=== PATIENT | male | born 1970 | race Caucasian/White ===

== ENCOUNTER 2021-12-06 13:40 | Outpatient (REF) | payer OTHER, SELFPAY ==
[2021-12-06 14:00] LABS: MANUAL DIFF FLAG NO
[2021-12-06 14:21] LABS: Basophils Percent Auto 0.5 % (0-2); Eosinophils Absolute Auto 0.4 X10*3/uL (0.0-0.4); Eosinophils Percent Auto 4.8 % (0-4); Hematocrit 46.6 % (42.0-52.0); Hemoglobin 15.5 g/dl (14.0-18.0); Imm Gran Abs Auto 0.01 X10*3/uL (0.00-0.03); Imm Gran Pct Auto 0.1 % (0.0-0.4); Lymphocytes Absolute Auto 2.7 X10*3/uL (1.2-4.9); Lymphocytes Percent Auto 35.6 % (20-40); Mean Corpuscular HGB Conc 33.3 g/dl (31.0-36.0); Mean Corpuscular Hemoglobin 29.6 pg (27.0-33.0); Mean Corpuscular Volume 88.9 fL (80.0-98.0); Monocytes Absolute Auto 0.6 X10*3/uL (0.1-1.2); Monocytes Percent Auto 7.5 % (2-11); Neutrophils Absolute Auto 3.8 x10*3/uL (2.0-8.3); Neutrophils Percent Auto 51.5 % (45-73); Platelet Count 187 X10*3/uL (160-400); Red Blood Count 5.24 X10*6/uL (4.60-5.80); Red Cell Distribution Width 11.9 % (11.0-16.0); White Blood Count 7.5 X10*3/uL (4.8-10.8)
[2021-12-06 14:48] LABS: Alanine Aminotransferase 21 U/L (0-40); Albumin Level 4.4 g/dL (3.5-5.0); Alkaline Phosphatase 65 U/L (39-117); Anion Gap 13 (12-20); Aspartate Amino Transferase 21 U/L (5-37); Bilirubin Total 1.1 mg/dL (0.0-1.0); Blood Urea Nitrogen 10 mg/dL (9-16); Calcium 9.1 mg/dL (8.4-10.2); Carbon Dioxide 26 mmol/L (22-29); Chloride 106 mmol/L (96-108); Cholesterol 236 mg/dL; Estimated Glomerular Filt Rate > 60; Glucose Fasting 89 mg/dL (60-99); HDL Cholesterol 61 mg/dL; LDL Cholesterol Calculated 158 mg/dl; Potassium 4.1 mmol/L (3.3-5.1); Sodium 141 mmol/L (135-145); Total Protein 7.3 g/dL (6.5-8.0); Triglycerides 87 mg/dL
[2021-12-06 15:02] LABS: Free T4 (Free Thyroxine) 1.03 ng/dL (0.71-1.85); PSA,Total (Free>4and<10) 2.48 ng/mL (0.00-4.00); Thyroid Stimulating Hormone 1.28 uIU/mL (0.32-4.0); Vitamin D 25-OH Total 17.5 ng/mL (>30)
== END 2021-12-06 13:41 | disposition home or self-care (01) ==
LOC: HO.LAB 13:40
PROVIDERS: PCP Internal Medicine Medical Oncology; Visit Provider Internal Medicine Medical Oncology
DX: Z00.00 Encounter for general adult medical examination without abnormal findings (principal); Z12.5 Encounter for screening for malignant neoplasm of prostate; N40.0 Benign prostatic hyperplasia without lower urinary tract symptoms
CPT/HCPCS: 36415; 80053; 80061; 82306; 84153; 84439; 84443; 85025

== ENCOUNTER 2023-03-23 13:26 | Outpatient (AMB) | payer OTHER, SELFPAY ==
--- NOTE | 2023-03-23 13:37 | A.OFFVIS_ITS ---
Intake Vital Signs 03/23/23 13:40 Height 5 ft 7 in Weight 150 lb BMI 23.5 BP 141/74 H Blood Pressure Location Lt brachial Position Sitting Pulse 91 Intake Visit Reasons: Colonoscopy Screening Intake Note: Patient nw consult for 1st pre colonoscopy screening. Patient denies talk to me about his complain, he will talk with provider. 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 He has many questions-as to the need-for colonoscopy-he expresses anxiety over having procedure Appetite is good Normal bowel No cardiac or respiratory issues No nausea, vomiting, hematemesis, hematochezia fever or chills [facility] Social History Household Members: Family Alcohol intake: never Patient Tobacco Use Status: Former Tobacco user Tobacco use type: Cigarette Use of substances other than those prescribed or required for medical reasons: No Review of Systems Const All systems reviewed & are unremarkable except as noted in HPI and below Card Denies chest pain and Denies dyspnea Resp Denies dyspnea GI Denies abdominal pain, Denies hematochezia, Denies change in bowel habits, Denies heartburn, Denies diarrhea and Denies nausea Psych Reports anxiety Physical Exam Vital Signs: Last Vital Signs Pulse 91 03/23/23 13:40 BP 141/74 H 03/23/23 13:40 BMI result Body Mass Index 23.5 Const General: cooperative, healthy appearing, comfortable and anxious Orientation/consciousness: patient oriented x3 Limitations: no limitations Eyes Sclerae: sclerae normal Resp Effort & Inspection: normal respiratory effort and able to speak in complete sentences Auscultation: clear to auscultation bilaterally, no rales, no rhonchi and no wheezes Cardio Rate: regular rate Rhythm: regular rhythm Heart sounds: S1 normal heart sound present and S2 normal heart sound present GI Palpation (GI): Soft to palpation and nontender Auscultation: normal bowel sounds Skin General skin exam: no rashes or lesions noted Neuro General: patient oriented x3 Extrem General: Yes full ROM Psych Appearance: grossly normal and well kempt Mental Status: mental status grossly normal Speech and movement: Normal speech and movement present and Clear speech present Affect: normal affect and Anxious affect present Attitude: cooperative Thought process: Normal thought process present Thought content: Normal thought content present Assessment & Plan Assessment & Plan (1) Encounter for screening colonoscopy: Comment: Anxious, reviewed indication, anesthesia reassured Need for escorted due to anesthesia Code(s): Z12.11 - Encounter for screening for malignant neoplasm of colon Plan index screening colonoscopy MG prep Orders: Orders Colonoscopy - GI Use Only 03/23/23 Z12.11 - Encounter for screening for malignant neoplasm of colon Medications: New bisacodyl (Dulcolax (bisacodyl)) Day before procedure, prep day Take 4 tablets by mouth upon awakening followed by large glass of water 20 mg (4 x 5 mg) PO ONCE 4 tabs 0RF colonoscopy prep 1 day Z12.11 - Encounter for screening for malignant neoplasm of colon polyethylene glycol 3350 (Miralax) Take as directed by mouth the day before your procedure. 238 grams PO ONCE 238 grams 0RF laxative effect 1 day Patient Instructions: index screening colonoscopy Indications, need for escorted due to anesthesia as well as rare risks reviewed Opportunity for questions (many) answered to his satisfaction MG prep, reviewed literature given Encouraged to call questions or concerns Appreciate the opportunity assist in the care this pleasant Gent Coding Level of Care Code New Pt Level 3 (48087) Diagnoses Encounter for screening colonoscopy Z12.11 Time Spent (min) 25
[2023-03-23 13:40] VITALS: BP 141/74; PULSE 91; BMI 23.5
== END 2023-03-23 16:23 | disposition home or self-care (01) ==
PROVIDERS: PCP Internal Medicine Medical Oncology; Visit Provider Physician Assistant
DX: Z12.11 Encounter for screening for malignant neoplasm of colon (principal); Z01.818 Encounter for other preprocedural examination
CPT/HCPCS: 99203

== ENCOUNTER → 2023-03-23 13:26 | Outpatient (BNVA) | payer OTHER, SELFPAY | PROVIDERS: PCP Internal Medicine Medical Oncology; Visit Provider Physician Assistant ==

== ENCOUNTER 2024-07-05 13:26 | Outpatient (REF) | payer SELFPAY ==
--- NOTE | 2024-07-05 14:23 | MHC.AU.HA3 ---
Hearing Instrument Follow-Up- Binaural Date of Visit: 07/05/24 Follow-Up Summary: Kendell visited with a hearing test from 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 He reports he has worn them for approximately a week and finds them very impressive, but states he wants to block out all noise at times, and based on his research would like to order a pair of custom earmolds for a solid seal. 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 He states he uses the automatic program, but wants to create his own programs using the abby. Advised patient that earmolds will not create a solid seal, as he has mild hearing loss in the lows and this would be inappropriate for his hearing and the earmolds would be made with a vent. Hearing aids will not act as hearing protection/ear plugs. Advised I generally recommend earmolds due to degree of hearing loss or retention issues-- he states he would like improved retention over the medium vented domes he is currently using. States he wants titanium-- wants the best . Advised this would cost $50 extra (per Ph[employer]ak) and I do not necessarily believe this is necessary, but he feels certain he would like this material. Discussed program use, inquired further about what patient is seeking from additional programs as he agrees automatic makes excellent changes on it's own. States he would like left toggle to control volume up/down, right up to control program and right down to turn off. Advised press and hold on each device is power off. He would like a restaurant program. Recommended wearing hearing aids regularly as we wait for earmolds to come in so he can give me better idea of what sort of additional programs he would like, if he finds any are necessary at all. Holding off on programming adjustments for now as aids will need to be reprogrammed once coupled with c-shells. Quoted $340 for titanium c-shells, $50 for programming changes. Will call when c-shells arrive. Recommendations: Recommendations: Patient will be contacted when materials have arrived. Diagnosis Code(s): Primary Diagnosis: H90.3 Bilateral Sensorineural Hearing Loss Signature: Provider: Jared Mcgovern, CCC-A
== END 2024-07-05 13:27 | disposition home or self-care (01) ==
LOC: HO.HAP 13:26
PROVIDERS: Visit Provider Internal Medicine Medical Oncology
DX: Z13.89 Encounter for screening for other disorder (principal)

== ENCOUNTER 2024-07-25 07:56 | Outpatient (REF) | payer SELFPAY ==
--- OUTSIDE RECORDS SUMMARY | 2024-07-25 07:58 | XMS_ITS ---
Author Organization Dinesh Hernandez III, MD Address [address] [place] [address] [place] [address] Care Team Providers Care Motorcoach Operator Name Role Phone Dinesh Hernandez Primary Care Provider REASON FOR VISIT annual exam Social History Sex Assigned At : Social History Observation Description Sex Assigned At Male Encounters Encounter Location Date Provider Diagnosis Dinesh Hernandez III, MD [address] [place] [address] [place] [address] 2023 Dinesh Hernandez Plan Of Treatment Next Appt Details Provider Name:Dinesh Hernandez, 10/06/2024 09:30:00 AM, [address] [place] [address] [place], [address], Provider Name:Dinesh Hernandez, 03/28/2025 09:30:00 AM, [address] [place] [address] [place], [address], Progress Notes * JAVIER ASHLEY LDOB: [birth year] (53 yo M)Acc No.[id number]:2023 Progress Notes Patient:?ASHLEY HERRERA Provider:?Dinesh Hernandez MD :1970???Age:52 Y???Sex:Male Massimo e:2023 Address:[address] [place] [address] [place], [id number] Subjective: * Chief Complaints: * ???1. Annual exam. * Medical History:? Objective: * Vitals:? Assessment: Plan: * Treatment: * Images: * The named appointment provid er may or may not be the originator of this progress note, and it is not deemed complete until electronically signed by the appointment provider. Sign off status: Pending * Provider:?Dinesh Hernandez MD Date:?10/13 Generated for Magnolia meyers/Mendy/Mitesh on:?07/25/2024 07:58 AM EDT
--- OUTSIDE RECORDS SUMMARY | 2024-07-25 07:58 | XMS_ITS | Patient Health Record ---
Author Organization Dinesh Hernandez III, MD Address [address] [place] [address] [place] [address] Care Team Providers Care Technical Editor Name Role Phone Dinesh Hernandez Primary Care Provider Allergies Allergen (clinical drug [...] 0.2 - 1.3 BLD 50 Negative - Reason For Referral Reason Evaluate and Treat Diagnosis 1 Hearing loss (H91.90 ) Referral Organization Dinesh Hernandez III, MD Referring Provider First Name Dinesh Referring Provider Last Name Mary Referring Provider Speciality Internal M edicine Referred Provider [facility] [place] Referred Provider Specialty Audiologists General Notes D, Elizabeth 03/15/2024 04:22:58 PM > Referral faxed and patient scheduled appointment with office directly Referral Priority Routine Referral Appointment Date 05/16/2024 Medications Medication SIG (Take, Route, Frequency, Duration) Notes Start Date End Date Status Albuterol Sulfate HFA 108 (90 Base) MCG/ACT 1 puff as needed Inhalation every 4 hrs Active Immunizations Vaccine Route Administration Date Status Comme nts Tdap Unknown 12/19/2021 Administered COVID- 19 Vaccine Unknown 09/07/2020 Administered Social History Tobacco Use: Social History Observation [...] ast year? No Points 0 Interpretation Negative Problems Problem Type SNOMED Code ICD Code Onset Dates Problem Status W/U Status Risk Notes Problem 3935634 Former smoker (Z87.891) Active confirmed He is strongly motivated not to smoke. He has a plan to prevent relapse in times of stress. Problem 787854910 Asthma (J45.909) Active confirmed He has had no wheezing since his last visit. He denies any recent allergies. Problem Benign prostatic hyperplasia (833095205) BPH (benign prostatic hyperplasia) (N40.0) Active confirmed He rises from sleep at most once a night to urinate. We have discussed lifestyle modifications he can make to reduce nocturia. He denies dysuria or hematuria. Problem 32279411 Allergic rhinitis (J30.9) Active confirmed He had only a few sniffles during pollen season this spring. He usually experiences rhinitis, more in the fall and we discussed various therapies. He could pursue. Problem 95288519 Hearing loss (H91.90) Active confirmed He has made an appointment to go to an decorator consultant to get hearing aids. Examination of his ears today was unremarkable Problem 031875394 Multiple environmental allergies (Z91.09) Active confirmed He will use antihistamines as needed as well as fluticasone. He will call me if he needs prescription medication. Vital Signs Heart Rate 84 /min 03/24/2024 Temperature 98.1 degrees Fahrenheit 03/24/2024 Blood pressure diastolic 80, 138 mm Hg 03/24/2024 Height 68 in 03/24/2024 Blood pressure systolic 135 mm Hg 03/24/2024 Weight 152 lbs 03/24/2024 BMI 23.11 kg/m2 03/24/2024 Encounters Encounter Location Date Provider Diagnosis Dinesh Hernandez III, MD [address] [place] [address] [place] [address] 03/24/2024 Dinesh Hernandez BPH (benign prostati c hyperplasia) N40.0 ; Hearing loss H91.90 ; Asthma J45.909 ; Former smoker Z87.891 ; Multiple environmental allergies Z91.09 ; Allergic rhinitis J30.9 and Colonoscopy refused Z53.20 Dinesh Hernandez III, MD [address] [place] [address] [place] [address] 11/10/2023 Dinesh Hernandez Annual physical exam Z00.00 Dinesh Hernandez III, MD [address] [place] [address] [place] [address] 03/15/2024 Dinesh Hernandez III, MD [address] [place] [address] [place] [address] 11/09/2023 Dinesh Hernandez III, MD [address] [place] [address] [place] [address] 11/09/2023 Dinesh Hernandez III, MD [address] [place] [address] [place] [address] 11/10/2023 Dinesh Hernandez Assessments Encounter Date Diagnosis (ICD Code) Assessment [...] made an appointment to go to an decorator consultant to get hearing aids. Examination of his ears today was unremarkable 11/10/2023 Annual physical exam (ICD-10 - Z00.00) He is healthy and well, and had a normal weight. His blood pressure was slightly high. He rises from sleep several times at night. We have addressed these issues. 03/24/2024 Asthma (ICD-10 - J45.909) He has [...] was referred to gastroenterology. Plan Of Treatment Pending Test Test Name Order Date PROFILE, FASTING (COMPREHENSIVE METABOLI C) 11/07/2022 PROFILE, FASTING (COMPREHENSIVE METABOLI C) 07/24/2016 PROFILE, FASTING (COMPREHENSIVE METABOLI C) 08/29/2021 PROFILE, FASTING (COMPREHENSIVE METABOLI C) 03/24/2024 PROFILE, FASTING (COMPREHENSIVE METABOLI C) 09/25/2016 LIPID PANEL 09/25/2016 LIPID PANEL 07/24/2016 FREE T4 (FT4) 08/29/2021 TSH (THYROID STIMULATING HORMONE) 2021 PSA, TOTAL 11/07/2022 PSA, TOTAL 08/29/2021 PSA, TOTAL 09/25/2016 PSA, TOTAL 07/24/2016 PSA, TOTAL 03/24/2024 CBC w DIFF 03/24/2024 CBC w DIFF 11/07/2022 CBC w DIFF 08/29/2021 CBC w DIFF 09/25/2016 CBC w DIFF 07/24/2016 VITAMIN D 25-OH TOTAL 08/29/2021 Lipid Panel 03/24/2024 Lipid Panel 11/07/2022 Lipid Panel 08/29/2021 Next Appt Details Provider Name:Dinesh Hernandez, 10/06/2024 09:30:00 AM, [address] [place] [address] [address], [place], [address], Provider Name:Dinesh Hernandez, 03/28/2025 09:30:00 AM, [address] [place] [address] [address], [place], [address], Insurance Providers Payer Name Payer Address Payer Phone Subscriber Number Group Number Insured Name Patient Relationship to Insured Coverage Start Date Coverage End Date [employer] [facility] [address] [facility] [place] [phone] [id number] ASHLEY CONTRERAS Self - patient is the insured Medical (General) History Medical History History ICD Code Allergic rhinitis J30.9 Asthma J45.909 Multiple environmental allergies Z91.09 hearing loss injury to tip of right fourth finger wit h skin graft age 9 former smoker Surgical History Surgery Date(Month/Year) laceration tip right fourth finger requi ring skin graft 1980 age 9 left breast skin donor scar No history Hospitalization History Reason Date(Month/Year) No history
--- OUTSIDE RECORDS SUMMARY | 2024-07-25 07:59 | XMS_ITS ---
Author Organization Dinesh Hernandez III, MD Address [address] [place] [address] Care Team Providers Care Content Strategist Name Role Phone Dinesh Hernandez Primary Care Provider [phone] Reason For Referral Reason Evaluate and Treat Diagnosis 1 Hearing loss (H91.90 ) Referral Organization Dinesh Hernandez III, MD Referring Provider First Name Dinesh Referring Provider Last Name Mary Referring Provider Speciality Internal M edicine Referred Provider [facility] Referred Provider Specialty Audiologists General Notes D, Elizabeth 03/15/2024 04:22:58 PM > Referral faxed and patient scheduled appointment with office directly Referral Priority Routine Referral Appointment Date 05/16/2024 REASON FOR VISIT Referral Social History Sex Assigned At : Social History Observation Description Sex Assigned At Male Encounters Encounter Location Date Provider Diagnosis Dinesh Hernandez III, MD [address] [place] [address] [place] [address] 03/15/2024 Dinesh Hernandez Plan Of Treatment Referrals Referral Date Details 03/15/2024 03/15/2024, Evaluate and Treat, and [facility] Next Appt Details Provider Name:Dinesh Hernandez, 10/06/2024 09:30:00 AM, [address] [place] [address] [place], [address], Provider Name:Dinesh Hernandez, 03/28/2025 09:30:00 AM, [address] [place] [address] [place], [address], Progress Notes * ASHLEY HERRERA LDOB: [birth year] (53 yo M)Acc No.[id number]:03/15/2024 Patient:?ASHLEY HERRERA :1970???Age:53 Y???Sex:Male Address:[address] [place] [address], [address] Subjective: * Chief Complaints: * ???Referral * Medical History:? * Surgical History:? * Hospitalization/Major Diagno stic Procedure:? * Medications:? Objective: * Vitals:? * Physical Examination:? Assessment: Plan: * Treatment: * Procedure Codes:? * true * Date:? Generated for Magnolia meyers/Mendy/eTkaylynsmitting on:?07/25/2024 07:59 AM EDT Consultation Request Notes Referral Date Referring Provider Referred Provider Not hazel 03/15/2024 Dinesh Hernandez and Spee h Evaluate and Treat
--- OUTSIDE RECORDS SUMMARY | 2024-07-25 07:59 | XMS_ITS ---
Author Organization Dinesh Hernandez III, MD Address [address] [place] [address] Care Team Providers Care Rehanger Name Role Phone Dinesh Hernandez Primary Care [...] Date Provider Diagnosis Dinesh Hernandez III, MD [address] [place] [address] [place] [address] 03/24/2024 Dinesh Hernandez BPH (benign prostati c [...] made an appointment to go to an plastics fitter to get hearing aids. Examination of his [...] ov no tests, Regular Checkup Provider Name:Dinesh Hernandez, 10/06/2024 09:30:00 AM, [address] [place] [address] [address], [place], [address], Provider Name:Dinesh Hernandez, 03/28/2025 09:30:00 AM, [address] [place] [address] [address], [place], [address], Progress Notes * KENDELL HERRERA LDOB: [birth year] (53 yo M)Acc No.[id number]:03/24/2024 Progress Notes Patient:?KENDELL HERRERA Provider:?Dinesh Hernandez MD :1970???Age:53 Y???Sex:Male Massimo e:03/24/2024 Address:[address] [place], [place] [id number] Subjective: * Chief Complaints: * ???Annual Exam * HPI: ???Depression Screening:?PHQ-9?Little interest or pleasure in doing things?Not at all ?Feeling down, depressed, or hopeless?Not at all ?Trouble falling or staying asleep, or sleeping too much?Not at all ?Feeling tired or having little energy?Not at all ?Poor appetite or overeating?Not at all ?Feeling bad about yourself or that you are a failure, or have let yourself or your family down?Not at all ?Trouble concentrating on things, such as reading the newspaper or watching television?Not at all ?Moving or speaking so slowly that other people could have noticed; or the opposite, being so fidgety or restless that you have been moving around a lot more than usual?Not at all ?Thoughts that you would be better off or of hurting yourself in some way?Not at all ?Total Score?0 ???COVID-19 Screening:?Questions?Have you had any new onset fever, chills, cough, congestion, sore throat, shortness of breath, muscle aches??No ???SDOH Questions:?SDOH Questions?In the past year have you been worried about losing your housing??No ?In the past year have you or any family members you live with been unable to get any of the following when it was really needed? Check all that apply:?None ???:? 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 The pain is more pronounced when he gets home after work, but his knees feel okay in the morning. He also mentioned that his knees do not hurt when he is not working on weekends. 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?Sciatica?denies.?Weakness?denies.?Skin:?Itching?denies.?Rash?denies.?Skin lesion(s)?denies.?Neurologic:?Difficulty speaking?denies.?Dizziness?denies.?Headache?denies.?Low back pain?denies.?Psychiatric:?Depressed mood?denies.? * Medical History:? * Surgical History:?laceration tip right fourth finger requiring skin graft 1981age 9 left breast skin donor scar No history * Hospitalization/Major Diagno stic Procedure:?No history * Family History:?Father: dece ased 62 yrs, Cause of unknown.?Mother: 63 yrs, Cause of unknown, diagnosed with HTN.?Children: alive.?Siblings: alive.?4 brother(s) , 1 sister(s) . 1 son(s) , 1 daughter(s) - healthy. .? His sister has hypertension. His brothers have asthma and hypertension and diabetes. His 2 children are alive and healthy and well. They are Kendell and Lora. * Social History:?Tobacco Use:?Tobacco Use/Smoking?Patient is a?former smoker ?Tobacco Control (Standard)?Tobacco use:?Former smoker ?How long has it been since you last smoked??Greater than 10 years ?Additional Findings: Tobacco non-user?Ex-cigarette smoker ???Drugs/Alcohol:?Drugs?Have you used drugs other than those for medical reasons in the past 12 months??No ???Drug/Alcohol:?AUDIT-C (Standard)?Did you have a drink containing alcohol in the past year??No ?Points?0 ?Interpretation?Negative ???He was born in [place], [place]. He has been to [place] for 20 years. He has 2 healthy children. 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 * Medications:?TakingAlbuterol Sulfate HFA 108 (90 Base) MCG/ACT Aerosol Solution 1 puff as needed Inhalation every 4 hrs Medication List reviewed and reconciled with the patientTaking Albuterol Sulfate HFA 108 (90 Base) MCG/ACT Aerosol Solution 1 puff as needed Inhalation every 4 hrs Medication List reviewed and reconciled with the patient * Allergies:?No Known Drug All ergyno[Allergies Verified] Objective: * Vitals:?Ht: 68, Wt: 152, BMI :23.11, BP: 135/80,138/70, HR: 84, Temp: 98.1, Wt- k.95. * Examination: ???General Examination: ?GENERAL APPEARANCE:?pleasant, well nourished, well developed, in no acute distress, calm and relaxed, man.?HEAD:?atraumatic, normocephalic.?EYES:?eomi, perrla, anicteric, conjugate.?EARS:?Normal anatomy with significant bilateral hearing loss.?NOSE:?septum intact.?ORAL CAVITY:?normal, unremarkable.?NECK/THYROID:?no jugular venous distention, no carotid bruit, thyroid normal.?LYMPH NODES:?no enlarged lymph nodes,spleen normal.?SKIN:?no suspicious lesions, anicteric.?HEART:?no clicks, gallops, murmurs, or rubs, regular rhythm, S1, S2 normal, no s3, or vascular bruits.?LUNGS:?clear to auscultation .?BREASTS:??no masses palpable bilaterally.?ABDOMEN:?bowel sounds normal, no ascites, no organomegaly, no mass.?RECTAL EXAM:?He was referred for a colonoscopy.?MUSCULOSKELETAL:?extremities unremarkable, no clubbing, cyanosis or edema.?PERIPHERAL PULSES:?normal.?NEUROLOGIC:?alert and oriented, cranial nerves 2-12 grossly intact, deep tendon reflexes 2+ symmetrical, motor strength normal upper and lower extremities, sensory exam intact.?PSYCH:?alert, oriented, thought process logical, goal directed, speech clear, mood/affect full range, judgement and insight good, good eye contact, cooperative with exam, cognitive function intact.? : ???{'Eardrum':'Normal', 'Lungs': 'Fine', 'Heart': 'Regular rhythm, no leaking valves', 'Abdomen': 'No pain', 'Knees': 'No swelling or grinding'}. ??? Assessment: * Assessment: 1.?Hearing loss - H91.90 (Pr shaji)???Notes :He has made an appointment to go to an plastics fitter to get hearing aids.? Examination of his ears today was unremarkable???2.?BPH (benign prostatic hyperplasia) - N40.0???Notes :He rises from sleep at most once a night to urinate.? We have discussed lifestyle modifications he can make to reduce nocturia.? He denies dysuria or hematuria.???3.?Asthma - J45.909???Notes :He has had no wheezing since his last visit.? He denies any recent allergies.???4.?Former smoker - Z87.891???Notes :He is strongly motivated not to smoke. He has a plan to prevent relapse in times of stress.???5.?Multiple environmental allergies - Z91.09???Notes :He will use antihistamines as needed as well as fluticasone. He will call me if he needs prescription medication.???6.?Allergic rhinitis - J30.9???Notes :He had only a few sniffles during pollen season this spring. He usually experiences rhinitis, more in the fall and we discussed various therapies. He could pursue.???7.?Colonoscopy refused - Z53.20???Notes :In the past he did not want to have a colonoscopy.? After we discussed it again today he did agree to the procedure and he was referred to gastroenterology.??? Plan: * Treatment: 2.?Asthma?LAB: PROFILE, FASTING (COMPREHENSIVE METABOLIC) ?LAB: PSA, TOTAL ?LAB: CBC w DIFF ?LAB: Lipid Panel 3.?Others? Continue Albuterol Sulfate HFA Aerosol Solution, 108 (90 Base) MCG/ACT, 1 puff as needed, Inhalation, every 4 hrs.?? * Labs:? * ?Lab: URINE DIP STICK (C ollection Date & Time - 03/24/2024) ? Value Reference Range ?SG 1.020 1.005 - 1.025 * ?pH 5.0 5.0 - 9.0 * ?ALINE Negative Negative - * ?NIT Negative Negative - * ?PRO 30 Negative - Trac e * ?GLU Negative Negative - * ?KET 5 Negative - * ?UBG 0.2 0.1 - 1.8 * ?CHAO 1 0.2 - 1.3 * ?BLD 50 Negative - * Procedure Codes:?66953 URINE -NO MICRO * Preventive Medicine:? ??Counseling:?Smoking/Tobacco Use?Patient counseled on the dangers of tobacco use and urged to quit.?03/24/2024 * Follow Up:?6 Months, In six months (Reason: ov no tests, Regular Checkup) * Images: * Sign off status: Completed true * Provider:?Dinesh Hernandez MD Date:?03/13 Generated for Magnolia meyers/Mendy/eTransmitting on:?07/25/2024 07:58 AM EDT History and Physical Notes * HPI (History [...]
--- NOTE | 2024-07-25 10:33 | MHC.AU.HA3 ---
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 Warranty: 07/20/27 Diesel Engine Mechanic Loss and Damage Warranty: 07/20/27 [facility] Service Plan: n/a Battery Size: Rechargeable Ground Operations Superintendent/Slim Tube: 2 M Earmold/Dome/CShell/SlimTip:Phonak C-Shell Titanium Lynch S#[id number] Warranty 11/11/2024 Type of Wax Guard: cerustop Dispensed By: online purchase Left Ear: Cristino, Model, Color, Serial Number: Justin Lizarragao [id number], graphite, [id number] 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 Fit appears excellent. Pt wishes to have Real Ear measurements taken, due to equipment malfunction he can return once device is up and running for REM at no extra charge. Had several requests for programming changes. Added silent program to mimic one he created in his abby which has NR maxed out and mics fully directional. Wanted left device button to do VC, right to do program/mute, not possible in [employer] so button is now quick press VC up/down, long press program change up/mute down, press and hold power on/off. Requested names in phone for the low-energy left/right device listings to be changed, not possible. Decreased overall gain 3 dB for patient comfort. Noted dramatically different sound quality with c-shells but will return if further adjustments are needed. Recommendations: Recommendations: Hearing instrument follow-up or maintenance as needed. Diagnosis Code(s): Primary Diagnosis: H90.3 Bilateral Sensorineural Hearing Loss Signature: Provider: Jared Mcgovern, CCC-A
== END 2024-07-25 07:57 | disposition home or self-care (01) ==
LOC: HO.HAP 07:56
PROVIDERS: Visit Provider Internal Medicine Medical Oncology
DX: Z46.1 Encounter for fitting and adjustment of hearing aid (principal); H90.3 Sensorineural hearing loss, bilateral
CPT/HCPCS: 92593; 92700; V5264

== ENCOUNTER 2024-07-25 09:15 | Outpatient (REF) | payer OTHER, SELFPAY ==
[2024-07-25 09:25] LABS: MANUAL DIFF FLAG NO
[2024-07-25 09:53] LABS: Basophils Absolute Auto 0.1 X10*3/uL (0.0-0.2); Eosinophils Absolute Auto 0.5 X10*3/uL (0.0-0.4); Eosinophils Percent Auto 7.8 % (0-4); Hematocrit 46.8 % (42.0-52.0); Imm Gran Abs Auto 0.02 X10*3/uL (0.00-0.03); Imm Gran Pct Auto 0.3 % (0.0-0.4); Lymphocytes Absolute Auto 1.9 X10*3/uL (1.2-4.9); Lymphocytes Percent Auto 30.1 % (20-40); Mean Corpuscular HGB Conc 34.2 g/dl (31.0-36.0); Mean Corpuscular Hemoglobin 30.8 pg (27.0-33.0); Mean Corpuscular Volume 90.2 fL (80.0-98.0); Mean Platelet Volume 10.8 fL (9.4-12.4); Monocytes Absolute Auto 0.5 X10*3/uL (0.1-1.2); Monocytes Percent Auto 7.4 % (2-11); Neutrophils Absolute Auto 3.3 x10*3/uL (2.0-8.3); Neutrophils Percent Auto 53.4 % (45-73); Platelet Count 191 X10*3/uL (160-400); Red Blood Count 5.19 X10*6/uL (4.60-5.80); White Blood Count 6.3 X10*3/uL (4.8-10.8)
--- OUTSIDE RECORDS SUMMARY | 2024-07-25 10:14 | XMS_ITS | Continuity of Care Document ---
Author Organization [facility] Address [address] [place] [address] Phone Care Team Providers Care Traveling Accountant Name Role Phone Enabling, Services Unavailable Unavailable Allergies, Adverse Reactions, Alerts Substance Reaction Status Criticality No Known Allergies Active No Inform ation Medications Medication Instructions Dosage Effective Dates (start - stop) Status Comments Novolog FlexPen U-100 Insulin aspart 100 unit/mL (3 mL) subcutaneous inject 15 by Subcutaneous route 3 times every day 15 - Active okay to switch with covered alternatives: Admelog, Humalog, Apidra Semglee (insulin glargine-yfgn) Pen 100 unit/mL (3 mL) subcutaneous inject 62 unit by subcutaneous route every bedtime as per insulin protocol 62 unit - Active metformin ER 500 mg tablet,extended release 24 hr TAKE 2 TABLET BY ORAL ROUTE 2 TIMES EVERY DAY WITH MEALS FOR DM - Active rosuvastatin 10 mg tablet take 1 tablet by oral route every day for hyperlipidemia 10 MG - Active pen needle, diabetic 32 gauge x 3/16 use insulin daily for DM type 2 e11.65 - Active Ozempic 2 mg/dose (8 mg/3 mL) subcutaneous pen injector inject (2MG) by subcutaneous route every week on the same day of each week for DM type 2 e11.65 - Active FreeStyle Magdi 2 Sensor kit Check 3-5 times daily for DM type 2 e11.65 - Active FreeStyle Magdi 2 [place] check 3-5 times daily for DM type 2 e11.65 - Active Procedures Procedure Date Eye Exam With Photos Ind Cushion Maker 30 Min Ind Nutrition Est- 30 Min ( V V ) Ind Cushion Maker 30 Min MTM By Pharm, Est,15 Min DIAST BP < 80 MM HG SYST BP LT 130 MM HG VENIPUNCTURE [place] [id number] Panel (Q) [id number] (Q) MTM Bv Pharm Est 15 Min ( V V ) MTM Bv Pharm Est 15 Min ( V V ) Ind Nutrition Est- 30 Min ( V V ) Office Visit (Phone) RVW MEDS BY RX/DR IN [facility] AMNT PAIN NOTED; NONE PRSNT MED LIST DOCD IN [facility] MTM Bv Pharm Est 15 Min ( V V ) MTM Bv Pharm Est 15 Min ( V V ) MTM Bv Pharm Est 15 Min ( V V ) Ind Nutrition Est - 30 Min MTM Bv Pharm Est 15 Min ( V V ) 024 MTM Bv Pharm Est 15 Min ( V V ) Ind Cushion Maker 45 Min Colon Rectal Cancer Screening Office Visit, Est RVW MEDS BY RX/DR IN [facility] AMNT PAIN NOTED; NONE PRSNT MED LIST DOCD IN [facility] VENIPUNCTURE [place] [id number] (Q) [id number] Panel (Q) [id number]- TSH T4 (Q) MTM By Pharm MASTIC SPRAYER 15min ( V V ) MTM By Pharm Addl 15Min (V V ) Medical Nutrition Ind 1Hour ( V V ) Ind Cushion Maker 15 Min Office Visit, Est RVW MEDS BY RX/DR IN [facility] MED LIST DOCD IN [facility] DIAST BP < 80 MM HG SYST BP LT 130 MM HG Eye Exam With Photos Ind Cushion Maker 45 Min Hearing Test Vision Screening F.I.T Kit Given Estab Pt 40-64 Yrs RVW MEDS BY RX/DR IN [facility] MED LIST DOCD IN [facility] AMNT PAIN NOTED; PAIN PRSNT DIAST BP < 80 MM HG SYST BP LT 130 MM HG VENIPUNCTURE [place] [id number] (Q) [id number] Panel (Q) [id number]- TSH T4 (Q) [id number] Total (Q) VENIPUNCTURE [place] [id number] (Q) [id number] (Q) [id number]- LFT (Q) [id number]- Lipid Panel W/Reflex (Q) [id number]-Kzkbmiflc Trachorr (Q) 024 [id number] (Q) [id number] (Q) [id number] W/Reflux Culture (Q) 2023 [id number]-Ybryyuq D (Q) [id number] (Q) Office Visit, New AMNT PAIN NOTED; NONE PRSNT Call Center Triage Nurse Advance Directives Directive Yes / No Effective Date File Name No Information Encounters Encounter Description Practice Location Reason(s) For Visit Diagnoses Date Provider Providers Copied on Encounter Ind Cushion Maker 30 Min [facility] n, [address], [place], [address], tel:[phone] [place] Adult Retinal Screen Results (chief complaint)D M FOOT Screen (chief complaint)B lood Glucose Readings F/U (chief complaint) Type 2 diabetes mellitus without complications 5 Enabling Services. [address] [place] [address], [address], [place]. tel:[phone] [facility] n, [address] [place], [address], tel:[phone] [place] Adult T2DM (chief complaint) Exercise counselingDietar y counseling and surveillance 5 Enabling Services. [facility] [place], [address], [place]. tel:[phone] Ind Cushion Maker 30 Min [facility] n, [address] [place] [address], [address], [place] tel:[phone] [place] Adult Blood Glucose Readings F/U (chief complaint) Counseling, unspecified 5 Enabling Services. [address] [place] [address], [address], [place]. tel:[phone] MTM By Pharm, Est,15 Min [facility], [address] [place] [address], [address], [place] tel:[phone] [facility] Medicine DM type 2 (chief complaint) Type 2 diabetes mellitus without complications 5 Tossoun Jaylan. [address] [place], [place], [id number], [place]. tel:[phone] [facility] n, [address] [place], [address], tel:[phone] [place] Adult DM type 2 (chief complaint) Type 2 diabetes mellitus without complications 0- 4 Tossoun Jaylan. [address] [place], [place], [id number], [place]. tel:[phone] [facility] n, [address] [place], [address], tel:[phone] [place] Adult DM type 2 (chief complaint) Type 2 diabetes mellitus without complications 6 4 Tossoun Jaylan. [address] [place], [place], [address] [place] [address], [place]. tel:[phone] [facility] n, [address], [place], [facility], tel:[phone] [place] Adult T2DM (chief complaint) Exercise counselingDietar y counseling and surveillance 4 4 [facility] Services. [address] [place] [address], [facility], . tel:[phone] [facility] n, [address], [place], [facility], tel:[phone] [place] Adult Episodic (chief complaint)d iabetes (chief complaint) Type 2 diabetes mellitus without complications 2 3 4 [facility]. [address] [place], [address], [place]. tel:[phone] [facility] n, [address] [place], [address], tel:[phone] [place] Adult DM type 2 (chief complaint) Type 2 diabetes mellitus without complications 0 4 Tossoun Jaylan. [address] [place], [place], [id number], [place]. tel:[phone] [facility] n, [address], [place], [address], [place] tel:[phone] [facility] No Information 4 Nursing Visit. [address] [place], [place], [id number], [place]. tel:[phone] [facility] n, [address], [place], [address], [place] tel:[phone] [place] Adult DM type 2 (chief complaint) Type 2 diabetes mellitus without complications Dec-2 4 Tossoun Jaylan. [address] [place], [place], [id number], [place]. tel:[phone] [facility] n, [address] [place], [address], tel:[phone] [place] Adult DM type 2 (chief complaint) Type 2 diabetes mellitus without complications Dec-0 4 Tossoun Jaylan. [address] [place], [id number], [place]. tel:[phone] [facility] n, [address] [place], [address], [place] tel:[phone] [place] Adult t2dm (chief complaint) Exercise counselingDietar y counseling and surveillanceBody mass index (BMI) 36.0-36.9, adult Nov-2 4 Enabling Services. [address] [place], [address], [place]. tel:[phone] [facility] n, [address] [place], [address], [place] tel:[phone] [place] Adult DM type 2 (chief complaint) Type 2 diabetes mellitus without complications Nov-0 4 Tossoun Jaylan. [address] [place], [id number], [place]. tel:[phone] [facility] n, [address], [place], [address], [place] tel:[phone] [place] Adult DM type 2 (chief complaint) Type 2 diabetes mellitus without complications 4 Tossoun Jaylan. [address] [place], [place], [id number], [place]. tel:[phone] Ind Cushion Maker 45 Min [facility] n, [address], [place], [address], [place] tel:[phone] [place] Adult FreeStyle Magdi 2 Sensor Teaching (chief complaint)I nsulin Teaching (chief complaint) Counseling, unspecifiedEncou nter for screening for malignant neoplasm of colon 4 Enabling Services. [address] [place] [address], [address], [place]. tel:[phone] Office Visit, Est [facility] n, [address], [place], [address], [place] tel:[phone] [place] Adult Episodic (chief complaint)d iabetes (chief complaint) Type 2 diabetes mellitus without complication, without long-term current use of insulinMixed hyperlipidemiaTe ar of medial meniscus of left knee, current, unspecified tear type, initial encounter 4 Gabby Khan. [address] [place], [place], [id number], [place]. tel:[phone] [facility] n, [address], [place], [address], [place] tel:[phone] [place] Adult DM type 2 (chief complaint) Type 2 diabetes mellitus without complications 4 Tossoun Jaylan. [address], [place], [id number], [place]. tel:[phone] [facility] n, [address] [place], [address], tel:[phone] [place] Adult DM mgmt (chief complaint) Exercise counselingDietar y counseling and surveillance 4 Enabling Services. [address] [place] [address], [facility], . tel:[phone] Ind Cushion Maker 15 Min [facility] n, [address] [place], [address], tel:[phone] [place] Adult Trulicity Teaching (chief complaint) Counseling, unspecified 4 Enabling Services. [address] [place] [address], [facility], . tel:[phone] Office Visit, Est [facility] n, [address] [place], [address], tel:[phone] [place] Adult Episodic (chief complaint)d iabetes (chief complaint) Body mass index (BMI) 36.0-36.9, adultType 2 diabetes mellitus without complication, unspecified whether retirement insulin use 4 Gabby Khan. [address] [place], [place], [id number], . tel:[phone] [facility] n, [address] [place], [address], [place] tel:[phone] [place] Adult Cataract cortical, senile, unspecified laterality 4 [facility] Services. [address] [place] [address], [address], [place]. tel:[phone] Ind Cushion Maker 45 Min [facility] n, [facility] [place], [address], [place] tel:[phone] [place] Adult Retinal (chief complaint)D M Education (chief complaint) Type 2 diabetes mellitus with hyperlipidemiaCo unseling, unspecified Jun-3 4 En[facility] Services. [address] [place], [place], [facility], . tel:[phone] Estab Pt 40-64 Yrs [facility] n, [address], [place], [facility], tel:[phone] [place] Adult preventive exam (chief complaint)d iabetes (chief complaint)k nee pain (chief complaint) Encounter for general adult medical examination without abnormal findingsBody mass index (BMI) 36.0-36.9, adultEncounter for screening for malignant neoplasm of colonType 2 diabetes mellitus with hyperlipidemiaHy perlipidemia, unspecifiedPain, joint, knee, leftElevated bilirubin 4 Cheterese Garnerit. [address] [place], [place], [id number], . tel:[phone] Office Visit, [facility] n, [address], [place], [facility], tel:[phone] [place] Adult Episodic (chief complaint) Type 2 diabetes mellitus without complication, unspecified whether retirement insulin use 4 Julieta Ley. [address] [place], [address], . tel:[phone] [facility] n, [address] [place], [address], tel:[phone] Call Center Triage No DX Code 4 Nursing Visit. [address], [place], [id number], [place]. tel:[phone] [facility] n, [address] [place], [address], tel:[phone] No Information 4 No Information Family History Family Member Type Diagnosis Age At Onset Father Problem Hypercholesterolemia Mother Problem Diabetes mellitus Father Problem Hypertension Mother Problem Hypertension Father Problem Diabetes mellitus Mother Problem Hypercholesterolemia Immunizations Vaccine Date Status Comments SARS-COV-2 (COVID-19) vaccin e, mRNA, spike protein, LNP, preservative free, 30 mcg/0.3 mL dose 12 years of age and older (Pfizer Comirnaty) administered Note: [facility] ; Source: Other Provider INFLUENZA administered Note: [facility] ; Source: Other Provider Flu quadrivalent injectable MDCK pfree administered Note: IMM Info from CAIR, Administered at Location: [id number] ; Source: Other Provider Pneumococcal conjugate PCV20 administered Note: IMM Info from [facility]IR, Administered at Location: [facility] ; Source: Other Provider Flu quadrivalent injectable pfree administered Note: IMM Info from [facility], Administered at Location: [facility] ; Source: Other Provider COVID-19 mRNA bivalent 12+ administered N ote: IMM Info from [facility], Administered at Location: [facility] ; Source: Other Provider Orphazyme mRNA LNP-S PF 12yrs a nd older administered Note: IMM Info from [facility], Administered at [facility] ; Source: Other Provider HepB-Adult administered Note: IMM Info from [facility]IR, Administered at Location: [facility] ; Source: Other Provider Zoster administered Note: IMM Info from [facility]IR, Administered at Location: [facility] ; Source: Other Provider COVID-19, mRNA,LNP-S,PF administered Note : IMM Info from [place]IR, Administered at Location: [facility] ; Source: Other Provider Flu quadrivalent injectable MDCK pfree administered Note: IMM Info from CAIR, Administered at Location: [facility] ; Source: Other Provider Tdap administered Note: IMM Info from [facility]IR, Administered at Location: [facility] ; Source: Other Provider HepB-Adult administered Note: IMM Info from [facility]IR, Administered at Location: [facility] ; Source: Other Provider Pneumococcal 23 administered Note: IMM In fo from [facility]IR, Administered at Location: [id number] ; Source: Other Provider COVID-19, mRNA,LNP-S,PF administered Note : IMM Info from CAIR, Administered at Location: [facility] Vaccine Preventable Disease Control [facility] ; Source: Other Provider COVID-19, mRNA,LNP-S,PF administered Note : IMM Info from CAIR, Administered at Location: [facility] Vaccine Preventable Disease Control [facility] ; Source: Other Provider HepB-Adult administered Note: IMM Info from CAIR, Administered at Location: [facility] ; Source: Other Provider Zoster administered Note: IMM Info from CAIR, Administered at Location: [facility] ; Source: Other Provider Flu quadrivalent injectable pfree administered Note: IMM Info from [facility]IR, Administered at Location: [facility] ; Source: Other Provider Payers Payer name Insurance type Covered democrat ID Laine cohen(s) Covered [facility] CI [id number] Social History Type Description Quantity Date Captured Comments Alcohol Use Details Unknown Caffeine Use Details Unknown Tobacco Use Status No Information Smoking Status Never smoker Sex Male Chief Complaint And Reason For Visit From encounter dated '07/23/2024 09:00'. Retinal Screen Results (chief complaint). Description: Patient was educated on diabetic retinopathyand the importance to have a yearly retinal screen and/or ophthalmology visit. Patient was also educated on the importance to have glucose control. Discussed retinal process and answered patient's questions. Patient made aware he will not receive phone call if report comes back normal. If re tinal is unable to be viewed or if report comes back abnormal a referral will be processed and the patient will receive referral by mail to Optometry/Ophthalmology. Photos taken and uploaded to [employer] for review.Last Retinal: Pt reported that he had bilateral cataracts and he had surgery to removethem last year in [place]. Pt reports that he has not [facility]. DM: Pt presents with a history of approximately 6yrs with DM. Insulin: Pt reports that he started using insulin last year. Family Hx of Glaucoma: Pt is not sure if he has a family history of Glaucoma.Last A1C: 1 [id number] advised to contact [facility] for any further questions and/or concerns.[facility] DM FOOT Screen (chief complaint). Description: Pt presents today for monofilament exam. Discussed proper foot care and maintenance with pt. Pt verbalized understanding. Educated pt to check feet periodically, keep skin dry, apply moisturizing lotion for dryness, check often for blisters, calluses, cuts or sores, see a doctor if you notice any of these, and keep glucose in control to prevent Diabetic Neuropathy. Monofilament Exam results: NORMAL Comments: Pt reports no complaints. [facility] Blood Glucose Readings F/U (chief complaint). Description: Reason for Visit: Blood Glucose ReadingsF/U Patient came in today for a Blood Glucose Readings F/U appt. Patient brought FreeStyle Magdi 2 [place]. The following BG reading averages were obtained from the patient's FreeStyle Magdi 2reader:Last 14 days Average: [id number]: 1746am-12pm: [id number]: 2056pm-12am: 191Last 7 days Aver age:12am-6am: 1166am-12pm: [id number]: 1456pm-12am: 230Is the patient taking diabetic meds as prescribed?: YESPt reported that he did restart Ozempic and tomorrow(07/23/24) will be his third injection.Pt reports taking 2 tablets of Metformin BID. Pt reports that he injects 62 units every bedtime ofSemeglee. Pt reports that he injects 15 units of Novolog BID before meals. Any episodes of hypoglycemia within the last two months or since their previous visit? NOLast A1C results and date drawn: [id number] patient on goals for A1c <7 in order to prevent DM complications. Nutrition: Discussed recommended carb. portions. Practice portion control, reduce fat intake and eat more veggies. Eat smaller more frequent meals Pt made SMG goal to decrease carbs including sweet bread and tortillas and increase vegetable intake. Physical Activity: Recommended pt to exercise 5x/ week for at least 30 mins each time. Comments: Pt reported that he exercises twice a week for one hour. Pt made SMG to increase exercise to 3x/week. Reminded pt of upcoming Clinical Pharmacist appt. Pt verb alized understanding. [facility] Reason For Referral Reason For Referral No Information Plan Of Treatment Date Type Action Status Goal Depression screening. Due on due Goal GFR. Due on due Goal Diabetes screening. Due on due Goal Health Literacy Assessment d ue Goal Tdap due Goal Hemoglobin A1C. Due on due Goal Dental exam. Due on 025 due Goal Hep C Ab. Due on due Goal ASCVD 10 year risk. Due on A due Goal Influenza vaccine. Due on due Goal Foot exam. Due on due Goal Hepatitis C screening. Due o n due Goal Hep B (). Due on 025 due Goal Td vaccine. Due on 31 due Goal FIT. Due on due Goal TB Risk Assessment. Due on due Goal Dilated eye exam. Due on Jul due Goal Shingrix (). Due on due Goal CPE. Due on due Goal Pneumococcal vaccine. Due on due Goal Unhealthy drug use screening . Due on due Goal Diet education completed Goal CPE. Due on due Goal TB Risk Assessment. Due on due Goal Hemoglobin A1C. Due on due Goal GFR. Due on due Goal Depression screening. Due on due Goal Hep B (). Due on due Goal Influenza vaccine. Due on Oc due Goal Health Literacy Assessment d ue Goal Hep C Ab. Due on due Goal Dilated eye exam. Due on Jun due Goal Foot exam. Due on due Goal ASCVD 10 year risk. Due on due Goal Tdap due Goal Diabetes screening. Due on due Goal Unhealthy drug use screening . Due on due Goal Dental exam. Due on due Goal Td vaccine. Due on due Goal FIT. Due on due Goal Hepatitis C screening. Due o n due Goal Pneumococcal vaccine. Due on due Goal Shingrix (). Due on due Goal Diet education completed Goal Foot exam. Due on due Goal Tdap due Goal Td vaccine. Due on due Goal Hep B (1st). Due on due Goal Diabetes screening. Due on M due Goal TB Risk Assessment. Due on M due Goal Lipid panel. Due on due Goal Hemoglobin A1C. Due on due Goal Influenza vaccine. Due on Oc due Goal Pneumococcal vaccine. Due on due Goal CPE. Due on due Goal Dental exam. Due on due Goal Unhealthy drug use screening . Due on due Goal Depression screening. Due on due Goal Health Literacy Assessment d ue Goal GFR. Due on due Goal Hep C Ab. Due on due Goal ASCVD 10 year risk. Due on N due Goal Shingrix (). Due on due Goal Dilated eye exam. Due on Feb due Goal FIT. Due on due Goal Urine microalbumin. Due on N due Goal Hepatitis C screening. Due o n due Goal Urine microalbumin. Due on S due Goal Td vaccine. Due on due Goal Diabetes screening. Due on M due Goal Hepatitis C screening. Due o n due Goal Pneumococcal vaccine. Due on due Goal GFR. Due on due Goal TB Risk Assessment. Due on M due Goal Foot exam. Due on due Goal Hep C Ab. Due on due Goal Health Literacy Assessment d ue Goal Influenza vaccine. Due on Se due Goal ASCVD 10 year risk. Due on S due Goal Dental exam. Due on due Goal Hemoglobin A1C. Due on due Goal Depression screening. Due on due Goal CPE. Due on due Goal Tdap due Goal Shingrix (). Due on due Goal FIT. Due on due Goal Unhealthy drug use screening . Due on due Goal Dilated eye exam. Due on Dec due Goal Hep B (). Due on due Goal Hep C Ab. Due on due Goal ASCVD 10 year risk. Due on A due Goal Health Literacy Assessment d ue Goal FIT. Due on due Goal Hemoglobin A1C. Due on due Goal Depression screening. Due on due Goal Pneumococcal vaccine. Due on due Goal Influenza vaccine. Due on due Goal Dental exam. Due on due Goal Shingrix (). Due on due Goal Urine microalbumin. Due on A due Goal Foot exam. Due on due Goal Unhealthy drug use screening . Due on due Goal Dilated eye exam. Due on Nov due Goal CPE. Due on due Goal GFR. Due on due Goal Hep B (). Due on due Goal Hepatitis C screening. Due o n due Goal Diabetes screening. Due on M due Goal Tdap due Goal TB Risk Assessment. Due on due Goal Td vaccine. Due on due Goal Diet education completed Goal FIT. Due on due Goal Td vaccine. Due on due Goal Urine microalbumin. Due on A due Goal Hep C Ab. Due on due Goal Hepatitis C screening. Due o n due Goal Hep B (). Due on due Goal Unhealthy drug use screening . Due on due Goal TB Risk Assessment. Due on due Goal GFR. Due on due Goal Dental exam. Due on due Goal Hemoglobin A1C. Due on due Goal Dilated eye exam. Due on Nov due Goal Depression screening. Due on due Goal Influenza vaccine. Due on Au due Goal Health Literacy Assessment d ue Goal CPE. Due on due Goal ASCVD 10 year risk. Due on A due Goal Diabetes screening. Due on due Goal Foot exam. Due on due Goal Pneumococcal vaccine. Due on due Goal Shingrix (). Due on due Goal Tdap due Goal Foot exam. Due on due Goal Tdap due Goal Hepatitis C screening. Due o n due Goal Hemoglobin A1C. Due on due Goal Pneumococcal vaccine. Due on due Goal Td vaccine. Due on due Goal Hep B (). Due on due Goal Depression screening. Due on due Goal FIT. Due on due Goal Urine microalbumin. Due on due Goal CPE. Due on due Goal TB Risk Assessment. Due on due Goal Unhealthy drug use screening . Due on due Goal Diabetes screening. Due on due Goal Dental exam. Due on due Goal GFR. Due on due Goal Influenza vaccine. Due on due Goal Shingrix (). Due on due Goal Hep C Ab. Due on due Goal Health Literacy Assessment d ue Goal Dilated eye exam. Due on Oct due Goal ASCVD 10 year risk. Due on due Goal CPE. Due on due Goal Dilated eye exam. Due on Oct due Goal GFR. Due on due Goal FIT. Due on due Goal Foot exam. Due on due Goal Dental exam. Due on due Goal Hepatitis C screening. Due o n due Goal Depression screening. Due on due Goal Hep B (). Due on due Goal Unhealthy drug use screening . Due on due Goal Shingrix (). Due on due Goal Pneumococcal vaccine. Due on due Goal Diabetes screening. Due on due Goal Influenza vaccine. Due on due Goal Urine microalbumin. Due on due Goal Td vaccine. Due on due Goal Hemoglobin A1C. Due on due Goal Health Literacy Assessment d ue Goal TB Risk Assessment. Due on due Goal ASCVD 10 year risk. Due on due Goal Tdap due Goal Hep C Ab. Due on due Goal Colonoscopy. Due on due Goal Influenza vaccine. Due on due Goal Health Literacy Assessment d ue Goal Hep B (). Due on due Goal Dilated eye exam. Due on Oct due Goal Hep C Ab. Due on due Goal Urine microalbumin. Due on due Goal Shingrix (). Due on due Goal ASCVD 10 year risk. Due on due Goal CPE. Due on due Goal Hepatitis C screening. Due o n due Goal Unhealthy drug use screening . Due on due Goal Td vaccine. Due on due Goal Depression screening. Due on due Goal Hemoglobin A1C. Due on due Goal Foot exam. Due on due Goal Diabetes screening. Due on due Goal GFR. Due on due Goal TB Risk Assessment. Due on due Goal Dental exam. Due on due Goal Pneumococcal vaccine. Due on due Goal Tdap due Goal Hemoglobin A1C. Due on due Goal Diabetes screening. Due on due Goal Depression screening. Due on due Goal CPE. Due on due Goal Shingrix (). Due on due Goal Dental exam. Due on due Goal Hepatitis C screening. Due o n due Goal Pneumococcal vaccine. Due on due Goal GFR. Due on due Goal ASCVD 10 year risk. Due on due Goal Health Literacy Assessment d ue Goal Influenza vaccine. Due on due Goal Dilated eye exam. Due on August due Goal Unhealthy drug use screening . Due on due Goal Hep B (). Due on due Goal Tdap due Goal Foot exam. Due on due Goal TB Risk Assessment. Due on due Goal Urine microalbumin. Due on due Goal Colonoscopy. Due on due Goal Hep C Ab. Due on due Goal Td vaccine. Due on due Goal Health Literacy Assessment d ue Goal Urine microalbumin. Due on due Goal CPE. Due on due Goal Dilated eye exam. Due on August due Goal Hep C Ab. Due on due Goal Influenza vaccine. Due on due Goal Unhealthy drug use screening . Due on due Goal Dental exam. Due on due Goal ASCVD 10 year risk. Due on due Goal Hep B (). Due on due Goal Shingrix (). Due on due Goal Diabetes screening. Due on due Goal Foot exam. Due on due Goal Tdap due Goal Hepatitis C screening. Due o n due Goal Td vaccine. Due on due Goal Pneumococcal vaccine. Due on due Goal Hemoglobin A1C. Due on due Goal GFR. Due on due Goal TB Risk Assessment. Due on due Goal Depression screening. Due on due Goal Colonoscopy. Due on due Goal Diet education completed Goal Shingrix (). Due on due Goal Tdap due Goal Colonoscopy. Due on due Goal Td vaccine. Due on due Goal Foot exam. Due on due Goal GFR. Due on due Goal Unhealthy drug use screening . Due on due Goal Influenza vaccine. Due on due Goal Dilated eye exam. Due on August due Goal ASCVD 10 year risk. Due on due Goal Urine microalbumin. Due on due Goal Hepatitis C screening. Due o n due Goal Depression screening. Due on due Goal Pneumococcal vaccine. Due on due Goal Diabetes screening. Due on due Goal Health Literacy Assessment d ue Goal Hep C Ab. Due on due Goal Hemoglobin A1C. Due on due Goal CPE. Due on due Goal Hep B (). Due on due Goal Dental exam. Due on due Goal TB Risk Assessment. Due on due Goal Diabetes screening. Due on due Goal Colonoscopy. Due on due Goal Urine microalbumin. Due on due Goal Foot exam. Due on due Goal Depression screening. Due on due Goal Pneumococcal vaccine. Due on due Goal Health Literacy Assessment d ue Goal Hep B (). Due on due Goal Td vaccine. Due on due Goal Dilated eye exam. Due on August due Goal Unhealthy drug use screening . Due on due Goal Influenza vaccine. Due on due Goal Shingrix (). Due on due Goal GFR. Due on due Goal Hep C Ab. Due on due Goal Tdap due Goal TB Risk Assessment. Due on due Goal Hepatitis C screening. Due o n due Goal CPE. Due on due Goal Dental exam. Due on due Goal Hemoglobin A1C. Due on due Goal ASCVD 10 year risk. Due on M due Goal Unhealthy drug use screening . Due on due Goal Health Literacy Assessment d ue Goal Pneumococcal vaccine. Due on due Goal Dilated eye exam. Due on Jul due Goal ASCVD 10 year risk. Due on A due Goal Dental exam. Due on due Goal GFR. Due on due Goal CPE. Due on due Goal Influenza vaccine. Due on Ap due Goal Shingrix (). Due on due Goal Depression screening. Due on due Goal Foot exam. Due on due Goal Urine microalbumin. Due on A due Goal Hep B (). Due on due Goal Hep C Ab. Due on due Goal Hemoglobin A1C. Due on due Goal TB Risk Assessment. Due on due Goal Tdap due Goal Td vaccine. Due on due Goal Hepatitis C screening. Due o n due Goal Colonoscopy. Due on due Goal Diabetes screening. Due on due Goal Diabetes screening. Due on due Goal Hepatitis C screening. Due o n due Goal TB Risk Assessment. Due on due Goal Shingrix (). Due on due Goal Unhealthy drug use screening . Due on due Goal Foot exam. Due on due Goal Pneumococcal vaccine. Due on due Goal Hep B (). Due on due Goal Colonoscopy. Due on due Goal GFR. Due on due Goal Dental exam. Due on due Goal Dilated eye exam. Due on Jun due Goal Hemoglobin A1C. Due on due Goal ASCVD 10 year risk. Due on due Goal Urine microalbumin. Due on due Goal CPE. Due on due Goal Td vaccine. Due on due Goal Influenza vaccine. Due on Pa due Goal Health Literacy Assessment d ue Goal Tdap due Goal Hep C Ab. Due on due Goal Depression screening. Due on due Goal Unhealthy drug use screening . Due on due Goal Foot exam. Due on due Goal Diabetes screening. Due on due Goal Pneumococcal vaccine. Due on due Goal Tdap due Goal Health Literacy Assessment d ue Goal Hepatitis C screening. Due o n due Goal Influenza vaccine. Due on Pa due Goal ASCVD 10 year risk. Due on due Goal Hemoglobin A1C. Due on due Goal Shingrix (). Due on due Goal Dental exam. Due on due Goal GFR. Due on due Goal Hep C Ab. Due on due Goal Urine microalbumin. Due on due Goal Dilated eye exam. Due on Jun due Goal CPE. Due on due Goal TB Risk Assessment. Due on due Goal Depression screening. Due on due Goal Hep B (). Due on due Goal Td vaccine. Due on due Goal Colonoscopy. Due on due Goal Hep B (). Due on due Goal Urine microalbumin. Due on due Goal ASCVD 10 year risk. Due on due Goal Hemoglobin A1C. Due on due Goal Dilated eye exam. Due on Jun due Goal GFR. Due on due Goal Foot exam. Due on due Goal Dental exam. Due on due Goal Health Literacy Assessment. Due on due Goal CPE. Due on due Goal Unhealthy drug use screening . Due on due Goal Colonoscopy. Due on due Goal Tdap due Goal Diabetes screening. Due on due Goal Depression screening. Due on due Goal TB Risk Assessment. Due on due Goal Influenza vaccine. Due on Pa due Goal Hepatitis C screening. Due o n due Goal Shingrix (). Due on due Goal FIT. Due on due Goal Pneumococcal vaccine. Due on due Goal Td vaccine. Due on due Goal Hep C Ab. Due on due Referral Ordered: Orthopedics (related to Tear of medial meniscus of left knee, current, unspecified tear type, initial encounter) ordered Referral Ordered: [facility] FM Mail Censor (related to Type 2 diabetes mellitus without complications) ordered Referral Ordered: Ophthalmology (related to Cataract cortical, senile, unspecified laterality) ordered Referral Ordered: Referrals: Ophthalmology. Evaluate and treat ordered Referral Ordered: [facility] Nutrition (related to Type 2 diabetes mellitus with hyperlipidemia) ordered Referral Ordered: * [facility] Clinical Pharmacist (related to Type 2 diabetes mellitus with hyperlipidemia) ordered Referral Ordered: Physical Therapy (related to Pain, joint, knee, left) ordered Referral Ordered: MRI LE Joint w/o dye Left knee ordered Appointment ASHLEY HERRERA BOOKED Appointment ASHLEY HERRERA BOOKED Appointment ASHLEY HERRERA BOOKED History Of Present Illness Encounter Date Complaint History Of Prese nt Illness Retinal Screen Results Patient w as educated on diabetic retinopathy and the importance to have a yearly retinal screen and/or ophthalmology visit. Patient was also educated on the importance to have glucose control. Discussed retinal process and answered patient's questions. Patient made aware he will not receive phone call if report comes back normal. If retinal is unable to be viewed or if report comes back abnormal a referral will be processed and the patient will receive referral by mail to Optometry/Ophthalmology. Photos taken and uploaded to [employer] for review.Last Retinal: Pt reported that he had bilateral cataracts and he had surgery to remove them last year in [place]. Pt reports that he has not seen an [employer] [facility] in the [facility]. DM: Pt presents with a history of approximately 6yrs with DM. Insulin: Pt reports that he started using insulin last year. Family Hx of Glaucoma: Pt is not sure if he has a family history of Glaucoma.Last A1C: [id number] advised to contact [facility] for any further questions and/or concerns.[facility]. Discussed proper foot care and maintenance with pt. Pt verbalized understanding. Educated pt to check feet periodically, keep skin dry, apply moisturizing lotion for dryness, check often for blisters, calluses, cuts or sores, see a doctor if you notice any of these, and keep glucose in control to prevent Diabetic Neuropathy. Monofilament Exam results: NORMAL Comments: Pt reports no complaints. [facility] Blood Glucose Readings F/U Reaso n for Visit: Blood Glucose Readings F/U Patient came in today for a Blood Glucose Readings F/U appt. Patient brought FreeStyle Magdi 2 [place]. The following BG reading averages were obtained from the patient's FreeStyle Magdi 2 reader:Last 14 days Average: [id number]: 1746am-12pm: [id number]: 2056pm-12am: 191Last 7 days Average:12am-6am: 1166am-12pm: [id number]: 1456pm-12am: 230Is the patient taking diabetic meds as prescribed?: YESPt reported that he did restart Ozempic and tomorrow(07/23/24) will be his third injection.Pt reports taking 2 tablets of Metformin BID. Pt reports that he injects 62 units every bedtime of Semeglee. Pt reports that he injects 15 units of Novolog BID before meals. Any episodes of hypoglycemia within the last two months or since their previous visit? NOLast A1C results and date drawn: [id number] patient on goals for A1c <7 in order to prevent DM complications. Nutrition: Discussed recommended carb. portions. Practice portion control, reduce fat intake and eat more veggies. Eat smaller more frequent meals Pt made SMG goal to decrease carbs including sweet bread and tortillas and increase vegetable intake. Physical Activity: Recommended pt to exercise 5x/ week for at least 30 mins each time. Comments: Pt reported that he exercises twice a week for one hour. Pt made SMG to increase exercise to 3x/week. Reminded pt of upcoming Clinical Pharmacist appt. Pt verbalized understanding. [employer] [facility] T2DM Patient location : home Provider location: [facility] Visit Method- telephone/telehealth visit: Patient Preference Patient's name and were verified Patient consented verbally to the virtual visit. Patient was informed that they have the right to in-person services; virtual visit is voluntary; transportation is available for in-person visits; there are limitations to virtual visits. Follow-up visit RT T2DM. Pt reports continues to have 2 meals/day. Discussed recent lab results A1C increased to 10.2. Pt states went on vacation for 2 weeks and forgot all meds. Discussed importance of medication adherence. Pt shares has vegetables 2x/wk. Pt reports continues to walk 1 hr 2x/wk. Pt shares has knee pain. Recommend pt walk 30 mins 2x/day on weekends. Reviewed importance of exercise, plate method, food groups. SMBG- fastinPrevious visit RT T2DM mgmt. Pt reports taking snacks to work now. Pt shares snacks are fruits. Pt reports still having 2 meals/day. Reviewed importance of 3 meals/day 2-3 snacks. Discussed snacks that are room temp. Reviewed plate method, portion sizes. Pt shares no longer taking glipizide. Now taking ozempic. Pt shares feels ozempic is working. Pt shares drinks 1-2 bottle norris/day. Discussed importance of water. Pt shares was having coffee and sweet bread for breakfast. Discussed diabetes friendly breakfast ideas. Pt shares wakes up at 5 AM for work and arrives home at 9PM. Discussed appropriate meal patterns for pt's work schedule. Pt reports continues to have 2 meals/day. Pt continues taking ozempic. Pt denied nausea, vomiting, headaches. Pt reports has veg 3x/wk. Pt shares walks 1 hr on weekends. Pt reports has not reduced CHO portions of 3-4 to 1-2. Discussed room temp snacks to take to work. Reviewed importance on 3 meals/day. Discussed recent lab results. Kudos on reducing A1C to 8.4. Discussed methods to reduce A1c. Reviewed importance of pairing CHO with protein/fat/veg. no weight taken per phone visit. SMBG- fastin- post prandial: 189 Pt goals: - will pack snacks for work - increase veg intake to daily - reduce CHO in meals from 3-4 servings to 1-2 servings - pair Protein/fat/veg with CHO Significant Meds/Supp: metformin, ozempic 0.5 mg, Novolog, SemgleePhysical Activity: noneFood Allergies/Intolerance: NKFAFood Recall: B - 7 AM; sweet bread, coffee w/ creamerL - 12 PM; hamburger with lettuce, tomato, onion; small fries, coke zero D - 9 PM; tuna salad (lettuce, tomato, mayonnaise), 4 tostadasPrevious Food Recall:B - sweet bread, coffee w/ creamerL - 12 PM; beef, rice D - chicken stew (carrots, potato, squash, chayoteFluids: 5-6 (16 oz)Bowel Movements: RegularLabs ( 3/22/25 ): Chol: 120 ; HDL: 55 ; LDL: 51 ; TGs: 67 ; Glu: 196 ; A1C: 10.2(02/27/24): Chol: 130 ; HDL: 64 ; LDL: 52 ; TGs: 64 ; Glu: 166 ; A1C: 8.4 ( 10/10/23 ): Chol: 137 ; HDL: 59 ; LDL: 61 ; TGs: 87 ; A1C: 9.9 ( 06/27/23 ): Chol: 126 ; HDL: 52 ; LDL: 58 ; TGs: 81 ; A1C: 10 ; Vit. D: 31 Anthropometrics: 52 y/o M Ht: 5' 4 IBW: 130 #; CBW: 211.7#; BMI: 36Changes in weight: 2.3# weight gain since last RD visit 09/02/23; 209.4#Estimated Nutrition Needs: 2,375 - 2,849 kcal/dayCalorie level ranges: Males 9553-5997 calories*Calorie needs vary based on several factors-age, sex, height, weight and physical activity level Protein Males 52-56 grams daily*Protein needs vary based on several factors-age, sex, height, weight and physical activity level Fluid [id number] or 8- 12 cups of 8oz daily Fiber Male 28-34 grams daily Nutrition Diagnosis:1.Problem: Obesity RT excess intake of calories AEB BMI>30- Ongoing 2. Problem: Altered nut. related lab values (high A1C) RT non-adherence to specific diet AEB pt's comment inappropriate intake of foods saturated fat, CHO- Not Improving: A1c currently 10.2 (previously 8.4) Intervention: -Discussed lab results -Reviewed food groups, portion sizes, and plate method -Healthy snacks: fruits, vegetables, nuts, string cheese -Incorporating physical activity to weekly routine-1 hr-Limiting refined/processed carbohydrates, especially sugar, sweets, and sugar sweetened beverages 1000 Caloric Pattern - Recommended servings based on [employer]ime[employer]Tonicmyplate.gov USDA Vegetables: 3 cups/day. Bread, cereal and starches: 7 ounces/day. Protein & other meats: 6 ounces/day. Fruit 2 cups/day Dairy: 3 cups/day. 2400 Caloric Needs- Recommended servings based on Choosemyplate.gov USDA Vegetables: 3 1/2 cups/day. Bread, cereal and starches: 9 ounces/day. Protein & other meats: 6 1/2 ounces/day. Fruit 2 cups/day Dairy: 3 cups/day. 2800 Caloric NeedsHandouts: plate method, food groups, portion sizesMonitoring: - A1C labs - weight F/U in 3-4 monthsEducation provided considers health literacy level. Patient states/demonstrates understanding of assessment, plan & health education provided. Blood Glucose Readings F/U Reaso n for Visit: Blood Glucose Readings F/U Patient came in today for a Blood Glucose Readings F/U appt. Patient brought FreeStyle Magdi 2 [place] to [facility] appt. The following BG reading averages were obtained from the patient's FreeStyle Magdi 2 [place]:Last 14 day and last 7 day Average: [id number]: 1826am-12pm: 12pm-6pm: 3476pm-12am: 292Last 30 days Average: [id number]: 2876am-12pm:[id number]: 3636pm-12am: 334Is the patient taking diabetic meds as prescribed?: NOPt stated that he did not take his medications for approximately 3 weeks because he left on vacation and forgot all his medications. Pt reported that he restarted all his medications except his Ozempic approximately on 06/30/24.Pt stated that he was concerned about getting side effects from Ozempic 2mg because he has not injected Ozempic 2mg in approximately 4 weeks. Spoke with RN and regarding patient's concerns. Dr. Stephens indicated that it is okay for pt to restart Ozempic 2mg after not injecting for 4 weeks. Informed pt to restart Ozempic 2mg once weekly. Pt verbalized understanding. Pt reports that he injects 15 units of Novolog before his lunch and dinner. Pt reports that he injects 62 units of Semglee every evening.Pt reports that he takes 2 tablets of Metformin 500mg BID. Any episodes of hypoglycemia within the last two months or since their previous visit? NOComments: Educated pt on hypoglycemia prevention & demonstrated the rule of 15. Scheduled BG readings F/U with [facility].[employer] [facility] DM type 2 Follow-up appoin tment with clinical pharmacist for the management of DM type 2. SMBG levels: FS Magdi 2 (didn't bring with him)14 day avg: n/y58ig-6eu: n/l5wf-47wt: n/q26vd-3pz: n/m9jz-30mb: n/a Current DM Medications:Metformin ER 1000mg BIDSemglee 62 units at bedtimeNovolog 15 units before lunchOzempic 2 mg/week Current Cholesterol Medications:Rosuvastatin 10mg dailyPreviously tried medications & reasons for d/c:Atenolol, glipizide, piogltazone, Trulicity 1.5mg/weekFamily History? 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 SMBG levels: SYMONE Magdi 2 (doesnt have with him)14 day [id number]: 1326am-12pm: [id number]: 2286pm-12am: 230 Current DM Medications:Metformin ER 1000mg BIDSemglee 62 units at bedtimeNovolog 10 units before lunchOzempic 2 mg/week Current Cholesterol Medications:Rosuvastatin 10mg dailyPreviously tried medications & reasons for d/c:Atenolol, glipizide, piogltazone, Trulicity 1.5mg/weekFamily History? 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 (Patient's name and were verified.)Patient location: [facility] location: [facility] for telephone visit: Patient PreferencePatient consent: patient verbally consented for telephone visitOther staff involved in visit: Christelle Leiva ([employer] [facility] [employer]) for Cameroonian interpretation. DM type 2 Follow-up appoin hor[place] with clinical pharmacist for the management of DM type 2. SMBG levels: SYMONE [place] 2 (doesnt have with him)14 day avg: [id number]: [id number]-54ar: so45yk-5qz: ib1vu-04fs: naself-reports FBG 90-120 but PPGs can go up to 280s Current DM Medications:Metformin ER 1000mg BIDSemglee 62 units at bedtimeOzempic 2 mg/week Current Cholesterol Medications:Rosuvastatin 10mg dailyPreviously tried medications & reasons for d/c:Atenolol, glipizide, piogltazone, Trulicity 1.5mg/weekFamily History? 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 (Patient's name and were verified.)[facility] location[facility] homeReason for telephone visit: Patient PreferencePatient consent: patient verbally consented for telephone visitOther staff involved in visit: Christelle Leiva ([facility]) for Cameroonian interpretation. T2DM Patient location : [place] Provider location: [facility] Visit Method- telephone/telehealth visit: Patient Preference Patient's name and were verified Patient consented verbally to the virtual visit. Patient was informed that they have the right to in-person services; virtual visit is voluntary; transportation is available for in-person visits; there are limitations to virtual visits. Follow-up visit RT T2DM. Pt reports continues to have 2 meals/day. Pt continues taking ozempic. Pt denied nausea, vomiting, headaches. Pt reports has veg 3x/wk. Pt shares walks 1 hr on weekends. Pt reports has not reduced CHO portions of 3-4 to 1-2. Discussed room temp snacks to take to work. Reviewed importance on 3 meals/day. Discussed recent lab results. Kudos on reducing A1C to 8.4. Discussed methods to reduce A1c. Reviewed importance of pairing CHO with protein/fat/veg. no weight taken per phone visit. SMBG- post prandial: 189 Initial visit - DX=T2DM; Pt reports consuming 1-2 meals/day. 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 Discussed importance of having consistent meals. Pt reports sometimes misses lunch and breakfast. Pt shares would like a CGM as opposed to finger prick glucose monitor due to fingers feeling numb and hard. Pt states works 5x/wk. Weekends, pt has 3 meals/day. Discussed taking snacks for work. Pt reports taking snacks to work now. Pt shares snacks are fruits. Pt reports still having 2 meals/day. Reviewed importance of 3 meals/day 2-3 snacks. Discussed snacks that are room temp. Reviewed plate method, portion sizes. Pt shares no longer taking glipizide. Now taking ozempic. Pt shares feels ozempic is working. Pt shares drinks 1-2 bottle norris/day. Discussed importance of water. Pt shares was having coffee and sweet bread for breakfast. Discussed diabetes friendly breakfast ideas. Pt shares wakes up at 5 AM for work and arrives home at 9PM. Discussed appropriate meal patterns for pt's work schedule. SMBG- fastinPt goals: - will pack snacks for work - increase veg intake to daily - reduce CHO in meals from 3-4 servings to 1-2 servings - pair Protein/fat/veg with CHO Significant Meds/Supp: metformin, ozempic 0.5 mgPhysical Activity: noneFood Allergies/Intolerance: NKFAFood Recall: B - sweet bread, coffee w/ creamerL - 12 PM; beef, rice D - chicken stew (carrots, potato, squash, chayote)Previous Food Recall:B - coffee w/ creamer, pear/peach L - Burrito: asada, rice, beansD - skipS - skipFluids: 5-6 (16 oz)Bowel Movements: RegularLabs (02/27/24): Chol: 130 ; HDL: 64 ; LDL: 52 ; TGs: 64 ; Glu: 166 ; A1C: 8.4 ( 10/10/23 ): Chol: 137 ; HDL: 59 ; LDL: 61 ; TGs: 87 ; A1C: 9.9 ( 06/27/23 ): Chol: 126 ; HDL: 52 ; LDL: 58 ; TGs: 81 ; A1C: 10 ; Vit. D: 31 Anthropometrics: 52 y/o M Ht: 5' 4 IBW: 130 #; CBW: 211.7#; BMI: 36Changes in weight: 2.3# weight gain since last RD visit 09/02/23; 209.4#Estimated Nutrition Needs: 2,375 - 2,849 kcal/dayCalorie level ranges: Males 7045-3040 calories*Calorie needs vary based on several factors-age, sex, height, weight and physical activity level Protein Males 52-56 grams daily*Protein needs vary based on several factors-age, sex, height, weight and physical activity level Fluid wtppx-3-5Ifjtnl or 8- 12 cups of 8oz daily Fiber Male 28-34 grams daily Nutrition Diagnosis:1.Problem: Obesity RT excess intake of calories AEB BMI>30- Ongoing 2. Problem: Altered nut. related lab values (high A1C) RT non-adherence to specific diet AEB pt's comment inappropriate intake of foods saturated fat, CHO- Improving: A1c currently 8.4 (previously 9.9 on 10/09 ; 10 on 06/26) Intervention: -Discussed lab results -Reviewed food groups, portion sizes, and plate method -Healthy snacks: fruits, vegetables, nuts, string cheese -Incorporating physical activity to weekly routine-1 hr-Limiting refined/processed carbohydrates, especially sugar, sweets, and sugar sweetened beverages 1000 Caloric Pattern - Recommended servings based on Choosemyplate.gov USDA Vegetables: 3 cups/day. Bread, cereal and starches: 7 ounces/day. Protein & other meats: 6 ounces/day. Fruit 2 cups/day Dairy: 3 cups/day. 2400 Caloric Needs- Recommended servings based on Choosemyplate.gov USDA Vegetables: 3 1/2 cups/day. Bread, cereal and starches: 9 ounces/day. Protein & other meats: 6 1/2 ounces/day. Fruit 2 cups/day Dairy: 3 cups/day. 2800 Caloric NeedsHandouts: plate method, food groups, portion sizesMonitoring: - A1C labs - weight F/U in 3 monthsEducation provided considers health literacy level. Patient states/demonstrates understanding of assessment, plan & health education provided. Episodic Telephone Visit for follow up on labs vianney FUNEZ Verbal consent obtained for telephone visit. Patient was informed that they have the right to in-person services; virtual visit is voluntary; transportation is available for in-person visits; there are limitations to virtual visits.Location of patient: Patient's homeLocation of physician: [facility]. diabetes Managing with: O ral medications. Pertinent negatives include blurred vision, burning of extremities, chest pain, constant hunger, dental disease, diarrhea, dysesthesias, dyspnea, erectile dysfunction, foot ulcers, frequent infections, urinary frequency, heartburn, hypoglycemic episodes, impotence, increased fatigue, nocturia, polydipsia, slow healing wounds / sores, weight gain and weight loss. DM type 2 Follow-up appoin tment with clinical pharmacist for the management of DM type 2. SMBG levels: FS Magdi 2 (doesnt have with him)14 day [id number]: 1696am-12pm: [id number]: 1956pm-12am: 193 Current DM Medications:Metformin ER 1000mg BIDSemglee 55 units at bedtimeOzempic 1mg/week Current Cholesterol Medications:Rosuvastatin 10mg dailyPreviously tried medications & reasons for d/c:Atenolol, glipizide, piogltazone, Trulicity 1.5mg/weekFamily History? 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 (Patient's name and were verified.)[facility] location: homeReason for telephone visit: Patient PreferencePatient consent: patient verbally consented for telephone visitOther staff involved in visit: Christelle Leiva ([employer]) for Cameroonian interpretation. DM type 2 Follow-up appoin tment with clinical pharmacist for the management of DM type 2. SMBG levels: SYMONE [place] 2 (doesnt have with him)14 day avg: n/n05aq-8km: n/a8xq-13oa: n/y14uf-6ij: n/o8hh-44il: n/a Self reports FBGs can still go to 110-200sCurrent DM Medications:Metformin ER 1000mg BIDSemglee 50 units at bedtimeOzempic 0.5mg/week has not started 1mg/weekCurrent Cholesterol Medications:Rosuvastatin 10mg dailyPreviously tried medications & reasons for d/c:Atenolol, glipizide, piogltazone, Trulicity 1.5mg/weekFamily History? 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 (Patient's name and were verified.)Patient location: [facility] location: [facility] for telephone visit: Patient PreferencePatient consent: patient verbally consented for telephone visitOther staff involved in visit: Christelle Leiva ([facility] [employer]) for Cameroonian interpretation. DM type 2 Follow-up appoin [facility] with clinical pharmacist for the management of DM type 2. SMBG levels: SYMONE [place] 214 day [id number]: 1686am-12pm: [id number]: 2516pm-12am: 238# of hypoglycemic episodes:Current DM Medications:Metformin ER 1000mg BIDSemglee 42 units at bedtimeOzempic 0.5mg/week Current Cholesterol Medications:Rosuvastatin 10mg dailyPreviously tried medications & reasons for d/c:Atenolol, glipizide, piogltazone, Trulicity 1.5mg/weekFamily History? 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 (Patient's name and were verified.)Patient location: [facility] location: [facility] for telephone visit: Patient PreferencePatient consent: patient verbally consented for telephone visitOther staff involved in visit: Christelle Leiva ([facility]) for Cam[place]onian interpretation. t2dm Follow-up visit RT T2DM. Pt reports taking snacks to work now. Pt shares snacks are fruits. Pt reports still having 2 meals/day. Reviewed importance of 3 meals/day 2-3 snacks. Discussed snacks that are room temp. Reviewed plate method, portion sizes. Pt shares no longer taking glipizide. Now taking ozempic. Pt shares feels ozempic is working. Pt shares drinks 1-2 bottle norris/day. Discussed importance of water. Pt shares was having coffee and sweet bread for breakfast. Discussed diabetes friendly breakfast ideas. Pt shares wakes up at 5 AM for work and arrives home at 9PM. Discussed appropriate meal patterns for pt's work schedule. SMBG- fastinInitial visit - DX=T2DM; Pt reports consuming 1-2 meals/day. 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 Discussed importance of having consistent meals. Pt reports sometimes misses lunch and breakfast. Pt shares would like a CGM as opposed to finger prick glucose monitor due to fingers feeling numb and hard. Pt states works 5x/wk. Weekends, pt has 3 meals/day. Discussed taking snacks for work. Pt goals: - will pack snacks for work - increase veg intake - reduce CHO in meals from 3-4 servings to 1-2 servings - pair Protein/fat/veg with CHO Significant Meds/Supp: metformin, ozempic 0.5 mgPhysical Activity: noneFood Allergies/Intolerance: NKFAFood Recall:B - coffee w/ creamer, pear/peach L - Burrito: asada, rice, beansD - skipS - skipFluids: 5-6 (16 oz)Bowel Movements: RegularLabs ( 10/10/23 ): Chol: 137 ; HDL: 59 ; LDL: 61 ; TGs: 87 ; A1C: 9.9 ( 06/27/23 ): Chol: 126 ; HDL: 52 ; LDL: 58 ; TGs: 81 ; A1C: 10 ; Vit. D: 31 Anthropometrics: 52 y/o M Ht: 5' 4 IBW: 130 #; CBW: 211.7#; BMI: 36Changes in weight: 2.3# weight gain since last RD visit 09/02/23; 209.4#Estimated Nutrition Needs: 2,375 - 2,849 kcal/dayCalorie level ranges: Males 5382-6457 calories*Calorie needs vary based on several factors-age, sex, height, weight and physical activity level Protein Males 52-56 grams daily*Protein needs vary based on several factors-age, sex, height, weight and physical activity level Fluid jnurc-5-9Tbfwxh or 8- 12 cups of 8oz daily Fiber Male 28-34 grams daily Intervention: -Discussed lab results -Intro to food groups, portion sizes, and plate method -Healthy snacks: fruits, vegetables, nuts, string cheese -Incorporating physical activity to weekly routine-Limiting refined/processed carbohydrates, especially sugar, sweets, and sugar sweetened beverages 1000 Caloric Pattern - Recommended servings based on Lime&Tonicmyplate.gov USDA Vegetables: 3 cups/day. Bread, cereal and starches: 7 ounces/day. Protein & other meats: 6 ounces/day. Fruit 2 cups/day Dairy: 3 cups/day. 2400 Caloric Needs- Recommended servings based on Lime[employer]Tonicmyplate.gov USDA Vegetables: 3 1/2 cups/day. Bread, cereal and starches: 9 ounces/day. Protein & other meats: 6 1/2 ounces/day. Fruit 2 cups/day Dairy: 3 cups/day. 2800 Caloric Needs Nutrition Diagnosis:1.Problem: Obesity RT excess intake of calories AEB BMI>30- Ongoing 2. Problem: Altered nut. related lab values (high A1C) RT non-adherence to specific diet AEB pt's comment inappropriate intake of foods saturated fat, CHO- Ongoing: A1c currently 9.9 (previously 10)Handouts: plate method, food groups, portion sizesF/U in 3 monthsEducation provided considers health literacy level. Patient states/demonstrates understanding of assessment, plan & health education provided. DM type 2 Follow-up appoin [facility] with clinical pharmacist for the management of DM type 2. SMBG levels: (using FS Magdi 2 but doesn't have his reader to work)Fastin-150s but an go to the 200s.PPG: <278# of hypoglycemic episodes:Current DM Medications:Metformin ER 1000mg BIDSemglee 35 units at bedtimeOzempic 0.5mg/week Current Cholesterol Medications:Rosuvastatin 10mg dailyPreviously tried medications & reasons for d/c:Atenolol, glipizide, piogltazone, Trulicity 1.5mg/weekFamily History? 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 (Patient's name and were verified.)Patient location: [facility] location: [facility] for telephone visit: Patient PreferencePatient consent: patient verbally consented for telephone visitOther staff involved in visit: Christelle Leiva ([employer] [facility] [employer]) for Cameroonian interpretation. DM type 2 Follow-up appoin [facility] with clinical pharmacist for the management of DM type 2. SMBG levels: (FS magdi 2 picked up, hasn't started but will start this week)Fastin-220PPG: <240# of hypoglycemic episodes:Current DM Medications:Metformin ER 1000mg BIDTrulicity 1.5mg/weekSemglee 25 units at bedtime started 5 days ago (after labs)Current Cholesterol Medications:Rosuvastatin 10mg dailyPreviously tried medications & reasons for d/c:Atenolol, glipizide, piogltazoneFamily History? 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 (Patient's name and were verified.)[facility]: Patient PreferencePatient consent: patient verbally consented for telephone visitOther staff involved in visit: Christelle Leiva ([employer] [facility]) for Cameroonian interpretation. FreeStyle Magdi 2 Se nsor Teaching Reason for Visit: FreeStyle Magdi 2 Sensor and [place] Teaching Patient came in today for a FreeStyle Magdi 2 Sensor and [place] teaching appointment with [facility]. Patient brought in both FreeStyle Magdi 2 Sensor and reader. The patient was instructed to wash hands with soap and water or use hand ruling machine feeder before applying the FreeStyle Magdi 2 Sensor. The patient was instructed on how to properly use and apply FreeStyle Magdi 2 Sensor and [place]. Reviewed all parts with pt and helped set correct date and time. Pt instructed to only use back of arm to place sensor, clean area with alcohol wipe, how to prepare/ apply sensor, and how to initiate new sensor with reader by both verbal instruction and demonstration. Pt was able to verbalize understanding, and was able to apply and initiate sensor correctly in-office. Made aware he will need to wait 1 hr before checking blood sugar after each new sensor, and will need to replace his sensor every 2 weeks. Patient verbalized understanding.- [employer]-[facility] Insulin Teaching Reason for Visi t: Insulin Teaching Patient came in today for insulin pen teaching. Patient brought in Tresiba insulin pen for teaching. Reinforced medication compliance, by informing patient that per his provider's instructions he needs to inject 25 units of Tresiba at bedtime. Patient verbalized understanding. Pt was taught how to use insulin pen , and how to administer insulin by both verbal instruction and demonstration. Walked patient through each step without actually doing the steps at first. Pen must remain in the refrigerator at all times. Wash hands with water and soap; check expiration date; make sure you have a pen needle ready, sharps container and alcohol wipes. Check that insulin is clear and colorless and not cloudy, attach new needle; prime pen by turning dose selector to select 2 units and press and hold the dose button until the dose counter shows 0 . Make sure a drop of insulin appears. Select correct dose by turning the dose selector. Wipe site of injection with an alcohol wipe and let dry before injecting. Inject and press and hold the dose button, and after dose counter reaches 0 , slowly count to six. Patient was educated on the proper way to dispose of used needles. Provided patient with needle disposal flyer. Any episodes of hypoglycemia within the last two months or since their previous visit? NOComments: Educated pt on hypoglycemia prevention & demonstrated the rule of 15. Provided pt with new BG log and advised to bring during next visit with [facility], Clinical Pharmacist, and PCP. Scheduled blood glucose readings follow-up appointment with [facility]. [employer] [facility] Episodic Lab results. Karli martinez requesting cholesterol med- patient is out of meds. Shwetha. LVNTelephone visit is conducted per patient's preference. Patient is at home. Provider is in [facility]. Patient has been informed that there are limitations to telephone visits and they can make an in-person visit when desired. Patient verbally consents to the virtual visit. Interpretation language: CHINESE diabetes Managing with: O ral medications. Pertinent negatives include blurred vision, burning of extremities, chest pain, constant hunger, dental disease, diarrhea, dysesthesias, dyspnea, erectile dysfunction, foot ulcers, frequent infections, urinary frequency, heartburn, hypoglycemic episodes, impotence, increased fatigue, nocturia, polydipsia, slow healing wounds / sores, weight gain and weight loss. Additional information: 52yo M here for f/u DM. Saw diabetic specialist. did not start Insulin yet and has appointment for teaching scheduled.. DM type 2 Initial appointm ent with clinical pharmacist for the management of DM type 2. SMBG levels:Fastin-220PPG: <300# of hypoglycemic episodes:Current DM Medications:Metformin ER 1000mg BIDPiogltiazone 30mg dailyTrulicity 0.75mg/weekGlipidie ER 10mg BIDCurrent Cholesterol Medications:Rosuvastatin 10mg dailyPreviously tried medications & reasons for d/c:AtenololFamily History? 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 (Patient's name and were verified.)Patient location: homeProvider [facility]: [facility]Reason for telephone visit: Patient PreferencePatient consent: patient verbally consented for telephone visitOther staff involved in visit: Christelle Leiva ([employer] [facility]) for Cameroonian interpretation. DM mgmt Patient location : home Provider location: [facility] Visit Method- telephone/telehealth visit: Patient Preference Patient's name and were verified Patient consented verbally to the virtual visit. Patient was informed that they have the right to in-person services; virtual visit is voluntary; transportation is available for in-person visits; there are limitations to virtual visits. Initial visit - DX= Pt reports consuming 1-2 meals/day. 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 Discussed importance of having consistent meals. Pt reports sometimes misses lunch and breakfast. Pt shares would like a CGM as opposed to finger prick glucose monitor due to fingers feeling numb and hard. Pt states works 5x/wk. Weekends, pt has 3 meals/day. Discussed taking snacks for work. Pt goals: - will pack snacks for work Significant Meds/Supp: metformin, glipizide pioglitazonePhysical Activity: noneFood Allergies/Intolerance: NKFAFood Recall:B - coffee with breadL - hamburgerD - does not rememberS - Fluids: 5-6 (16 oz)Bowel Movements: RegularLabs ( 06/27/23 ): Chol: 126 ; HDL: 52 ; LDL: 58 ; TGs: 81 ; A1C: 10 ; Vit. D: 31 Anthropometrics: 52 y/o M Ht: 5' 4 IBW: 130 #; CBW: 209.4 #; BMI: 36Changes in weight: weight gain/lost since last MD visit Estimated Nutrition Needs: 2,375 - 2,849 kcal/dayCalorie level ranges: Males 2616-3067 calories*Calorie needs vary based on several factors-age, sex, height, weight and physical activity level Protein Males 52-56 grams daily*Protein needs vary based on several factors-age, sex, height, weight and physical activity level Fluid oivyw-2-7Loedje or 8- 12 cups of 8oz daily Fiber Male 28-34 grams daily Intervention: -Discussed lab results -Intro to food groups, portion sizes, and plate method -Healthy snacks: fruits, vegetables, nuts, string cheese -Incorporating physical activity to weekly routine-Limiting refined/processed carbohydrates, especially sugar, sweets, and sugar sweetened beverages 1000 Caloric Pattern - Recommended servings based on [employer] Vegetables: 3 cups/day. Bread, cereal and starches: 7 ounces/day. Protein & other meats: 6 ounces/day. Fruit 2 cups/day Dairy: 3 cups/day. 2400 Caloric Needs- Recommended servings based on Yasmo.gov [place] [employer] Vegetables: 3 1/2 cups/day. Bread, cereal and starches: 9 ounces/day. Protein & other meats: 6 1/2 ounces/day. Fruit 2 cups/day Dairy: 3 cups/day. 2800 Caloric Needs Nutrition Diagnosis:1.Problem: Obesity RT excess intake of calories AEB BMI>302. Problem: Altered nut. related lab values (high A1C) RT non-adherence to specific diet AEB pt's comment inappropriate intake of foods saturated fat, CHOHandouts: plate method, food groups, portion sizesF/U in 3 monthsEducation provided considers health literacy level. Patient states/demonstrates understanding of assessment, plan & health education provided. Trulicity Teaching Reason for Vi sit: Trulicity TeachingPatient came in today for a Trulicity teaching. Patient bought Trulicity with him today for teaching. Explained to patient that Trulicity is not insulin, but it is a once a week injectable medication that will help him control his glucose levels along with diet, exercise and the other oral medications prescribed. Walked patient through each step without preparing pen first. Pen must remain in the refrigerator at all times. Wash hands with water and soap; check expiration date; make sure you have a sharps container; Make sure pen is locked; remove cap; unlock pen; place on skin; inject. . Asked patient if he would like to inject Trulicity right now. Patient denied and stated that he would inject tomorrow on 08/23/2023. Patient reported that he has not taken his Metformin in the past three days because he needs a refill. I spoke with patient's pharmacy and they informed me that the Metformin is not being covered by the patient's insurance. Spoke with RN on-site, and she sent the patient's PCP a medication refill request informing PCP that the patient's Metformin is not being covered by his insurance. RN informed me that the patient can go to his pharmacy in person and inform the Pharmacy staff that his PCP was sent a message informing him that the patient's Metformin is not being covered by his insurance, and the patient can purchase or ask the Pharmacy for a limited supply of his Metformin dosage. Patient was informed and he verbalized understanding. Any episodes of hypoglycemia within the last two months or since their previous visit? NO Comments: Educated pt on hypoglycemia prevention & demonstrated the rule of 15. Provided pt with new BG log and advised to bring during next visit Scheduled [facility] blood glucose readings F/USContreras [facility] Episodic Patient is here for mri results. Megan MIGUEL MA diabetes The problem is g etting worse. Patient is compliant with using medication, and follow-up. Managing with: Oral medications. Pertinent negatives include blurred vision, burning of extremities, chest pain, constant hunger, dental disease, diarrhea, dysesthesias, dyspnea, erectile dysfunction, foot ulcers, frequent infections, urinary frequency, heartburn, hypoglycemic episodes, impotence, increased fatigue, nocturia, polydipsia, slow healing wounds / sores, weight gain and weight loss. Additional information: 52yo M here for f/u labs and DM. Taking meds as prescribed.. Retinal Patient was educ ated on diabetic retinopathy and the importance to have a yearly retinal screen and/or ophthalmology visit. Patient was also educated on the importance to have glucose control. Discussed retinal process and answered patient's questions. Patient made aware he will not receive phone call if report comes back normal. If retinal is unable to be viewed or if report comes back abnormal a referral will be processed and the patient will receive referral by mail to Optometry/Ophthalmology. Photos taken and uploaded to [employer] for review.Last Retinal: Patient reported that he last saw a specialist on May-2023. Patient reported that he has cataracts in both eyes, but he states that the condition is worse in his left eye. DM: Patient reported that he has had DM for approximately 6 years. Insulin: NOFamily Hx of Glaucoma: NO Last A1C:ontinuance of care appointments were made including [employer].Patient advised to contact [facility] for any further questions and/or concerns.[employer] [facility] DM Education Reason for visit : DM Education Length of diagnosis: Patient reported that he has had DM for approximately 6 years. Educated pt about what diabetes is ,different types of DM; signs and symptoms; risk factors, prevention Reviewed complications Last A1C results and date drawn: June2023 Educated patient on goals for A1c <7 in order to prevent DM complications. Is the patient taking diabetic meds as prescribed?: Patient reported that he is taking diabetic medications as prescribed. Blood sugar ranges from glucometer or log: Patient reported that he currently is checking his blood glucose readings once or twice a week. Patient also reported that he is using a FreeStyle Lite glucometer, but he has very few teststrips remaining. INFORMATION TECHNOLOGY DATA ANALYST sent to PCP. Patient reported that his fasting blood glucose readings are approximately in the 240s.Patient reported that after eating lunch his blood glucose readings are approximately in the 280s.Any episodes of hypoglycemia within the last two months or since their previous visit? NOComments: Educated pt on hypoglycemia prevention & demonstrated the rule of 15. Provided pt with new BG log and advised to bring during next visit Nutrition: Reviewed MyPlate MethodDiscussed recommended carb. portions. Practice portion control, reduce fat intake and eat more veggies. Eat smaller more frequent meals Patient reported that he has stopped drinking soda. He stated that he usually has approximately 5 tortillas daily.Patient stated that he has a cup of coffee and bread in the morning for breakfast.Patient requested a referral with laborer plumbing, and the patient was scheduled an appointment with laborer plumbing. Physical Activity: Recommended patient to exercise 5x/ week for at least 30 mins each time. Patient reported that he currently does no physical activity due to his knee pain. Scheduled patient an appointment with laborer plumbing. Andreinajohanna [facility] knee pain It occurs consta ntly and is worsening. Location: left knee. The pain is dull. The pain is aggravated by bending, walking and standing. Pertinent negatives include bruising, crepitus, decreased mobility, difficulty initiating sleep, joint instability, joint tenderness, limping, locking, nocturnal awakening, nocturnal pain, numbness, popping, spasms, swelling, tingling in the arms, tingling in the legs and weakness. Additional information: went to , had normal left knee xray. pain still persists. not improved with NSAIDs or knee sleeve. diabetes The problem is s table. Managing with: Oral medications. Pertinent negatives include blurred vision, burning of extremities, chest pain, constant hunger, dental disease, diarrhea, dysesthesias, dyspnea, erectile dysfunction, foot ulcers, frequent infections, urinary frequency, heartburn, hypoglycemic episodes, impotence, increased fatigue, nocturia, polydipsia, slow healing wounds / sores, weight gain and weight loss. Additional information: 52yo M w/ pmh DM here to follow up of labs. preventive exam Episodic The symptoms are reported as being mild. The patient states the symptoms are acute. telephone Visit pt requesting refill on meds for dm vianney FUNEZ Verbal consent obtained for telephone visit. Patient was informed that they have the right to in-person services; virtual visit is voluntary; transportation is available for in-person visits; there are limitations to virtual visits.Location of patient: Patient's homeLocation of physician: [facility] here to establish care h/o dm , HTNmeds: Metformin 750mg po bidtenolol 25mg po Glipizide 10mg po bidPioglitazone 30mg po QDsurgery hernia repairfamily history: mother father : htn, dm hyperlipidemia Functional Status Date Functional Assessmen t No Information Instructions Date Instruction Additional Infor mation Education provided c onsiders health literacy level. Patient states/demonstrates understanding ofthe assessment, plan, and health education provided. Related to Type 2 diabetes mellitus without complications Exercise education Related to Ex ercise Counseling Diet education Related to Dieta ry Counseling and Surveillance Education provided c onsiders health literacy level. Patient states/demonstrates understanding ofthe assessment, plan, and health education provided. Related to Counseling, unspecified A blood glucose log and medication list were provided for the patient with specific instruction on how and when to take medications and check/log blood glucose. Instructed patient to bring back this log for every CMM visit. Discussed how to identify and treat low blood sugar (hypoglycemia). Lab results discussed with patient and all questions were answered. Medication therapy plan was extensively discussed including possible adverse drug reactions, drug interactions, and therapeutic effects. Education: Education provided considers health literacy level. Patient states/demonstrates understanding of the assessment, plan, and health education provided. Related to Type 2 diabetes mellitus without complications A blood glucose log and medication list were provided for the patient with specific instruction on how and when to take medications and check/log blood glucose. Instructed patient to bring back this log for every CMM visit. Discussed how to identify and treat low blood sugar (hypoglycemia). Lab results discussed with patient and all questions were answered. Medication therapy plan was extensively discussed including possible adverse drug reactions, drug interactions, and therapeutic effects. Education: Education provided considers health literacy level. Patient states/demonstrates understanding of the assessment, plan, and health education provided. Related to Type 2 diabetes mellitus without complications A blood glucose log and medication list were provided for the patient with specific instruction on how and when to take medications and check/log blood glucose. Instructed patient to bring back this log for every CMM visit. Discussed how to identify and treat low blood sugar (hypoglycemia). Lab results discussed with patient and all questions were answered. Medication therapy plan was extensively discussed including possible adverse drug reactions, drug interactions, and therapeutic effects. Education: Education provided considers health literacy level. Patient states/demonstrates understanding of the assessment, plan, and health education provided. Related to Type 2 diabetes mellitus without complications Exercise education Related to Ex ercise Counseling Diet education Related to Dieta ry Counseling and Surveillance A blood glucose log and medication list were provided for the patient with specific instruction on how and when to take medications and check/log blood glucose. Instructed patient to bring back this log for every CMM visit. Discussed how to identify and treat low blood sugar (hypoglycemia). Lab results discussed with patient and all questions were answered. Medication therapy plan was extensively discussed including possible adverse drug reactions, drug interactions, and therapeutic effects. Education: Education provided considers health literacy level. Patient states/demonstrates understanding of the assessment, plan, and health education provided. Related to Type 2 diabetes mellitus without complications A blood glucose log and medication list were provided for the patient with specific instruction on how and when to take medications and check/log blood glucose. Instructed patient to bring back this log for every CMM visit. Discussed how to identify and treat low blood sugar (hypoglycemia). Lab results discussed with patient and all questions were answered. Medication therapy plan was extensively discussed including possible adverse drug reactions, drug interactions, and therapeutic effects. Education: Education provided considers health literacy level. Patient states/demonstrates understanding of the assessment, plan, and health education provided. Related to Type 2 diabetes mellitus without complications A blood glucose log and medication list were provided for the patient with specific instruction on how and when to take medications and check/log blood glucose. Instructed patient to bring back this log for every CMM visit. Discussed how to identify and treat low blood sugar (hypoglycemia). Lab results discussed with patient and all questions were answered. Medication therapy plan was extensively discussed including possible adverse drug reactions, drug interactions, and therapeutic effects. Education: Education provided considers health literacy level. Patient states/demonstrates understanding of the assessment, plan, and health education provided. Related to Type 2 diabetes mellitus without complications A blood glucose log and medication list were provided for the patient with specific instruction on how and when to take medications and check/log blood glucose. Instructed patient to bring back this log for every CMM visit. Discussed how to identify and treat low blood sugar (hypoglycemia). Lab results discussed with patient and all questions were answered. Medication therapy plan was extensively discussed including possible adverse drug reactions, drug interactions, and therapeutic effects. Education: Education provided considers health literacy level. Patient states/demonstrates understanding of the assessment, plan, and health education provided. Related to Type 2 diabetes mellitus without complications Diet education Related to Dieta ry Counseling and Surveillance Exercise education Related to Ex ercise Counseling A blood glucose log and medication list were provided for the patient with specific instruction on how and when to take medications and check/log blood glucose. Instructed patient to bring back this log for every CMM visit. Discussed how to identify and treat low blood sugar (hypoglycemia). Lab results discussed with patient and all questions were answered. Medication therapy plan was extensively discussed including possible adverse drug reactions, drug interactions, and therapeutic effects. Education: Education provided considers health literacy level. Patient states/demonstrates understanding of the assessment, plan, and health education provided. Related to Type 2 diabetes mellitus without complications A blood glucose log and medication list were provided for the patient with specific instruction on how and when to take medications and check/log blood glucose. Instructed patient to bring back this log for every CMM visit. Discussed how to identify and treat low blood sugar (hypoglycemia). Lab results discussed with patient and all questions were answered. Medication therapy plan was extensively discussed including possible adverse drug reactions, drug interactions, and therapeutic effects. Education: Education provided considers health literacy level. Patient states/demonstrates understanding of the assessment, plan, and health education provided. Related to Type 2 diabetes mellitus without complications Education provided c onsiders health literacy level. Patient states/demonstrates understanding ofthe assessment, plan, and health education provided. Related to Counseling, unspecified You will be referred to a orthopedic surgeon. Please expect a letter in the mail with contact information. Please call to schedule an appointment once you receive the contact information. Related to Tear of medial meniscus of left knee, current, unspecified tear type, initial encounter Decrease intake of f ried food, butter, and red meatTry and exercise 30 minutes a day 5 days a week Related to Mixed hyperlipidemia Educated patient on complications of DM and how to prevent them with proper diet, exercise, and insulin/medication administration and adherence. Educated patient on proper BG monitoring and how to keep a BG log. A blood glucose log and medication list were provided for the patient with specific instruction on how and when to take medications and check/log blood glucose. Instructed patient to bring back this log for every CMM visit. Discussed how to identify and treat low blood sugar (hypoglycemia). Lab results discussed with patient and all questions were answered. Medication therapy plan was extensively discussed including possible adverse drug reactions, drug interactions, and therapeutic effects. Education: Education provided considers health literacy level. Patient states/demonstrates understanding of the assessment, plan, and health education provided. Related to Type 2 diabetes mellitus without complication, without long-term current use of insulin Educated patient on complications of DM and how to prevent them with proper diet, exercise, and insulin/medication administration and adherence. Educated patient on proper BG monitoring and how to keep a BG log. A blood glucose log and medication list were provided for the patient with specific instruction on how and when to take medications and check/log blood glucose. Instructed patient to bring back this log for every CMM visit. Discussed how to identify and treat low blood sugar (hypoglycemia). Lab results discussed with patient and all questions were answered. Medication therapy plan was extensively discussed including possible adverse drug reactions, drug interactions, and therapeutic effects. Education: Education provided considers health literacy level. Patient states/demonstrates understanding of the assessment, plan, and health education provided. Related to Type 2 diabetes mellitus without complications Diet education Related to Dieta ry Counseling and Surveillance Exercise education Related to Ex ercise Counseling Education provided c onsiders health literacy level. Patient states/demonstrates understanding ofthe assessment, plan, and health education provided. Related to Counseling, unspecified Education provided c onsiders health literacy level. Patient states/demonstrates understanding ofthe assessment, plan, and health education provided. Related to Type 2 diabetes mellitus without complication, unspecified whether exterminator termite insulin use Education provided c onsiders health literacy level. Patient states/demonstrates understanding ofthe assessment, plan, and health education provided. Related to Counseling, unspecified Education provided c onsiders health literacy level. Patient states/demonstrates understanding ofthe assessment, plan, and health education provided. Related to Type 2 diabetes mellitus with hyperlipidemia it is important to e at more vegetables and lean meats, avoid fast food, fried food, and sugary drinks and snacks. try and exercise 30 minutes a day for 5 days a week . Related to Encounter for general adult medical examination without abnormal findings please schedule an M RI of your left knee You will be referred to a physical therapist. Please expect a letter in the mail with contact information. Please call to schedule an appointment once you receive the contact information. Related to Pain, joint, knee, left please schedule an a ppointment with the diabetic specialist It is important to cut down on foods high in sugar and also high in carbohydrates such as bread, pasta, tortillas, and sweets Related to Type 2 diabetes mellitus with hyperlipidemia fasting labs today-- -> ff up with pcphealthy lifestyle continue meds Related to Type 2 diabetes mellitus without complication, unspecified whether exterminator termite insulin use Assessments Type Assessment Date assessment Type 2 diabetes mellitus without complications Patient Care Teams Name Effective Dates (start - stop) Status Members No Information
[2024-07-25 10:22] LABS: Alanine Aminotransferase 38 U/L (0-40); Albumin Level 4.4 g/dL (3.5-5.0); Alkaline Phosphatase 56 U/L (39-117); Anion Gap 9 (12-20); Aspartate Amino Transferase 30 U/L (5-37); Bilirubin Total 0.5 mg/dL (0.0-1.0); Blood Urea Nitrogen 12 mg/dL (9-16); Calcium 9.4 mg/dL (8.4-10.2); Carbon Dioxide 28 mmol/L (22-29); Chloride 107 mmol/L (96-108); Cholesterol 228 mg/dL (<200); Estimated Glomerular Filt Rate > 60; Glucose Fasting 99 mg/dL (60-99); HDL Cholesterol 65 mg/dL (>40); LDL Cholesterol Calculated 151 mg/dL (<100); Potassium 4.1 mmol/L (3.3-5.1); Sodium 140 mmol/L (135-145); Total Protein 7.2 g/dL (6.5-8.0); Triglycerides 64 mg/dL (<150)
[2024-07-25 10:41] LABS: Prostate Specific Antigen 3.42 ng/mL (<0.05-4.0)
== END 2024-07-25 09:16 | disposition home or self-care (01) ==
LOC: HO.LAB 09:15
PROVIDERS: PCP Internal Medicine Medical Oncology; Visit Provider Internal Medicine Medical Oncology
DX: N40.0 Benign prostatic hyperplasia without lower urinary tract symptoms (principal); J45.909 Unspecified asthma, uncomplicated; Z12.5 Encounter for screening for malignant neoplasm of prostate
CPT/HCPCS: 36415; 80053; 80061; 84153; 85025

== ENCOUNTER 2024-12-22 01:15 | Emergency (ER) | payer OTHER, SELFPAY ==
--- OUTSIDE RECORDS SUMMARY | 2024-12-20 03:36 | XMS_ITS | Continuity of Care Document ---
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 Role Phone No Information Unavailable Unavailable Allergies, Adverse Reactions, Alerts Substance Reaction Status Criticality No Known Allergies Active No Inform ation Medications Medication Instructions Dosage Effective Dates (start - stop) Status Comments NAPROXEN 500 MG TABLET TAKE 1 TABLET BY ORAL ROUTE 2 TIMES EVERY DAY WITH FOOD NEEDED FOR KNEE PAIN - Active FreeStyle Magdi 3 Plus Sensor device Check blood glucose 3-5 times daily for DM type 2 e11.65 - Active 6 sensors for 90 days FreeStyle Magdi 3 [place] Check 3-5 times daily for DM type 2 e11.65 - Active metformin ER 500 mg tablet,extended release 24 hr TAKE 2 TABLET BY ORAL ROUTE 2 TIMES EVERY DAY WITH MEALS FOR DM - Active Novolog FlexPen U-100 Insulin aspart 100 unit/mL (3 mL) subcutaneous inject 20 by Subcutaneous route 3 times every day 20 - Active okay to switch with covered alternatives: Admelog, Humalog, Apidra Ozempic 2 mg/dose (8 mg/3 mL) subcutaneous pen injector inject (2MG) by subcutaneous route every week on the same day of each week for DM type 2 e11.65 - Active pen needle, diabetic 32 gauge x 3/16 use insulin 4x daily for DM type 2 e11.65 - Active rosuvastatin 10 mg tablet take 1 tablet by oral route every day for hyperlipidemia 10 MG - Active Semglee (insulin glargine-yfgn) Pen 100 unit/mL (3 mL) subcutaneous inject 65 unit by subcutaneous route every bedtime as per insulin protocol 65 unit - Active Procedures Procedure Date Office Visit (Phone) AMNT PAIN NOTED; NONE PRSNT MED LIST DOCD IN [facility] MTM By Pharm Est 15 Min ( Phone) 2024 MTM By Pharm Est 15 Min ( Phone) 2024 MTM By Pharm Est 15 Min ( Phone) 2024 MTM By Pharm Est 15 Min ( Phone) 2024 MTM By Pharm Est 15 Min ( Phone) 2024 MTM Bv Pharm Est 15 Min ( V V ) Eye Exam With Photos Ind Handle Finisher 30 Min Ind Nutrition Est- 30 Min ( V V ) Ind Handle Finisher 30 Min MTM By Pharm, Est,15 Min DIAST BP < 80 MM HG SYST BP LT 130 MM HG VENIPUNCTURE Idris Palma [id number] Panel (Q) [id number] (Q) MTM Bv Pharm Est 15 Min ( V V ) MTM Bv Pharm Est 15 Min ( V V ) Ind Nutrition Est- 30 Min ( V V ) Office Visit (Phone) RVW MEDS BY RX/DR IN [facility] AMNT PAIN NOTED; NONE PRSNT MED LIST DOCD IN [facility] MTM Bv Pharm Est 15 Min ( V V ) MTM Bv Pharm Est 15 Min ( V V ) MTM Bv Pharm Est 15 Min ( V V ) Ind Nutrition Est - 30 Min MTM Bv Pharm Est 15 Min ( V V ) 024 MTM Bv Pharm Est 15 Min ( V V ) Ind Handle Finisher 45 Min Colon Rectal Cancer Screening Office Visit, Est RVW MEDS BY RX/DR IN [facility] AMNT PAIN NOTED; NONE PRSNT MED LIST DOCD IN [facility] VENIPUNCTURE [place] [id number] (Q) [id number] Panel (Q) [id number]- TSH T4 (Q) MTM By Pharm 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 15min ( V V ) MTM By Pharm Addl 15Min (V V ) Medical Nutrition Ind 1Hour ( V V ) Ind Handle Finisher 15 Min Office Visit, Est RVW MEDS BY RX/DR IN [facility] MED LIST DOCD IN [facility] DIAST BP < 80 MM HG SYST BP LT 130 MM HG Eye Exam With Photos Ind Handle Finisher 45 Min Hearing Test Vision Screening F.I.T Kit Given Estab Pt 40-64 Yrs RVW MEDS BY RX/DR IN [facility] MED LIST DOCD IN [facility] AMNT PAIN NOTED; PAIN PRSNT DIAST BP < 80 MM HG SYST BP LT 130 MM HG VENIPUNCTURE [place] [id number] (Q) [id number] Panel (Q) [id number]- TSH T4 (Q) [id number] Total (Q) VENIPUNCTURE [place] [id number] (Q) [id number]-Sizoeunuhysxaio (Q) [id number]- LFT (Q) [id number]- Lipid Panel W/Reflex (Q) [id number] Trachorr (Q) [id number] (Q) [id number] (Q) [id number] W/Reflux Culture (Q) 2023 [id number] D (Q) [id number] (Q) Office Visit, New AMNT PAIN NOTED; NONE PRSNT Call Center Triage Nurse Advance Directives Directive Yes / No Effective Date File Name No Information Encounters Encounter Description Practice Location Reason(s) For Visit Diagnoses Date Provider Providers Copied on Encounter [facility] n, [address], [place], [address], [place] tel:[phone] [place] [facility] No Information 5 No Information [facility] n, [address] [place], [address], [place] tel:[phone] [place] [facility] Episodic (chief complaint) Nocturia 5 Angelo Whaley. [address], [place], [address], [place]. tel:[phone] [facility] n, [address], [place], [address], [place] tel:[phone] [place] [facility] No Information 5 Gabby Khan. [address], [place], [id number], [place]. tel:[phone] [facility] n, [address], [place], [address], [place] tel:[phone] [facility] DM type 2 (chief complaint) Type 2 diabetes mellitus without complications 5 Tossoun Jaylan. [address] [place], [place], [id number], [place]. tel:[phone] [facility] n, [address], [place], [address], [place] tel:[phone] [facility] DM type 2 (chief complaint) Type 2 diabetes mellitus without complications 5 Tossoun Jaylan. [address] , [place], [place], [id number], [place]. tel:[phone] [facility] n, [address], [place], [address], [place] tel:[phone] [facility] DM type 2 (chief complaint) Type 2 diabetes mellitus without complications 5 Tossoun Jaylan. [address] [place], [place], [id number], [place]. tel:[phone] [facility] n, [address], [place], [address], [place] tel:[phone] [facility] DM type 2 (chief complaint) Type 2 diabetes mellitus without complications 5 Tossoun Jaylan. [address] [place], [place], [id number], [place]. tel:[phone] [facility] n, [address], [place], [address], [place] tel:[phone] [facility] DM type 2 (chief complaint) Type 2 diabetes mellitus without complications 5 Tossoun Jaylan. [address] [place], [place], [id number], [place]. 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 [address] [place] [address], [address], . tel:[phone] [facility] n, [address] [facility] [facility] [place], [address], [place] tel:[phone] [facility] DM type 2 (chief complaint) Type 2 diabetes mellitus without complications 5 Freedom Tian. [address], [place], [id number], [place]. tel:[phone] Ind Handle Finisher 30 Min [facility], [address] [place], [place] [address] [place], [address], tel:[phone] [place] [facility] Retinal Screen Results (chief complaint)D M FOOT Screen (chief complaint)B lood Glucose Readings F/U (chief complaint) Type 2 diabetes mellitus without complications 5 [facility]. [address] [place] [address], [address], [place]. tel:[phone] [facility] n, [address] [place], [address], [place] tel:[phone] [place] [facility] T2DM (chief complaint) Exercise counselingDietar y counseling and surveillance 5 [facility]. [address] [place] [address], [address], [place]. tel:[phone] Ind Handle Finisher 30 Min [facility], [address] [place], [place] [address], [address], [place] tel:[phone] [place] [facility] Blood Glucose Readings F/U (chief complaint) Counseling, unspecified Jun- 5 [facility]. [address] [place] [address], [address], . tel:[phone] MTM By Pharm, Est,15 Min [facility], [address] [place], [address], tel:[phone] [facility] DM type 2 (chief complaint) Type 2 diabetes mellitus without complications 2 5 Tossoun Jaylan. [address], [place], [id number], [place]. tel:[phone] [facility], [address] [place], [facility], tel:[phone] [place] [facility] DM type 2 (chief complaint) Type 2 diabetes mellitus without complications 4 Tossoun Jaylan. [address], [place], [id number], [place]. tel:[phone] [facility], [address] [place], [place], [facility], [place] tel:[phone] [place] [facility] DM type 2 (chief complaint) Type 2 diabetes mellitus without complications 4 Tossoun Jaylan. [address], [place], [id number], [place]. tel:[phone] [facility], [address] [place], [facility], [place] tel:[phone] [place] [facility] T2DM (chief complaint) Exercise counselingDietar y counseling and surveillance 4 [facility]. [address] [place] [address], [address], [place]. tel:[phone] [facility], [address] [place], [address], [place] tel:[phone] [facility] Episodic (chief complaint)d iabetes (chief complaint) Type 2 diabetes mellitus without complications 4 [facility]. [address], [place], [address], [place]. tel:[phone] [facility] n, [address], [place], [address], [place] tel:[phone] [place] [facility] DM type 2 (chief complaint) Type 2 diabetes mellitus without complications Feb-0 4 Tossoun Jaylan. [address] [place], [place], [id number], [place]. tel:[phone] [facility] n, [address], [place], [address], [place] tel:[phone] [facility] No Information 4 Nursing Visit. [address], [place], [id number], [place]. tel:[phone] [facility] n, [address] [place], [address], [place] tel:[phone] [facility] DM type 2 (chief complaint) Type 2 diabetes mellitus without complications Dec-2 4 Tossoun Jaylan. [address] [place], [place], [id number], [place]. tel:[phone] [facility] n, [address] [place], [address], [place] tel:[phone] [facility] DM type 2 (chief complaint) Type 2 diabetes mellitus without complications Sep-0 4 Tossoun Jaylan. [address] [place], [place], [id number], [place]. tel:[phone] [facility] n, [address] [place], [address], [place] tel:[phone] [place] [facility] t2dm (chief complaint) Exercise counselingDietar y counseling and surveillanceBody mass index (BMI) 36.0-36.9, adult 4 [facility]. [address] [place], [address], [place]. tel:[phone] [facility] n, [address] [facility], [address], [place] tel:[phone] [place] [facility] DM type 2 (chief complaint) Type 2 diabetes mellitus without complications 4 Tossoun Jaylan. [address], [place], [id number], [place]. tel:[phone] [facility] n, [address] [place], [address], [place] tel:[phone] [place] [facility] DM type 2 (chief complaint) Type 2 diabetes mellitus without complications 4 Tossoun Jaylan. [address], [place], [id number], [place]. tel:[phone] Ind Handle Finisher 45 Min [facility] n, [facility] [facility] [facility] [place], [address], [place] tel:[phone] [place] [facility] FreeStyle Magdi 2 Sensor Teaching (chief complaint)I nsulin Teaching (chief complaint) Counseling, unspecifiedEncou nter for screening for malignant neoplasm of colon 4 [facility]. [address] [place] [address], [address], [place]. tel:[phone] Office Visit, Est [facility] n, [address] [place], [address], [place] tel:[phone] [place] [facility] Episodic (chief complaint)d iabetes (chief complaint) Type 2 diabetes mellitus without complication, without long-term current use of insulinMixed hyperlipidemiaTe ar of medial meniscus of left knee, current, unspecified tear type, initial encounter 4 Gabby Khan. [address], [place], [id number], [place]. tel:[phone] [facility] n, [address] [place], [address], tel:[phone] [place] [facility] DM type 2 (chief complaint) Type 2 diabetes mellitus without complications 0 4 Tossoun Jaylan. [address], [place], [id number], [place]. tel:[phone] [facility] n, [address] [place], [address], [place] tel:[phone] [place] [facility] DM mgmt (chief complaint) Exercise counselingDietar y counseling and surveillance 4 [facility]. [address] [place] [address], [address], . tel:[phone] Ind Handle Finisher 15 Min [facility], [facility] [facility] [place], [facility], tel:[phone] [place] [facility] Trulicity Teaching (chief complaint) Counseling, unspecified 4 [facility] [place] [address], [address], . tel:[phone] Office Visit, Est [facility] n, [address] [place], [address], tel:[phone] [place] [facility] Episodic (chief complaint)d iabetes (chief complaint) Body mass index (BMI) 36.0-36.9, adultType 2 diabetes mellitus without complication, unspecified whether correction insulin use 4 Gabby Khan. [address], [place], [id number], [place]. tel:[phone] [facility] n, [address] [place], [address], tel:[phone] [place] [facility] Cataract cortical, senile, unspecified laterality 4 [facility]. [address] [place], [address], [place]. tel:[phone] Ind Handle Finisher 45 Min [facility] n, [address], [place], [address], [place] tel:[phone] [place] [facility] Retinal (chief complaint)D M Education (chief complaint) Type 2 diabetes mellitus with hyperlipidemiaCo unseling, unspecified Jun- 4 [facility]. [address] [place], [address], [place]. tel:[phone] Estab Pt 40-64 Yrs [facility], [address] [place], [facility], tel:[phone] [place] [facility] preventive exam (chief complaint)d iabetes (chief complaint)k nee pain (chief complaint) Encounter for general adult medical examination without abnormal findingsBody mass index (BMI) 36.0-36.9, adultEncounter for screening for malignant neoplasm of colonType 2 diabetes mellitus with hyperlipidemiaHy perlipidemia, unspecifiedPain, joint, knee, leftElevated bilirubin 4 Cheterese Khan. [address] [place], [place], [id number], [place]. tel:[phone] Office Visit, New [facility] n, [address] [place], [address], [place] tel:[phone] [place] [facility] Episodic (chief complaint) Type 2 diabetes mellitus without complication, unspecified whether salvage determiner insulin use 4 Julieta Ley. [address] [place], [address], [place]. tel:[phone] [facility] n, [address] [place], [address], [place] tel:[phone] Call Center Triage No DX Code 4 Nursing Visit. [address] [place], [place], [id number], [place]. tel:[phone] [facility] n, [address], [place], [address], [place] tel:[phone] No Information 4 No Information Family History Family Member Type Diagnosis Age At Onset Father Problem Hypercholesterolemia Mother Problem Diabetes mellitus Father Problem Hypertension Mother Problem Hypertension Father Problem Diabetes mellitus Mother Problem Hypercholesterolemia Immunizations Vaccine Date Status Comments SARS-COV-2 (COVID-19) vaccin e, mRNA, spike protein, LNP, preservative free, 30 mcg/0.3 mL dose 12 years of age and older ([employer] Comirnaty) administered Note: [facility] ; Source: Other Provider INFLUENZA administered Note: [facility] ; Source: Other Provider Flu quadrivalent injectable MDCK pfree administered Note: IMM Info from [facility], Administered at Location: [id number] ; Source: Other Provider Pneumococcal conjugate PCV20 administered Note: IMM Info from [facility], Administered at Location: [facility] ; Source: Other Provider Flu quadrivalent injectable pfree administered Note: IMM Info from [facility], Administered at Location: [facility] ; Source: Other Provider COVID-19 mRNA bivalent 12+ administered N ote: IMM Info from [facility], Administered at Location: [employer] ; Source: Other Provider [employer] mRNA LNP-S PF 12yrs a nd older administered Note: IMM Info from [facility], Administered at Location: [facility] ; Source: Other Provider HepB-Adult administered Note: IMM Info from [facility], Administered at Location: [facility] ; Source: Other Provider Zoster administered Note: IMM Info from [facility], Administered at Location: [facility] ; Source: Other Provider COVID-19, mRNA,LNP-S,PF administered Note : IMM Info from [facility], Administered at Location: [facility] ; Source: Other Provider Flu quadrivalent injectable MDCK pfree administered Note: IMM Info from [facility], Administered at Location: [facility] [id number] ; Source: Other Provider Tdap administered Note: IMM Info from [facility], Administered at Location: [facility] [id number] ; Source: Other Provider HepB-Adult administered Note: IMM Info from [facility], Administered at Location: [facility] [id number] ; Source: Other Provider Pneumococcal 23 administered Note: IMM In fo from [facility], Administered at Location: [address] ; Source: Other Provider COVID-19, mRNA,LNP-S,PF administered Note : IMM Info from [facility], Administered at Location: [facility] Vaccine Preventable Disease Control [facility] ; Source: Other Provider COVID-19, mRNA,LNP-S,PF administered Note : IMM Info from [facility], Administered at Location: [facility] Prevent[facility] Disease Control [facility] ; Source: Other Provider HepB-Adult administered Note: IMM Info from [facility], Administered at Location: [facility] ; Source: Other Provider Zoster administered Note: IMM Info from [facility], Administered at Location: [facility] ; Source: Other Provider Flu quadrivalent injectable pfree administered Note: IMM Info from [facility], Administered at Location: [facility] ; Source: Other Provider Payers Payer name Insurance type Covered republican ID Authoriza tion(s) No Information Social History Type Description Quantity Date Captured Comments Sex Male Smoking Status No Information Chief Complaint And Reason For Visit No Information Reason For Referral Reason For Referral No Information Plan Of Treatment Date Type Action Status Goal GFR. Due on due Goal Dilated eye exam. Due on Nov due Goal ASCVD 10 year risk. Due on A due Goal Hep B (). Due on due Goal Hemoglobin A1C. Due on due Goal Pneumococcal vac cine. Due on due Goal Depression scree tabitha. Due on due Goal Influenza vaccine. Due on due Goal Foot exam. Due on due Goal TB Risk Assessment. Due on due Goal Unhealthy drug u se screening. Due on due Goal Shingrix (). Due on due Goal Dental exam. Due on due Goal Health Literacy Assessment d ue Goal FIT. Due on due Goal Colonoscopy. Due on due Goal Td vaccine. Due on due Goal Tdap due Goal CPE. Due on due Goal Hep C Ab. Due on due Goal Diabetes screening. Due on due Goal Hepatitis C scre ening. Due on due Goal GFR. Due on due Goal Hep B (). Due on due Goal Hemoglobin A1C. Due on due Goal Depression scree tabitah. Due on due Goal Influenza vaccine. Due on due Goal Dilated eye exam. Due on Sep due Goal Foot exam. Due on due Goal Tdap due Goal CPE. Due on due Goal FIT. Due on due Goal Colonoscopy. Due on due Goal Health Literacy Assessment d ue Goal Dental exam. Due on due Goal ASCVD 10 year risk. Due on J due Goal Pneumococcal vac cine. Due on due Goal Hep C Ab. Due on due Goal Shingrix (). Due on due Goal Hepatitis C scre ening. Due on due Goal Diabetes screening. Due on due Goal Unhealthy drug u se screening. Due on due Goal Td vaccine. Due on due Goal TB Risk Assessment. Due on due Goal GFR. Due on due Goal Hep B (). Due on due Goal Dental exam. Due on due Goal Dilated eye exam. Due on August due Goal Hemoglobin A1C. Due on due Goal ASCVD 10 year risk. Due on due Goal Foot exam. Due on due Goal Shingrix (). Due on due Goal CPE. Due on due Goal Diabetes screening. Due on M due Goal TB Risk Assessment. Due on M due Goal Hep C Ab. Due on due Goal Influenza vaccine. Due on Oc due Goal FIT. Due on due Goal Pneumococcal vac cine. Due on due Goal Td vaccine. Due on due Goal Unhealthy drug u se screening. Due on due Goal Depression scree tabitha. Due on due Goal Tdap due Goal Hepatitis C scre ening. Due on due Goal Health Literacy Assessment d ue Goal Td vaccine. Due on due Goal Hepatitis C scre ening. Due on due Goal Shingrix (). Due on due Goal Foot exam. Due on due Goal Dilated eye exam. Due on August due Goal ASCVD 10 year risk. Due on M due Goal Dental exam. Due on due Goal GFR. Due on due Goal Hep B (). Due on due Goal Hemoglobin A1C. Due on due Goal Health Literacy Assessment d ue Goal Pneumococcal vac cine. Due on due Goal Diabetes screening. Due on M due Goal Unhealthy drug u se screening. Due on due Goal Tdap due Goal TB Risk Assessment. Due on due Goal Depression scree tabitha. Due on due Goal Hep C Ab. Due on due Goal FIT. Due on due Goal CPE. Due on due Goal Influenza vaccine. Due on Oc due Goal Tdap due Goal Health Literacy Assessment d ue Goal Diabetes screening. Due on due Goal Unhealthy drug u se screening. Due on due Goal CPE. Due on due Goal Shingrix (). Due on due Goal Dilated eye exam. Due on Jul due Goal TB Risk Assessment. Due on due Goal FIT. Due on due Goal Td vaccine. Due on 31 due Goal Hep C Ab. Due on due Goal Hepatitis C scre ening. Due on due Goal Depression scree tabitha. Due on due Goal GFR. Due on due Goal Pneumococcal vac cine. Due on due Goal Hep B (). Due on due Goal Hemoglobin A1C. Due on due Goal Dental exam. Due on due Goal ASCVD 10 year risk. Due on A due Goal Influenza vaccine. Due on Oc due Goal Foot exam. Due on due Goal Diet education completed Goal Hep B (). Due on due Goal ASCVD 10 year risk. Due on M due Goal Foot exam. Due on due Goal Dilated eye exam. Due on Jun due Goal GFR. Due on due Goal Hemoglobin A1C. Due on due Goal Shingrix (). Due on due Goal Hepatitis C scre ening. Due on due Goal FIT. Due on due Goal Td vaccine. Due on due Goal Dental exam. Due on due Goal Unhealthy drug u se screening. Due on due Goal Diabetes screening. Due on M due Goal Tdap due Goal Pneumococcal vac cine. Due on due Goal TB Risk Assessment. Due on M due Goal CPE. Due on due Goal Hep C Ab. Due on due Goal Health Literacy Assessment d ue Goal Influenza vaccine. Due on Oc due Goal Depression scree tabitha. Due on due Goal Diet education completed Goal ASCVD 10 year risk. Due on N due Goal GFR. Due on due Goal Depression scree tabitha. Due on due Goal Lipid panel. Due on 025 due Goal Hemoglobin A1C. Due on due Goal Influenza vaccine. Due on due Goal Pneumococcal vac cine. Due on due Goal Dental exam. Due on 024 due Goal Hep B (). Due on due Goal Foot exam. Due on due Goal Tdap due Goal Td vaccine. Due on 31 due Goal Diabetes screening. Due on due Goal TB Risk Assessment. Due on due Goal Unhealthy drug u se screening. Due on due Goal CPE. Due on due Goal Health Literacy Assessment d ue Goal Hep C Ab. Due on due Goal Shingrix (). Due on due Goal Dilated eye exam. Due on Feb due Goal FIT. Due on due Goal Urine microalbumin. Due on N due Goal Hepatitis C scre ening. Due on due Goal Depression scree tabitha. Due on due Goal Influenza vaccine. Due on due Goal Hep C Ab. Due on due Goal Td vaccine. Due on due Goal Diabetes screening. Due on due Goal Hepatitis C scre ening. Due on due Goal Pneumococcal vac cine. Due on due Goal TB Risk Assessment. Due on due Goal Foot exam. Due on due Goal Urine microalbumin. Due on due Goal GFR. Due on due Goal Health Literacy Assessment d ue Goal ASCVD 10 year risk. Due on due Goal Dental exam. Due on due Goal Hemoglobin A1C. Due on due Goal CPE. Due on due Goal Tdap due Goal Shingrix (). Due on due Goal FIT. Due on due Goal Unhealthy drug u se screening. Due on due Goal Dilated eye exam. Due on Dec due Goal Hep B (). Due on due Goal Hepatitis C scre ening. Due on due Goal Diabetes screening. Due on due Goal Tdap due Goal TB Risk Assessment. Due on due Goal Td vaccine. Due on due Goal Shingrix (). Due on due Goal CPE. Due on due Goal Unhealthy drug u se screening. Due on due Goal Hep C Ab. Due on due Goal ASCVD 10 year risk. Due on A due Goal Health Literacy Assessment d ue Goal FIT. Due on due Goal Hemoglobin A1C. Due on due Goal Depression scree tabitha. Due on due Goal Pneumococcal vac cine. Due on due Goal Influenza vaccine. Due on due Goal Dental exam. Due on due Goal Dilated eye exam. Due on Nov due Goal GFR. Due on due Goal Hep B (1st). Due on due Goal Urine microalbumin. Due on A due Goal Foot exam. Due on due Goal Diet education completed Goal Pneumococcal vac cine. Due on due Goal Diabetes screening. Due on due Goal Unhealthy drug u se screening. Due on due Goal TB Risk Assessment. Due on due Goal CPE. Due on due Goal Health Literacy Assessment d ue Goal FIT. Due on due Goal Td vaccine. Due on 31 due Goal Depression scree tabitha. Due on due Goal Hep C Ab. Due on due Goal Hepatitis C scre ening. Due on due Goal Influenza vaccine. Due on due Goal GFR. Due on due Goal Hep B (). Due on due Goal Dilated eye exam. Due on Nov due Goal Hemoglobin A1C. Due on due Goal Dental exam. Due on due Goal Urine microalbumin. Due on A due Goal ASCVD 10 year risk. Due on A due Goal Foot exam. Due on due Goal Shingrix (). Due on due Goal Tdap due Goal Urine microalbumin. Due on due Goal ASCVD 10 year risk. Due on due Goal Dilated eye exam. Due on Oct due Goal GFR. Due on due Goal Dental exam. Due on due Goal Pneumococcal vac cine. Due on due Goal Td vaccine. Due on due Goal Foot exam. Due on due Goal Tdap due Goal Hepatitis C scre ening. Due on due Goal Depression scree tabitha. Due on due Goal FIT. Due on due Goal Influenza vaccine. Due on due Goal Shingrix (). Due on due Goal Hep C Ab. Due on due Goal Health Literacy Assessment d ue Goal CPE. Due on due Goal TB Risk Assessment. Due on due Goal Unhealthy drug u se screening. Due on due Goal Diabetes screening. Due on due Goal Hemoglobin A1C. Due on due Goal Hep B (). Due on due Goal Tdap due Goal Health Literacy Assessment d ue Goal TB Risk Assessment. Due on due Goal Td vaccine. Due on due Goal Unhealthy drug u se screening. Due on due Goal Shingrix (). Due on due Goal Pneumococcal vac cine. Due on due Goal Diabetes screening. Due on due Goal Influenza vaccine. Due on due Goal Hepatitis C scre ening. Due on due Goal Depression scree tabitha. Due on due Goal FIT. Due on due Goal CPE. Due on due Goal Dilated eye exam. Due on Oct due Goal GFR. Due on due Goal Foot exam. Due on due Goal Dental exam. Due on due Goal Hep B (1st). Due on due Goal Urine microalbumin. Due on due Goal Hemoglobin A1C. Due on due Goal ASCVD 10 year risk. Due on due Goal Hep C Ab. Due on due Goal Dental exam. Due on due Goal GFR. Due on due Goal Foot exam. Due on due Goal Hemoglobin A1C. Due on due Goal Diabetes screening. Due on due Goal TB Risk Assessment. Due on due Goal Td vaccine. Due on due Goal Unhealthy drug u se screening. Due on due Goal Hepatitis C scre ening. Due on due Goal CPE. Due on due Goal ASCVD 10 year risk. Due on due Goal Shingrix (). Due on due Goal Urine microalbumin. Due on due Goal Hep C Ab. Due on due Goal Dilated eye exam. Due on Oct due Goal Hep B (1st). Due on due Goal Tdap due Goal Pneumococcal vac cine. Due on due Goal Health Literacy Assessment d ue Goal Influenza vaccine. Due on due Goal Colonoscopy. Due on due Goal Depression scree tabitha. Due on due Goal Urine microalbumin. Due on due Goal TB Risk Assessment. Due on due Goal Foot exam. Due on due Goal Tdap due Goal Hep B (). Due on due Goal Unhealthy drug u se screening. Due on due Goal Dilated eye exam. Due on August due Goal Td vaccine. Due on due Goal Hep C Ab. Due on due Goal Colonoscopy. Due on due Goal Health Literacy Assessment d ue Goal ASCVD 10 year risk. Due on due Goal GFR. Due on due Goal Dental exam. Due on due Goal Hemoglobin A1C. Due on due Goal Shingrix (). Due on due Goal CPE. Due on due Goal Depression scree tabitha. Due on due Goal Diabetes screening. Due on due Goal Pneumococcal vac cine. Due on due Goal Hepatitis C scre ening. Due on due Goal Influenza vaccine. Due on Ok due Goal Depression scree tabitha. Due on due Goal GFR. Due on due Goal Hemoglobin A1C. Due on due Goal Pneumococcal vac cine. Due on due Goal Foot exam. Due on due Goal Urine microalbumin. Due on due Goal Dilated eye exam. Due on August due Goal Dental exam. Due on due Goal ASCVD 10 year risk. Due on due Goal Hep B (). Due on due Goal Influenza vaccine. Due on due Goal Unhealthy drug u se screening. Due on due Goal Hep C Ab. Due on due Goal CPE. Due on due Goal Diabetes screening. Due on due Goal Shingrix (). Due on due Goal Health Literacy Assessment d ue Goal Td vaccine. Due on 31 due Goal Hepatitis C scre ening. Due on due Goal Tdap due Goal TB Risk Assessment. Due on due Goal Colonoscopy. Due on due Goal Diet education completed Goal Hepatitis C scre ening. Due on due Goal Depression scree tabitha. Due on due Goal Pneumococcal vac cine. Due on due Goal Diabetes screening. Due on due Goal Health Literacy Assessment d ue Goal Unhealthy drug u se screening. Due on due Goal Influenza vaccine. Due on due Goal Shingrix (). Due on due Goal Tdap due Goal Colonoscopy. Due on due Goal Td vaccine. Due on due Goal Foot exam. Due on due Goal GFR. Due on due Goal Dilated eye exam. Due on August due Goal ASCVD 10 year risk. Due on due Goal Urine microalbumin. Due on due Goal Hep C Ab. Due on due Goal Hemoglobin A1C. Due on due Goal CPE. Due on due Goal Hep B (). Due on due Goal Dental exam. Due on due Goal TB Risk Assessment. Due on due Goal Hep C Ab. Due on due Goal Tdap due Goal TB Risk Assessment. Due on due Goal Unhealthy drug u se screening. Due on due Goal Influenza vaccine. Due on due Goal Shingrix (). Due on due Goal Td vaccine. Due on due Goal Diabetes screening. Due on due Goal Colonoscopy. Due on due Goal Depression scree tabitha. Due on due Goal Pneumococcal vac cine. Due on due Goal Health Literacy Assessment d ue Goal Hep B (). Due on due Goal Urine microalbumin. Due on due Goal Foot exam. Due on due Goal Dilated eye exam. Due on August due Goal GFR. Due on due Goal Hepatitis C scre ening. Due on due Goal CPE. Due on due Goal Dental exam. Due on due Goal Hemoglobin A1C. Due on due Goal ASCVD 10 year risk. Due on due Goal TB Risk Assessment. Due on due Goal Shingrix (). Due on due Goal Hep C Ab. Due on due Goal Hemoglobin A1C. Due on due Goal Hep B (). Due on due Goal Urine microalbumin. Due on A due Goal Foot exam. Due on due Goal Diabetes screening. Due on due Goal Colonoscopy. Due on due Goal Hepatitis C scre ening. Due on due Goal Td vaccine. Due on 31 due Goal Tdap due Goal GFR. Due on due Goal Dental exam. Due on due Goal ASCVD 10 year risk. Due on A due Goal Dilated eye exam. Due on Jul due Goal Pneumococcal vac cine. Due on due Goal Health Literacy Assessment d ue Goal Unhealthy drug u se screening. Due on due Goal Depression scree tabitha. Due on due Goal Influenza vaccine. Due on due Goal CPE. Due on due Goal Shingrix (). Due on due Goal Unhealthy drug u se screening. Due on due Goal Depression scree tabitha. Due on due Goal Colonoscopy. Due on due Goal Hep C Ab. Due on due Goal Tdap due Goal Health Literacy Assessment d ue Goal Influenza vaccine. Due on Ok due Goal Td vaccine. Due on due Goal CPE. Due on due Goal Diabetes screening. Due on due Goal Hepatitis C scre ening. Due on due Goal TB Risk Assessment. Due on due Goal Foot exam. Due on due Goal Pneumococcal vac cine. Due on due Goal Hep B (). Due on due Goal Dental exam. Due on due Goal Urine microalbumin. Due on due Goal GFR. Due on due Goal Dilated eye exam. Due on Jun due Goal Hemoglobin A1C. Due on due Goal ASCVD 10 year risk. Due on due Goal Depression scree tabitha. Due on due Goal Hep C Ab. Due on due Goal Diabetes screening. Due on due Goal Pneumococcal vac cine. Due on due Goal Tdap due Goal Health Literacy Assessment d ue Goal Hepatitis C scre ening. Due on due Goal Influenza vaccine. Due on Ok due Goal Unhealthy drug u se screening. Due on due Goal Shingrix (). Due on due Goal Dental exam. Due on due Goal GFR. Due on due Goal Foot exam. Due on due Goal ASCVD 10 year risk. Due on due Goal Hemoglobin A1C. Due on due Goal Urine microalbumin. Due on due Goal Dilated eye exam. Due on Jun due Goal CPE. Due on due Goal TB Risk Assessment. Due on due Goal Hep B (). Due on due Goal Td vaccine. Due on due Goal Colonoscopy. Due on due Goal Dental exam. Due on due Goal Foot exam. Due on due Goal ASCVD 10 year risk. Due on due Goal Hemoglobin A1C. Due on due Goal Dilated eye exam. Due on Jun due Goal GFR. Due on due Goal Urine microalbumin. Due on due Goal Hep B (). Due on due Goal Health Literacy Assessment. Due on due Goal CPE. Due on due Goal Unhealthy drug u se screening. Due on due Goal Colonoscopy. Due on due Goal Tdap due Goal Diabetes screening. Due on due Goal Depression scree tabitha. Due on due Goal TB Risk Assessment. Due on due Goal Influenza vaccine. Due on due Goal Hepatitis C scre ening. Due on due Goal Shingrix (). Due on due Goal FIT. Due on due Goal Pneumococcal vac cine. Due on due Goal Td vaccine. Due on due Goal Hep C Ab. 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 Evaluate and treat ordered Referral Ordered: Orthopedics (related to Tear of medial meniscus of left knee, current, unspecified tear type, initial encounter) ordered Referral Ordered: * [facility] Office Receptionist (related to Type 2 diabetes mellitus without complications) ordered Referral Ordered: Ophthalmology (related to Cataract cortical, senile, unspecified laterality) ordered Referral Ordered: Referrals: Ophthalmology. Evaluate and treat ordered Referral Ordered: [facility] Nutrition (related to Type 2 diabetes mellitus with hyperlipidemia) ordered Referral Ordered: Physical Therapy (related to Pain, joint, knee, left) ordered Referral Ordered: * [facility] Clinical Pharmacist (related to Type 2 diabetes mellitus with hyperlipidemia) ordered Referral Ordered: MRI LE Joint w/o dye Left knee ordered Appointment ASHLEY HERRERA BOOKED Appointment ASHLEY HERRERA BOOKED Appointment ASHLEY HERRERA BOOKED Future Order: Lab Order Urinalys is Reflex ([facility] Only. For [facility] Order Code [id number]) ([id number]), Ordered on: Ordered Future Order: Lab Order PSA (ADARSH E AND TOTAL) ([id number]), Ordered on: Ordered Future Order: Lab Order DIABETES PANEL ($) ([id number]), Ordered on: Ordered History Of Present Illness Encounter Date Complaint History Of Prese nt Illness Episodic Telephone Visit pt requesting prostate exam Margarita SMITH Verbal consent obtained for telephone visit. Patient was informed that they have the right to in-person services; virtual visit is voluntary; transportation is available for in-person visits; there are limitations to virtual visits.Location of patient: Patient's homeLocation of physician: [facility]he wants a blood test for prostate. he urinates at night 1-2 times and reports ed DM type 2 Follow-up appoin [facility] with clinical pharmacist for the management of DM type 2. Pt didn't p.u CGM b/c he was on vacation...SMBG levels: FS Magdi 3 ([facility] isn't dispensing)14 day avg: n/v84ht-3px: n/c0ql-23cy: n/o66fb-8mt: n/w2cp-04pc: n/a Current DM Medications:Metformin ER 1000mg BIDSemglee 65 units at bedtimeNovolog 20 units TID before each mealOzempic 2 mg/week Current Cholesterol Medications:Rosuvastatin 10mg dailyPreviously tried medications & reasons for d/c:Atenolol, glipizide, piogltazone, Trulicity 1.5mg/weekFamily History? 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 (Patient's name and were verified.)[facility] location[facility] homeReason for telephone visit: Patient PreferencePatient consent: patient verbally consented for telephone visitOther staff involved in visit: Christelle Leiva (pharmacy service associate) for French interpretation DM type 2 Follow-[facility] app[facility] with clinical pharmacist for the management of DM type 2. Didn't pickler helper CGM d/t high co-pay cost. Would like to send Rx to [facility] to see if he can get a lower cost.SMBG levels: FS Magdi 3 ([facility] isn't dispensing)14 day avg: n/m40wq-3nx: n/k3ky-16wl: n/n88tr-6wm: n/x5dq-70qp: n/a Current DM Medications:Metformin ER 1000mg BIDSemglee 65 units at bedtimeNovolog 20 units TID before each mealOzempic 2 mg/week Current Cholesterol Medications:Rosuvastatin 10mg dailyPreviously tried medications & reasons for d/c:Atenolol, glipizide, piogltazone, Trulicity 1.5mg/weekFamily History? 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 (Patient's name and were verified.)Patient location: LT[facility] location: [facility] for telephone visit: Patient PreferencePatient consent: patient verbally consented for telephone visitOther staff involved in visit: Hao BETANCOURT [id number] for French interpretation DM type 2 Follow-up appoin tment with clinical pharmacist for the management of DM type 2. SMBG levels: FS Magdi 3 ([facility] isn't dispensing)14 day avg: n/m84yf-8zs: n/i6iu-02yp: n/b75yd-6er: n/m2nm-41ag: n/a Current DM Medications:Metformin ER 1000mg BIDSemglee 65 units at bedtimeNovolog 20 units TID before each mealOzempic 2 mg/week Current Cholesterol Medications:Rosuvastatin 10mg dailyPreviously tried medications & reasons for d/c:Atenolol, glipizide, piogltazone, Trulicity 1.5mg/weekFamily History? 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 (Patient's name and were verified.)[facility] for telephone visit: Patient PreferencePatient consent: patient verbally consented for telephone visitOther staff involved in visit: Christelle Leiva (Machine Precision Etcher) for French interpretation DM type 2 [facility] with clinical pharmacist for the management of DM type 2. SMBG levels: FS Magdi 2 14 day avg: n/l59hg-1ez: n/q4dh-03zt: n/g77zg-7ko: n/g7kt-02hi: n/aself-reports FBG 102-138 and PPG <190 Current DM Medications:Metformin ER 1000mg BIDSemglee 55 units at bedtimeNovolog 18 units TID before each mealOzempic 2 mg/week Current Cholesterol Medications:Rosuvastatin 10mg dailyPreviously tried medications & reasons for d/c:Atenolol, glipizide, piogltazone, Trulicity 1.5mg/weekFamily History? 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 (Patient's name and were verified.)Patient location: [facility] location: [facility] for telephone visit: Patient PreferencePatient consent: patient verbally consented for telephone visitOther staff involved in visit: Christelle Leiva (Machine Precision Etcher) for French interpretation DM type 2 [facility] with clinical pharmacist for the management of DM type 2. Pt self-lowered insulin b/c his readings were low SMBG levels: FS Magdi 2 7 day [id number]: 1556am-12pm: 27774ku-1an: 2606pm-12am: 255 Current DM Medications:Metformin ER 1000mg BIDSemglee 50 units at bedtimeNovolog 20 units before lunch and 15 units before dinnerOzempic 2 mg/week Current Cholesterol Medications:Rosuvastatin 10mg dailyPreviously tried medications & reasons for d/c:Atenolol, glipizide, piogltazone, Trulicity 1.5mg/weekFamily History? 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 (Patient's name and were verified.)[facility] for telephone visit: Patient PreferencePatient consent: patient verbally consented for telephone visitOther staff involved in visit: Christelle Leiva (Machine Precision Etcher) for French interpretation DM type 2 Follow-up appoin tment with clinical pharmacist for the management of DM type 2. SMBG levels: FS Magdi 2 14 day [id number]: 1326am-12pm: 60627cp-2qi: 1896pm-12am: 200 Current DM Medications:Metformin ER 1000mg BIDSemglee 62 units at bedtimeNovolog 15 units before lunch + dinnerOzempic 2 mg/week Current Cholesterol Medications:Rosuvastatin 10mg dailyPreviously tried medications & reasons for d/c:Atenolol, glipizide, piogltazone, Trulicity 1.5mg/weekFamily History? 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 (Patient's name and were verified.)Patient location: [facility] location: [facility] for telephone visit: Patient PreferencePatient consent: patient verbally consented for telephone visitOther staff involved in visit: Christelle Leiva (Machine Precision Etcher) for French interpretation DM FOOT Screen Pt presents toda y for monofilament exam. Discussed proper foot care and maintenance with pt. Pt verbalized understanding. Educated pt to check feet periodically, keep skin dry, apply moisturizing lotion for dryness, check often for blisters, calluses, cuts or sores, see a doctor if you notice any of these, and keep glucose in control to prevent Diabetic Neuropathy. Monofilament Exam results: NORMAL Comments: Pt reports no complaints. [facility], [place], operated by [facility] Retinal Screen Results Patient w as educated [...] to Optometry/Ophthalmology. Photos taken and uploaded to [employer] for review.Last Retinal: Pt reported that he had bilateral cataracts and he had surgery to remove them last year in [place]. Pt reports that he has not seen an Gyroscopic Instrument Mechanic in the [facility]. DM: Pt presents with a history of approximately 6yrs with DM. Insulin: Pt reports that he started using insulin last year. Family Hx of Glaucoma: Pt is not sure if he has a family history of Glaucoma.Last A1C: 10.1-Korum-1422Pdoqsnr advised to contact [facility] for any further questions and/or concerns.[facility], [place], operated by [facility] Blood Glucose Readings F/U Reaso n for Visit: Blood Glucose Readings F/U Patient came in today for a Blood Glucose Readings F/U appt. Patient brought FreeStyle Magdi 2 [place]. The following BG reading averages were obtained from the patient's [employer] Magdi 2 reader:Last 14 days Average: 12450dl-2tk: 1746am-12pm: 73896ft-0lb: 2056pm-12am: 191Last 7 days Average:12am-6am: 1166am-12pm: 54242vs-3ar: 1456pm-12am: 230Is the patient taking diabetic meds [...] visit? NOLast A1C results and date drawn: 8-[id number]-[id number] patient on goals for A1c <7 in [...] Clinical Pharmacist appt. Pt verbalized understanding. [employer] [facility] T2DM Patient location : home Provider location: [facility] Visit Method- telephone/telehealth visit: Patient Preference Patient's [...] chayoteFluids: 5-6 (16 oz)Bowel Movements: [employer] ( 07/02/24 ): Chol: 120 ; HDL: 55 ; [...] 2,375 - 2,849 kcal/dayCalorie level ranges: Males 8352-7478 calories*Calorie needs vary based on several factors-age, sex, height, weight and physical activity level Protein Males 52-56 grams daily*Protein needs vary based on several factors-age, sex, height, weight and physical activity level Fluid wfxbx-0-2Mvlqqw or 8- 12 cups of 8oz daily [...] F/U appt. Patient brought FreeStyle Magdi 2 [place] to [facility] appt. The following BG reading averages were obtained from the patient's FreeStyle Magdi 2 [place]:Last 14 day and last 7 day Average: [id number]: 1826am-12pm: 12pm-6pm: 3476pm-12am: 292Last 30 days Average: [id number]-8np: 2876am-12pm:03618rw-1oy: 3636pm-12am: 334Is the patient taking diabetic meds [...] of 15. Scheduled BG readings F/U with [facility].[employer] [facility] DM type 2 Follow-up appoin tment with clinical pharmacist for the management of DM type 2. SMBG levels: FS Magdi 2 (didn't bring with him)14 day avg: n/k31ix-5cj: n/j1yl-18ci: n/e20mm-7it: n/o1ts-17qj: n/a Current DM Medications:Metformin ER 1000mg BIDSemglee 62 units at bedtimeNovolog 15 units before lunchOzempic 2 mg/week Current Cholesterol Medications:Rosuvastatin 10mg dailyPreviously tried medications & reasons for d/c:Atenolol, glipizide, piogltazone, Trulicity 1.5mg/weekFamily History? 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 SMBG levels: FS Magdi 2 (doesnt have with him)14 day [id number]: 1326am-12pm: 00753kl-6pg: 2286pm-12am: 230 Current DM Medications:Metformin ER 1000mg BIDSemglee 62 units at bedtimeNovolog 10 units before lunchOzempic 2 mg/week Current Cholesterol Medications:Rosuvastatin 10mg dailyPreviously tried medications & reasons for d/c:Atenolol, glipizide, piogltazone, Trulicity 1.5mg/weekFamily History? 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 (Patient's name and were verified.)Patient location: LTAC, [facility] within [facility] location: [facility] for telephone visit: Patient PreferencePatient consent: patient verbally consented for telephone visitOther staff involved in visit: Christelle Leiva (Machine Precision Etcher) for French interpretation. DM type 2 [facility] with clinical pharmacist for the management of DM type 2. SMBG levels: FS Magdi 2 (doesnt have with him)14 day avg: [id number]-3xq: uk4hh-18qe: pg06pv-0dc: aq0lo-67ap: naself-reports FBG 90-120 but PPGs can go up to 280s Current DM Medications:Metformin ER 1000mg BIDSemglee 62 units at bedtimeOzempic 2 mg/week Current Cholesterol Medications:Rosuvastatin 10mg dailyPreviously tried medications & reasons for d/c:Atenolol, glipizide, piogltazone, Trulicity 1.5mg/weekFamily History? 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 (Patient's name and were verified.)Patient location: homeProvider location: homeReason for telephone visit: Patient PreferencePatient consent: patient verbally consented for telephone visitOther staff involved in visit: Christelle Leiva (Machine Precision Etcher) for French interpretation. T2DM Patient location : home Provider location: [facility] Visit Method- telephone/telehealth visit: Patient Preference Patient's [...] on 3 meals/day. Discussed recent lab results. Kelton on reducing A1C to 8.4. Discussed methods [...] 2,375 - 2,849 kcal/dayCalorie level ranges: Males 4833-7155 calories*Calorie needs vary based on several factors-age, sex, height, weight and physical activity level Protein Males 52-56 grams daily*Protein needs vary based on several factors-age, sex, height, weight and physical activity level Fluid fndft-8-0Jsgbaj or 8- 12 cups of 8oz daily [...] Caloric Pattern - Recommended servings based on [employer] [facility] Vegetables: 3 cups/day. Bread, cereal and starches: 7 ounces/day. Protein & other meats: 6 ounces/day. Fruit 2 cups/day Dairy: 3 cups/day. 2400 Caloric Needs- Recommended servings based on [employer] and [employer]gov USDA Vegetables: 3 1/2 cups/day. Bread, cereal and starches: 9 ounces/day. Protein & other meats: 6 1/2 ounces/day. Fruit 2 cups/day Dairy: 3 cups/day. 2800 Caloric NeedsHandouts: plate method, food groups, portion sizesMonitoring: - A1C labs - weight F/U in 3 monthsEducation provided considers health literacy level. Patient states/demonstrates understanding of assessment, plan & health education provided. diabetes Managing with: O ral medications. Pertinent negatives include blurred vision, burning of extremities, chest pain, constant hunger, dental disease, diarrhea, dysesthesias, dyspnea, erectile dysfunction, foot ulcers, frequent infections, urinary frequency, heartburn, hypoglycemic episodes, impotence, increased fatigue, nocturia, polydipsia, slow healing wounds / sores, weight gain and weight loss. Episodic Telephone Visit for follow up on labs vianney FUNEZ Verbal consent obtained for telephone visit. Patient was informed that they have the right to in-person services; virtual visit is voluntary; transportation is available for in-person visits; there are limitations to virtual visits.Location of patient: Patient's homeLocation of physician: [facility]. DM type 2 [facility] clinical [facility]ist for the management of DM type 2. SMBG levels: FS Magdi 2 (doesnt have with him)14 day [id number]: 1696am-12pm: [id number]: 1956pm-12am: 193 Current DM Medications:Metformin ER 1000mg BIDSemglee 55 units at bedtimeOzempic 1mg/week Current Cholesterol Medications:Rosuvastatin 10mg dailyPreviously tried medications & reasons for d/c:Atenolol, glipizide, piogltazone, Trulicity 1.5mg/weekFamily History? 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 (Patient's name and were verified.)[facility] location: homeReason for telephone visit: Patient PreferencePatient consent: patient verbally consented for telephone visitOther staff involved in visit: Christelle Leiva (Machine Precision Etcher) for French interpretation. DM type 2 [facility] clinical pharmacist for the management of DM type 2. SMBG levels: FS Magdi 2 (doesnt have with him)14 day avg: n/y38mp-3pe: n/p6rp-32mh: n/q61sd-4tb: n/h9pk-73er: n/a Self reports FBGs can still go to 110-200sCurrent DM Medications:Metformin ER 1000mg BIDSemglee 50 units at bedtimeOzempic 0.5mg/week has not started 1mg/weekCurrent Cholesterol Medications:Rosuvastatin 10mg dailyPreviously tried medications & reasons for d/c:Atenolol, glipizide, piogltazone, Trulicity 1.5mg/weekFamily History? 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 (Patient's name and were verified.)[facility] location: homeReason for telephone visit: Patient PreferencePatient consent: patient verbally consented for telephone visitOther staff involved in visit: Christelle eLiva (Machine Precision Etcher) for French interpretation. DM type 2 [facility] clinical pharmacist for the management of DM type 2. SMBG levels: FS Magdi day [id number]: 1686am-12pm: [id number]: 2516pm-12am: 238# of hypoglycemic episodes:Current DM Medications:Metformin ER 1000mg BIDSemglee 42 units at bedtimeOzempic 0.5mg/week Current Cholesterol Medications:Rosuvastatin 10mg dailyPreviously tried medications & reasons for d/c:Atenolol, glipizide, piogltazone, Trulicity 1.5mg/weekFamily History? 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 (Patient's name and were verified.)[facility] location: homeReason for telephone visit: Patient PreferencePatient consent: patient verbally consented for telephone visitOther staff involved in visit: Christelle Leiva (Machine Precision Etcher) for French interpretation. t2dm Follow-up visit RT T2DM. Pt [...] 2,375 - 2,849 kcal/dayCalorie level ranges: Males 8540-3490 calories*Calorie needs vary based on several factors-age, sex, height, weight and physical activity level Protein Males 52-56 grams daily*Protein needs vary based on several factors-age, sex, height, weight and physical activity level Fluid xjyeq-8-5Rfazal or 8- 12 cups of 8oz daily Fiber Male 28-34 grams daily Intervention: -Discussed lab results -Intro to food groups, portion sizes, and plate method -Healthy snacks: fruits, vegetables, nuts, string cheese -Incorporating physical activity to weekly routine-Limiting refined/processed carbohydrates, especially sugar, sweets, and sugar sweetened beverages 1000 Caloric Pattern - Recommended servings based on [employer] [facility] Vegetables: 3 cups/day. Bread, cereal and starches: 7 ounces/day. Protein & other meats: 6 ounces/day. Fruit 2 cups/day Dairy: 3 cups/day. 2400 Caloric Needs- Recommended servings based on [employer] [facility] Vegetables: 3 1/2 cups/day. Bread, cereal and [...] education provided. DM type 2 Follow-up appoin tment with clinical pharmacist for the management of DM type 2. SMBG levels: (using Newsy Magdi 2 but doesn't have his reader to work)Fastin-150s but an go to the 200s.PPG: <278# of hypoglycemic episodes:Current DM Medications:Metformin ER 1000mg BIDSemglee 35 units at bedtimeOzempic 0.5mg/week Current Cholesterol Medications:Rosuvastatin 10mg dailyPreviously tried medications & reasons for d/c:Atenolol, glipizide, piogltazone, Trulicity 1.5mg/weekFamily History? 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 (Patient's name and were verified.)[facility] for telephone visit: Patient PreferencePatient consent: patient verbally consented for telephone visitOther staff involved in visit: Christelle Leiva (Machine Precision Etcher) for French interpretation. 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 (Patient's name and were verified.)Patient location: [facility] location: [facility] for telephone visit: Patient PreferencePatient consent: patient verbally consented for telephone visitOther staff involved in visit: Christelle Leiva (Machine Precision Etcher) for French interpretation. Insulin Teaching Reason for Visi t: Insulin [...] advised to bring during next visit with [facility], Clinical Pharmacist, and PCP. Scheduled blood glucose readings follow-up appointment with [facility]. Flaco [facility] FreeStyle Magdi 2 Se nsor Teaching Reason for Visit: FreeStyle Magdi 2 Sensor and [place] Teaching Patient came in today for a FreeStyle Magdi 2 Sensor and [place] teaching appointment with [facility]. Patient brought in both FreeStyle Magdi 2 Sensor and reader. The patient was instructed to wash hands with soap and water or use hand glass science engineer before applying the FreeStyle Magdi 2 Sensor. The patient was instructed on how to properly use and apply FreeStyle Magdi 2 Sensor and [place]. Reviewed all parts with pt and helped [...] sensor every 2 weeks. Patient verbalized understanding.- [facility]. Karli martinez requesting cholesterol med- patient is out of meds. Shwetha. LVNTelephone visit is conducted per patient's preference. Patient is at home. Provider is in [facility]. Patient has been informed that there are limitations to telephone visits and they can make an in-person visit when desired. Patient verbally consents to the virtual visit. Interpretation language: ARABIC diabetes Managing with: O ral medications. 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 (Patient's name and were verified.)Patient location: homeProvider location: [facility] for telephone visit: Patient PreferencePatient consent: patient verbally consented for telephone visitOther staff involved in visit: Christelle Leiva (Machine Precision Etcher) for French interpretation. DM mgmt Patient location : home Provider location: [facility] Visit Method- telephone/telehealth visit: Patient Preference Patient's [...] 2,375 - 2,849 kcal/dayCalorie level ranges: Males 7465-8582 calories*Calorie needs vary based on several factors-age, sex, height, weight and physical activity level Protein Males 52-56 grams daily*Protein needs vary based on several factors-age, sex, height, weight and physical activity level Fluid jkwgs-0-5Uywwlb or 8- 12 cups of 8oz daily [...] Caloric Needs- Recommended servings based on [employer]plate.gov [facility] Vegetables: 3 1/2 cups/day. Bread, cereal and [...] advised to bring during next visit Scheduled [facility] blood glucose readings F/USContreras [facility] Episodic Patient is here for mri results. [...] to Optometry/Ophthalmology. Photos taken and uploaded to [employer] for review.Last Retinal: Patient reported that he last saw a specialist on May-2023. Patient reported that he has cataracts in both eyes, but he states that the condition is worse in his left eye. DM: Patient reported that he has had DM for approximately 6 years. Insulin: NOFamily Hx of Glaucoma: NO Last A1C:.- 4Continuance of care appointments were made including Welding Setter.Patient advised to contact [facility] for any further questions and/or concerns.Flaco [facility] DM Education Reason for visit : DM [...] but he has very few teststrips remaining. TOOLROOM CLERK sent to PCP. Patient reported that his [...] morning for breakfast.Patient requested a referral with radio/tv technician, and the patient was scheduled an appointment with radio/tv technician. Physical Activity: Recommended patient to exercise 5x/ week for at least 30 mins each time. Patient reported that he currently does no physical activity due to his knee pain. Scheduled patient an appointment with radio/tv technician. Flaco [facility] diabetes The problem is s table. Managing [...] DM here to follow up of labs. knee pain It occurs consta ntly and [...] not improved with NSAIDs or knee sleeve. preventive exam Episodic The symptoms are reported [...] visits.Location of patient: Patient's homeLocation of physician: [facility].New to [facility] here to establish care h/o dm , HTNmeds: Metformin 750mg po bidtenolol 25mg po Glipizide 10mg po bidPioglitazone 30mg po QDsurgery hernia repairfamily history: mother father : htn, dm hyperlipidemia Functional Status Date Functional Assessmen t No Information Instructions Date Instruction Additional Infor estefanía A blood glucose log and medication list [...] knee, current, unspecified tear type, initial encounter Educated patient on complications of DM and [...] complication, without long-term current use of insulin Decrease intake of f ried food, butter, [...] 2 diabetes mellitus without complication, unspecified whether salvage determiner insulin use Education provided c onsiders health [...] 2 diabetes mellitus without complication, unspecified whether salvage determiner insulin use Assessments Type Assessment Date No Information Patient Care Teams Name Effective Dates (start - stop) Status Members No Information
[2024-12-22 01:28] VITALS: BP 190/99; PULSE 75; RESP 20; TEMP 36.6; O2SAT 97; BMI 23.5
[2024-12-22] MEDS: Oxymetazoline HCl 0.05 % Nasal 15 ML SPRAY 2 SPRAY NOSTRIL-B (01:50)
[2024-12-22] MEDS: Lidocaine HCl 1%/Epi 1:100,000 10 ML VIAL INFILTRATI (01:50)
--- NOTE | 2024-12-22 01:56 | ED.GENADULT ---
HPI - General Adult General Chief complaint: Epistaxis Stated complaint: nose bleeds Time Seen by Provider: 12/22/24 01:56 Source: patient Limitations: no limitations History of Present Illness ED Provider: Janiya Madrigal PA-C HPI narrative: 54-year-old male with a history of asthma and seasonal allergies presents with nosebleed. Patient noted bleeding from bilateral nares that occurred 1 hour ago. The patient is not on blood thinners, he did not sustain nasal trauma. Patient denies recent cough or cold symptoms, no fever. Related Data Home Medications ?Medication ?Instructions ?Recorded ?Confirmed albuterol sulfate 90 mcg/actuation 1 inh inhalation QID 12/10/22 03/23/23 aerosol inhaler fluticasone furoate 50 inhalation 12/10/22 03/23/23 mcg/actuation blister powder for inhalation fluticasone propionate 44 1 puff inhalation BID 12/10/22 03/23/23 mcg/actuation HFA aerosol inhaler (Flovent HFA) prednisone 20 mg tablet 20 mg PO DAILY 12/10/22 03/23/23 Previous Rx's ?Medication ?Instructions ?Recorded bisacodyl 5 mg tablet,delayed 20 mg (4 x 5 mg) PO ONCE 03/23/23 release (Dulcolax (bisacodyl)) colonoscopy prep 1 day #4 tabs polyethylene glycol 3350 17 238 g PO ONCE laxative effect 1 03/23/23 gram/dose oral powder (Miralax) day #238 grams Allergies Allergy/AdvReac Type Severity Reaction Status Date / Time No Known Allergies Allergy Verified 12/22/24 01:29 Review of Systems Review of Systems: Yes all other systems are reviewed and are negative Constitutional: Constitutional: Denies fatigue, Denies fever(s) and Denies headache(s) ENT: Denies headache(s), Reports epistaxis, Denies nasal congestion and Denies nasal discharge Cardiovascular: Cardiovascular: Denies dyspnea Respiratory: Respiratory: Denies cough and Denies dyspnea Neurologic: Denies headache(s) Endocrine: Endocrine: Denies fatigue PMFSH Past Medical History Attestation statement: The following information was validated with the patient. Social History Social History Household Members: Family Alcohol intake: never Patient Tobacco Use Status: Former Tobacco user Tobacco use type: Cigarette Smoked in Last 30 Days: No Use of substances other than those prescribed or required for medical reasons: No Advance Directives: No Advance Directives Information Provided: Yes Physical Exam ED Vital Signs: Vital Signs - 24 hr 12/22/24 01:28 12/22/24 02:31 12/22/24 04:20 Temperature 97.9 F 98.9 F Pulse Rate 75 68 98 Respiratory Rate 20 16 Blood Pressure 190/99 H 169/70 H 189/89 H Pulse Oximetry 97 99 Oxygen Delivery Method Room Air Room Air BMI result Body Mass Index 23.5 Const Other: Alert, anxious Orientation/consciousness: patient oriented x3 HENMT Other: Bleeding noted from bilateral nares.......... After trying multiple topical products, the focus of bleeding in the left nare was identified then cauterized Resp Effort & Inspection: normal respiratory effort Cardio Other: Normal peripheral perfusion Skin Other: Warm dry no rash Neuro General: patient oriented x3, gait normal, no focal motor deficits and CN's II-XI intact bilaterally Psych Other: Cooperative Medications Administered Discontinued Medications Generic Name Dose Route Start Last Admin Trade Name Freq PRN Reason Stop Dose Admin Cocaine HCl 4 ml 12/22/24 01:41 12/22/24 02:43 Cocaine Hcl 4 % 4 Ml Solution TOPICAL 12/22/24 01:42 4 ml ONCE ONE Administration Protocol Lidocaine/Epinephrine 10 ml 12/22/24 01:41 12/22/24 01:50 Lidocaine Hcl 1%/Epi 1:100,000 10 Ml Vial INFILTRATI 12/22/24 01:42 10 ml ONCE ONE Administration Oxymetazoline HCl 2 spray 12/22/24 01:41 12/22/24 01:50 Oxymetazoline Hcl 0.05 % Nasal 15 Ml [place] NOSTRIL-B 12/22/24 01:42 2 spray ONCE ONE Administration Procedures Epistaxis Control Time Out Performed: No Nostril: Yes bilateral Nose prepped with: Yes cocaine 4% (Liquid cocaine was utilized in the left naris only, ), Yes lidocaine, Yes oxymetazoline and Yes other (Epinephrine in the lidocaine, was given with the Afrin) Direct inspection: Yes anterior source identified (Subtle source of bleeding noted, was cauterized) Direct inspection method: Yes nasal speculum, Yes headlamp and Yes otoscope Clots removed by: Yes blowing nose and Yes suction Epistaxis treatment: Yes silver nitrate cautery Results of treatment: Yes bleeding controlled Complications: Yes none Medical Decision Making Medical Decision Making MDM Narrative: 54-year-old male with a history of asthma and seasonal allergies presents with nosebleed. Patient noted bleeding from bilateral nares that occurred 1 hour ago. The patient is not on blood thinners, he did not sustain nasal trauma. Patient denies recent cough or cold symptoms, no fever. Problem: Asthma seasonal allergies History: Per patient I have considered the following differential diagnoses: Anterior bleed, posterior bleed, nasal trauma, polyp Plan: My plan is to use minimally invasive interventions, I am trying to avoid the use of rhino rocket. There was no indication for labs or imaging. We will start with the Afrin and packing soaked with lidocaine and epinephrine. I will then escalate to either Tx a or liquid cocaine if his symptoms remain refractory. I will then attempt cautery. Lastly, I will implement the rhino rocket. Differential Diagnosis Differential Diagnoses: The differential diagnosis associated with the presentation includes Admission/Observation Consideration of admission/observation: Escalation of care including admission/observation considered Not applicable Discharge Plan Discharge Clinical Impression: Epistaxis Patient Disposition: Home, Self-Care Instructions: Nosebleed (ED) Additional Instructions: You were treated for nosebleed. See home care instructions. Follow up with your primary care provider as needed. Do not insert your finger into your nostrils, do not excessively or forcefully blow your nose, try not to sneeze. Prescriptions: No Action albuterol sulfate 90 mcg/actuation HFA aerosol inhaler 1 inh inhalation QID fluticasone propionate [Flovent HFA] 44 mcg/actuation HFA aerosol inhaler 1 puff inhalation BID Rx Instructions: administer with spacer fluticasone furoate 50 mcg/actuation blister with device inhalation prednisone 20 mg tablet 20 mg PO DAILY bisacodyl [Dulcolax (bisacodyl)] 5 mg tablet,delayed release (DR/EC) 20 mg PO ONCE 1 Days Qty: 4 0RF Rx Instructions: Day before procedure, prep day Take 4 tablets by mouth upon awakening followed by large glass of water polyethylene glycol 3350 [Miralax] 17 gram/dose powder 238 g PO ONCE 1 Days Qty: 238 0RF Rx Instructions: Take as directed by mouth the day before your procedure. Stand Alone Forms: Work/School Release Interventions: ED Discharge Assessment Last Done: 12/22/24 04:20 Discharge Date/Time: 12/22/24 04:21 Print Language: Ukrainian
--- NOTE | 2024-12-22 01:59 | PC.NURSE ---
pt a&ox4, respirations even and unlabored, pt reports x1 hour of nose bleed, denies trauma to nose and thinners. pt reports he was sleeping when he felt the blood on his face, he attempted to get the bleeding to stop. on arrival, pt noted to be actively bleeding. SAPNA Arredondo at bedside. pt medicated per jun. SAPNA Arredondo aware of htn
--- NOTE | 2024-12-22 02:23 | PC.NURSE ---
pt reports no nose bleeding at this time after treatment.
[2024-12-22 02:31] VITALS: BP 169/70; PULSE 68
[2024-12-22] MEDS: Cocaine HCl 4 % 4 ML SOLUTION TOPICAL (02:43)
--- NOTE | 2024-12-22 02:54 | PC.NURSE ---
pt sneezed and bleeding started again, SAPNA Arredondo at bedside, medicated per mar
[2024-12-22 04:20] VITALS: BP 189/89; PULSE 98; RESP 16; TEMP 37.2; O2SAT 99
== END 2024-12-22 04:21 | disposition home or self-care (01) ==
PROVIDERS: Emergency Provider Emergency Medicine
DX: R04.0 Epistaxis (principal); J45.909 Unspecified asthma, uncomplicated
CPT/HCPCS: 30901; 99284; C9143; J2004

== ENCOUNTER 2025-02-14 12:04 | Outpatient (REF) | payer SELFPAY ==
--- OUTSIDE RECORDS SUMMARY | 2023-11-08 23:25 | XMS_ITS ---
Author Organization Dinesh Hernandez III, MD Address [address] [place] [address] [place] [address] Care Team Providers Care Texturing Machine Fixer Name Role Phone Dr. Dinesh Hernandez III Primary Care Provider [phone] REASON FOR VISIT Reschedule Appointment Request Social History Sex Assigned At : Social History Observation Description Sex Assigned At Male Encounters Encounter Location Date Provider Diagnosis Dinesh Hernandez III, MD [address] [place] [address] [place] [address] 11/09/2023 Dinesh Hernandez Plan Of Treatment Next Appt Details Provider Name:Dinesh Hernandez , 03/28/2025 09:30:00 AM, [address] [place] [address] [place], [address], Progress Notes * ASHLEY HERRERA LDOB: [birth year] (52 yo M)Acc No.[id number]:11/09/2023 Patient: ASHLEY SHARMA :1970 A ge:52 Y S ex:Male Address:[address] [place] [address] [place], [address] * true * Date: Generated for [employer] meyers/Mendy/eTransmitting on: 04/16/2024 02:50 PM EST
--- OUTSIDE RECORDS SUMMARY | 2023-11-08 23:25 | XMS_ITS ---
Author Organization Dinesh Hernandez III, MD Address [address] [place] [address] [place] [address] Care Team Providers Care Pipe Stripper Name Role Phone Dr. Dinesh Hernandez III Primary Care Provider [phone] REASON FOR VISIT Cancel Appointment Request Social History Sex Assigned At : Social History Observation Description Sex Assigned At Male Encounters Encounter Location Date Provider Diagnosis Dinesh Hernandez III, MD [address] [place] [address] [place] [address] 11/09/2023 Diensh Hernandez Plan Of Treatment Next Appt Details Provider Name:Dinesh Hernandez , 03/28/2025 09:30:00 AM, [address] [place] [address] [place], [address], Progress Notes * ASHLEY HERRERA LDOB: [birth year] (53 yo M)Acc No.[id number]:11/09/2023 Patient: ASHLEY SHARMA :1970 A ge:52 Y S ex:Male Address:[address] [place] [address], [address] * true * Date: Generated for [employer] meyers/Mendy/eTransmitting on: 04/16/2024 02:51 PM EST
--- OUTSIDE RECORDS SUMMARY | 2023-11-10 04:45 | XMS_ITS ---
Author Organization Dinesh Hernandez III, MD Address [address] [place] [address] [place] [address] Care Team Providers Care Plant Technician Name Role Phone Dr. Dinesh Hernandez III Primary Care Provider REASON FOR VISIT New Refill Request Social History Sex Assigned At : Social History Observation Description Sex Assigned At Male Encounters Encounter Location Date Provider Diagnosis Dinesh Hernandez III, MD [address] [place] [address] [place] [address] 11/10/2023 Dinesh Hernandez Plan Of Treatment Next Appt Details Provider Name:Dinesh Hernandez , 03/28/2025 09:30:00 AM, [address] [place] [address] [place], [address], Progress Notes * ASHLEY HERRERA LDOB: [birth year] (52 yo M)Acc No.[id number]:11/10/2023 Patient: ASHLEY SHARMA :1970 A ge:52 Y S ex:Male Address:[address] [place] [address], [phone] * true * Date: Generated for [employer] meyers/Mendy/eTransmitting on: 04/16/2024 02:51 PM EST
--- OUTSIDE RECORDS SUMMARY | 2023-11-10 05:27 | XMS_ITS ---
Author Organization Dinesh Hernandez III, MD Address [address] [place] [address] [place] [address] Care Team Providers Care Laboratory Monitor Name Role Phone Dr. Dinesh Hernandez III Primary Care Provider [phone] REASON FOR VISIT needs refill of albuterol inhaler Medications Medication SIG (Take, Route, Frequency, Duration) Notes Start Date End Date Status Albuterol Sulfate HFA 108 (90 Base) MCG/ACT 1 puff as needed Inhalation every 4 hrs for 30 days Active Social History Sex Assigned At : Social History Observation Description Sex Assigned At Male Encounters Encounter Location Date Provider Diagnosis Dinesh Hernandez III, MD [address] [place] [address] [place] [address] 11/10/2023 Dinesh Hernandez Annual physical exam Z00.00 Assessments Encounter Date Diagnosis (ICD Code) Assessment Notes Treatment Notes Treatment Clinical Notes 11/10/2023 Annual physical exam (ICD-10 - Z00.00) He is healthy and well, and had a normal weight. His blood pressure was slightly high. He rises from sleep several times at night. We have addressed these issues. Plan Of Treatment Medication Medication Name Sig Start Date Stop Date Notes Albuterol Sulfate HFA 108 (9 0 Base) MCG/ACT 1 puff as needed Inhalation every 4 hrs for 30 days Next Appt Details Provider Name:Dinesh Hernandez , 03/28/2025 09:30:00 AM, [address] [place] [address] [place], [address], Progress Notes * ASHLEY HERRERA LDOB: [birth year] (52 yo M)Acc No.[id number]:11/10/2023 Patient: ASHLEY SHARMA :1970 A ge:52 Y S ex:Male Address:[address] [place] [address], [phone] * Refills Refill Albuterol Sulfate HFA Aerosol Solution, 108 (90 Base) MCG/ACT, Inhalation, 1, 1 puff as needed, every 4 hrs, 30 days, Refills=11 Subjective: * Chief Complaints: * N eeds refill of albuterol inhaler * Medical History: * Surgical History: * Hospitalization/Major Diagno stic Procedure: * Medications: Objective: Assessment: * Assessment: 1. A nnual physical exam - Z00.00, He is healthy and well, and had a normal weight. His blood pressure was slightly high. He rises from sleep several times at night. We have addressed these issues. Plan: * Treatment: * Procedure Codes: * true * Date: Generated for [employer] meyers/Mendy/Elisabethitting on: 04/16/2024 02:51 PM EST
--- OUTSIDE RECORDS SUMMARY | 2023-11-11 13:00 | XMS_ITS ---
Author Organization Dinesh Hernandez III, MD Address [address] [place] [address] [place] [address] Care Team Providers Care Wind Energy Mechanic Name Role Phone Dr. Dinesh Hernandez III Primary Care Provider [phone] REASON FOR VISIT annual exam Social History Sex Assigned At : Social History Observation Description Sex Assigned At Male Encounters Encounter Location Date Provider Diagnosis Dinesh Hernandez III, MD [address] [place] [address] [address] [place] [place] [address] 2023 Dinesh Hernandez Plan Of Treatment Next Appt Details Provider Name:Dinesh Hernandez , 03/28/2025 09:30:00 AM, [address] [place] [address] [place], [address], Progress Notes * ASHLEY HERRERA LDOB: [birth year] (54 yo M)Acc No.[id number]:2023 Progress Notes Patient: ASHLEY SHARMA Provider: Shamir Hernandez MD :1970 A ge:52 Y S ex:Male Date:2023 Address:[address] [place] [id number] Subjective: * Chief Complaints: * 1 . Annual exam. * Medical History: Objective: * Vitals: Assessment: Plan: * Treatment: * Images: * The named appointment provid er may or may not be the originator of this progress note, and it is not deemed complete until electronically signed by the appointment provider. Sign off status: Pending * Provider: Shamir Hernandez MD Date: 0 2023 Generated for [employer] meyers/Mendy/Mitesh on: 04/16/2024 02:50 PM EST
--- OUTSIDE RECORDS SUMMARY | 2024-03-15 11:05 | XMS_ITS ---
Author Organization Dinesh Hernandez III, MD Address [address] [place] [address] [place] [address] Care Team Providers Care Gastroenterology Physician Name Role Phone Dr. Dinesh Hernandez III Primary Care Provider [phone] Reason For Referral Reason Evaluate and Treat Diagnosis 1 Hearing loss (H91.90 ) Referral Organization Dinesh Hernandez III, MD Referring Provider First Name Dinesh Referring Provider Last Name Mary Referring Provider Speciality Internal M edicine Referred Provider [facility] Referred Provider Specialty Audiologists General Notes D, Elizabeth 03/15/2024 04:22:58 PM > Referral faxed and patient scheduled appointment with office directly Referral Priority Routine Referral Appointment Date 05/16/2024 REASON FOR VISIT Referral Social History Sex Assigned At : Social History Observation Description Sex Assigned At Male Encounters Encounter Location Date Provider Diagnosis Dinesh Hernandez III, MD [address] [place] [address] [place] [address] 03/15/2024 Dinesh Hernandez Plan Of Treatment Referrals Referral Date Details 03/15/2024 03/15/2024, Evaluate and Treat, and [facility] Next Appt Details Provider Name:Dinesh Hernandez , 03/28/2025 09:30:00 AM, [address] [place] [address] [place], [address], Progress Notes * ASHLEY HERRERA LDOB: [birth year] (53 yo M)Acc No.[id number]:03/15/2024 Patient: Keila ASHLEY LUDWIG :1970 A ge:53 Y S ex:Male Address:[address] [place] [address] [place], [address] Subjective: * Chief Complaints: * R eferral * Medical History: * Surgical History: * Hospitalization/Major Diagno stic Procedure: * Medications: Objective: * Vitals: * Physical Examination: Assessment: Plan: * Treatment: * Procedure Codes: * true * Date: Generated for [employer] meyers/Mendy/Paulsmitting on: 04/16/2024 02:51 PM EST Consultation Request Notes Referral Date Referring Provider Referred Provider Not es 03/15/2024 Dinesh Hernandez WhartonJesenia Loera Evaluate and Treat
--- OUTSIDE RECORDS SUMMARY | 2024-03-24 04:30 | XMS_ITS ---
Author Organization Dinesh Hernandez III, MD Address [address] [place] [address] Care Team Providers Care Supervisor Parking Lot Name Role Phone Dr. Dinesh Hernandez III Primary Care Provider Allergies Allergen (clinical drug ingredient) Drug/Non Drug Allergy documented on EMR Reaction Allergy Type Onset Date Status No Known Drug Allergy Unknown Drug Allergy Active Results Component Value Reference Range Notes URINE DIP STICK Reviewed date:03/24/2024 09:32:30 AM Interpretation: Performing Lab: Notes/Report: SG 1.020 1.005 - 1.025 pH 5.0 5.0 - 9.0 ALINE Negative Negative - NIT Negative Negative - PRO 30 Negative - Trace GLU Negative Negative - KET 5 Negative - UBG 0.2 0.1 - 1.8 CHAO 1 0.2 - 1.3 BLD 50 Negative - REASON FOR VISIT Annual Exam Medications Medication SIG (Take, Route, Frequency, Duration) Notes Start Date End Date Status Albuterol Sulfate HFA 108 (90 Base) MCG/ACT 1 puff as needed Inhalation every 4 hrs Active Social History Tobacco Use: Social History Observation Description Date Details (start date - stop date) Former Smoker NA - NA Sex Assigned At : Social History Observation Description Sex Assigned At Male Tobacco Use/Smoking Question Answer Notes Patient is a former smoker Tobacco Control (Standard) Question Answer Notes Tobacco use: Former smoker How long has it been since you last smoked? Grea ter than 10 years Additional Findings: Tobacco non-user Ex-cigaret te smoker AUDIT-C (Standard) Question Answer Notes Did you have a drink containing alcohol in the p ast year? No Points 0 Interpretation Negative Vital Signs Temperature 98.1 degrees Fahrenheit 03/24/20 24 Blood pressure systolic 135 mm Hg 03/24/20 24 Blood pressure diastolic 80, 138 mm Hg 024 Heart Rate 84 /min 03/24/2024 Height 68 in 03/24/2024 Weight 152 lbs 03/24/2024 BMI 23.11 kg/m2 03/24/2024 Encounters Encounter Location Date Provider Diagnosis Dinesh Hernandez III, MD [address] [place] [address] [place] [address] 03/24/2024 Dinesh Hernandez BPH (benign prostati c hyperplasia) N40.0 ; Hearing loss H91.90 ; Asthma J45.909 ; Former smoker Z87.891 ; Multiple environmental allergies Z91.09 ; Allergic rhinitis J30.9 and Colonoscopy refused Z53.20 Assessments Encounter Date Diagnosis (ICD Code) Assessment Notes Treat ment Notes Treatment Clinical Notes 03/24/2024 BPH (benign prostatic hyperplasia) (ICD-10 - N40.0) He rises from sleep at most once a night to urinate. We have discussed lifestyle modifications he can make to reduce nocturia. He denies dysuria or hematuria. 03/24/2024 Hearing loss (ICD-10 - H91.90) He has made an appointment to go to an crankshaft straightener to get hearing aids. Examination of his ears today was unremarkable 03/24/2024 Asthma (ICD-10 - J45.909) He has had no wheezing since his last visit. He denies any recent allergies. 03/24/2024 Former smoker (ICD-10 - Z87.891) He is strongly motivated not to smoke. He has a plan to prevent relapse in times of stress. 03/24/2024 Multiple environmental allergies (ICD-10 - Z91.09) He will use antihistamines as needed as well as fluticasone. He will call me if he needs prescription medication. 03/24/2024 Allergic rhinitis (ICD-10 - J30.9) He had only a few sniffles during pollen season this spring. He usually experiences rhinitis, more in the fall and we discussed various therapies. He could pursue. 03/24/2024 Colonoscopy refused (ICD-10 - Z53.20) In the past he did not want to have a colonoscopy. After we discussed it again today he did agree to the procedure and he was referred to gastroenterology. Plan Of Treatment Medication Medication Name Sig Start Date Stop Date Notes Albuterol Sulfate HFA 108 (9 0 Base) MCG/ACT 1 puff as needed Inhalation every 4 hrs Pending Test Test Name Order Date PROFILE, FASTING (COMPREHENSIVE METABOLI C) 03/24/2024 PSA, TOTAL 03/24/2024 CBC w DIFF 03/24/2024 Lipid Panel 03/24/2024 Next Appt Details Follow Up: 6 Months, In six months, Reason: ov no tests, Regular Checkup Provider Name:Dinesh Hernandez , 03/28/2025 09:30:00 AM, [address] [place] [address] DR, [place] [address], [place], [address], Progress Notes * ASHLEY HERRERA LDOB: [birth year] (53 yo M)Acc No.[id number]:03/24/2024 Progress Notes Patient: ASHLEY SHARMA Provider: Shamir Hernandez MD :1970 A ge:53 Y S ex:Male Date:03/24/2024 Address:[address] [place], [place] [id number] Subjective: * Chief Complaints: * A nnual Exam * HPI: D epression Screening: PHQ-9 L ittle interest or pleasure in doing things?Not at all F eeling down, depressed, or hopeless N ot at all T rouble falling or staying asleep, or sleeping too much N ot at all F eeling tired or having little energy N ot at all P oor appetite or overeating N ot at all F eeling bad about yourself or that you are a failure, or have let yourself or your family down N ot at all T rouble concentrating on things, such as reading the newspaper or watching television N ot at all M oving or speaking so slowly that other people could have noticed; or the opposite, being so fidgety or restless that you have been moving around a lot more than usual N ot at all T houghts that you would be better off or of hurting yourself in some way N ot at all T otal Score 0 C OVID-19 Screening: Questions H ave you had any new onset fever, chills, cough, congestion, sore throat, shortness of breath, muscle aches? N o S MANDY Questions: SDOH Questions I n the past year have you been worried about losing your housing? N o I n the past year have you or any family members you live with been unable to get any of the following when it was really needed? Check all that apply: N one * : The patient, a 53-year-old male, presented with complaints of hearing loss and knee pain. He reported that he has difficulty hearing people, especially when they are in front of him. He mentioned that his left ear is better than the right one, but both are affected. He has already scheduled an appointment for a hearing aid. 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 The pain is more pronounced when he gets home after work, but his knees feel okay in the morning. He also mentioned that his knees do not hurt when he is not working on weekends. 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 C hills d enies. F atigue a dmits. F ever d enies. E NT: Decreased hearing i n both ears. R espiratory: Cough d enies. C ardiovascular: Chest pain with exertion d enies. D yspnea on exertion?denies. S hortness of breath d enies. G astrointestinal: Constipation o ccasional. D ecreased appetite d enies. D iarrhea d enies. H eartburn d enies. N ausea d enies. R ectal bleeding d enies. V omiting d enies. H ematology: bruising d enies. p etechiae d enies. S wollen glands n one have been noted. G enitourinary: Frequent urination o nce a night. M usculoskeletal: Muscle aches d enies. P ainful joints d enies. S ciatica d enies. W eakness d enies. S kin: Itching d enies. R lyndon d enies. S kin lesion(s)?denies. N eurologic: Difficulty speaking d enies. D izziness d enies.?Headache d enies. L ow back pain d enies. P sychiatric: Depressed mood d enies. * Medical History: * Surgical History: l aceration tip right fourth finger requiring skin graft 1981age 9 left breast skin donor scar No history * Hospitalization/Major Diagno stic Procedure: N o history * Family History: F ather: 62 yrs, Cause of unknown. M other: 63 yrs, Cause of unknown, diagnosed with HTN. C hildren: alive. S iblings: alive. 4 brother(s) , 1 sister(s) . 1 son(s) , 1 daughter(s) - healthy. . His sister has hypertension. His brothers have asthma and hypertension and diabetes. His 2 children are alive and healthy and well. They are Ashley and Lora. * Social History: T obacco Use: T obacco Use/Smoking P atient is a f ormer smoker Tobacco Control (Standard) T obacco use: F ormer smoker H ow long has it been since you last smoked??Greater than 10 years A dditional Findings: Tobacco non-user E x-cigarette smoker D rugs/Alcohol: D rugs H ave you used drugs other than those for medical reasons in the past 12 months? N o D rug/Alcohol: A RONNIE-C (Standard) D id you have a drink containing alcohol in the past year? N o P oints 0 I nterpretation N egative Reyna caballero was born in [place], [place]. He has been to [place] for 20 years. He has 2 healthy children. 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 * Medications: T akingAlbuterol Sulfate HFA 108 (90 Base) MCG/ACT Aerosol Solution 1 puff as needed Inhalation every 4 hrs Medication List reviewed and reconciled with the patientTaking Albuterol Sulfate HFA 108 (90 Base) MCG/ACT Aerosol Solution 1 puff as needed Inhalation every 4 hrs Medication List reviewed and reconciled with the patient * Allergies: N o Known Drug Allergyno[Allergies Verified] Objective: * Vitals: H t: 68, Wt: 152, BMI:23.11, BP: 135/80,138/70, HR: 84, Temp: 98.1, Wt-k.95. * Examination: G eneral Examination: GENERAL APPEARANCE: p kassy, well nourished, well developed, in no acute distress, calm and relaxed, man. HEAD: a traumatic, normocephalic. EYES: e alysha, perrla, anicteric, conjugate. EARS: N ormal anatomy with significant bilateral hearing loss. NOSE: s eptum intact. ORAL CAVITY: n ormal, unremarkable. NECK/THYROID: n o jugular venous distention, no carotid bruit, thyroid normal. LYMPH NODES: n o enlarged lymph nodes,spleen normal. SKIN: n o suspicious lesions, anicteric. HEART: n o clicks, gallops, murmurs, or rubs, regular rhythm, S1, S2 normal, no s3, or vascular bruits. LUNGS: c lear to auscultation . BREASTS: no masses palpable bilaterally. ABDOMEN: b owel sounds normal, no ascites, no organomegaly, no mass. RECTAL EXAM: Reyna caballero was referred for a colonoscopy. MUSCULOSKELETAL: e xtremities unremarkable, no clubbing, cyanosis or edema. PERIPHERAL PULSES: n ormal. NEUROLOGIC: a lert and oriented, cranial nerves 2-12 grossly intact, deep tendon reflexes 2+ symmetrical, motor strength normal upper and lower extremities, sensory exam intact. PSYCH: a lert, oriented, thought process logical, goal directed, speech clear, mood/affect full range, judgement and insight good, good eye contact, cooperative with exam, cognitive function intact. - : { 'Eardrum':'Normal', 'Lungs': 'Fine', 'Heart': 'Regular rhythm, no leaking valves', 'Abdomen': 'No pain', 'Knees': 'No swelling or grinding'}. Assessment: * Assessment: 1. H earing loss - H91.90 (Primary) N otes :He has made an appointment to go to an crankshaft straightener to get hearing aids. Examination of his ears today was unremarkable 2 . B PH (benign prostatic hyperplasia) - N40.0 N otes :He rises from sleep at most once a night to urinate. We have discussed lifestyle modifications he can make to reduce nocturia. He denies dysuria or hematuria. 3 . A sthma - J45.909 N otes :He has had no wheezing since his last visit. He denies any recent allergies. 4 . F ormer smoker - Z87.891 N otes :He is strongly motivated not to smoke. He has a plan to prevent relapse in times of stress. 5 . M ultiple environmental allergies - Z91.09 N otes :He will use antihistamines as needed as well as fluticasone. He will call me if he needs prescription medication. 6 . A llergic rhinitis - J30.9 N otes :He had only a few sniffles during pollen season this spring. He usually experiences rhinitis, more in the fall and we discussed various therapies. He could pursue. 7 . C olonoscopy refused - Z53.20 N otes :In the past he did not want to have a colonoscopy. After we discussed it again today he did agree to the procedure and he was referred to gastroenterology. Plan: * Treatment: 2. A sthma L AB: PROFILE, FASTING (COMPREHENSIVE METABOLIC) L AB: PSA, TOTAL L AB: CBC w DIFF L AB: Lipid Panel 3. O thers Continue Albuterol Sulfate HFA Aerosol Solution, 108 (90 Base) MCG/ACT, 1 puff as needed, Inhalation, every 4 hrs. * Labs: * L ab: URINE DIP STICK (Collection Date & Time - 03/24/2024) Value Reference Range S G 1.020 1.005 - 1.025 * p H 5.0 5.0 - 9.0 * L EU Negative Negative - * N IT Negative Negative - * P RO 30 Negative - Trace * G CHRISTA Negative Negative - * K ET 5 Negative - * U BG 0.2 0.1 - 1.8 * B IL 1 0.2 - 1.3 * B LD 50 Negative - * Procedure Codes: 8 1002 URINE-NO MICRO * Preventive Medicine: Counseling: S moking/Tobacco Use Patient counseled on the dangers of tobacco use and urged to quit. 1 05/25/2023 * Follow Up: 6 Months, In six months (Reason: ov no tests, Regular Checkup) * Images: * Sign off status: Completed true * Provider: Shamir Hernandez MD Date: 05/25/2023 Generated for Magnolia meyers/Mendy/Mitesh on: 04/16/2024 02:51 PM EST History and Physical Notes * HPI (History of Present Illness) Category Sub-Category Detail Notes Depression Screening PHQ-9 Little inte rest or pleasure in doing things: Not at all Feeling down, depressed, or hopeless: No t at all Trouble falling or staying asleep, or sl eeping too much: Not at all Feeling tired or having little energy: N ot at all Poor appetite or overeating: Not at all Feeling bad about yourself o r that you are a failure, or have let yourself or your family down: Not at all Trouble concentrating on thi ngs, such as reading the newspaper or watching television: Not at all Moving or speaking so slowly that other people could have noticed; or the opposite, being so fidgety or restless that you have been moving around a lot more than usual: Not at all Thoughts that you would be b bert off or of hurting yourself in some way: Not at all Total Score: 0 COVID-19 Screening Questions Have you had any new onset fever, chills, cough, congestion, sore throat, shortness of breath, muscle aches?: No SDOH Questions SDOH Questions In the past year have you been worried about losing your housing?: No In the past year have you or any family members you live with been unable to get any of the following when it was really needed? Check all that apply:: None Examination Category Sub-Category Detail Notes General Examination GENERAL APPEARANCE: pleasant , well nourished, well developed, in no acute distress, calm and relaxed, man HEAD: atraumatic, normocep halic EYES: eomi, perrla, anicte cindy, conjugate EARS: Normal anatomy with significant bilateral hearing loss NOSE: septum intact NECK/THYROID: no jugular venous di stention, no carotid bruit, thyroid normal HEART: no clicks, gallops, murmurs, or rubs, regular rhythm, S1, S2 normal, no s3, or vascular bruits LUNGS: clear to auscultatio n ABDOMEN: bowel sounds normal, no ascites, no organomegaly, no mass NEUROLOGIC: alert and oriented, cranial nerves 2-12 grossly intact, deep tendon reflexes 2+ symmetrical, motor strength normal upper and lower extremities, sensory exam intact SKIN: no suspicious lesion s, anicteric PERIPHERAL PULSES: normal BREASTS: no masses palpable b ilaterally MUSCULOSKELETAL: extremities unremark able, no clubbing, cyanosis or edema LYMPH NODES: no enlarged lymph no eduardo,spleen normal RECTAL EXAM: He was referred for a colonoscopy PSYCH: alert, oriented, tho ught process logical, goal directed, speech clear, mood/affect full range, judgement and insight good, good eye contact, cooperative with exam, cognitive function intact ORAL CAVITY: normal, unremarkable
--- OUTSIDE RECORDS SUMMARY | 2024-10-06 04:30 | XMS_ITS ---
Author Organization Dinesh Hernandez III, MD Address [address] [place] [address] [place] [address] Care Team Providers Care Boy'S Adviser Name Role Phone Dr. Dinesh Hernandez III Primary Care Provider Allergies Allergen (clinical drug ingredient) Drug/Non Drug Allergy documented on EMR Reaction Allergy Type Onset Date Status No Known Drug Allergy Unknown Drug Allergy Active REASON FOR VISIT Hearing loss, Knee pain, Allergies, Asthma Medications Medication SIG (Take, Route, Frequency, Duration) Notes Start Date End Date Status Albuterol Sulfate HFA 108 (90 Base) MCG/ACT 1 puff as needed Inhalation every 4 hrs Active Social History Tobacco Use: Social History Observation Description Date Details (start date - stop date) Former Smoker NA - NA Sex Assigned At : Social History Observation Description Sex Assigned At Male Tobacco Control (Standard) Question Answer Notes Tobacco use: Former smoker How long has it been since you last smoked? Grea ter than 10 years Additional Findings: Tobacco non-user Ex-cigaret te smoker Problems Problem Type SNOMED Code ICD Code Onset Dates Problem Status W/U Status Risk Notes Problem [id number] Colonoscopy refused (Z53.20) Active confirmed In the past he did not want to have a colonoscopy . After we discussed it again today he did agree to the procedure and he was referred to gastroenter ology. Vital Signs Temperature 98.2 degrees Fahrenheit 10/07/19 25 Blood pressure systolic 135 mm Hg 10/07/19 25 Blood pressure diastolic 76 mm Hg 025 Heart Rate 78 /min 10/06/2024 Height 68 in 10/06/2024 Weight 148 lbs 10/06/2024 BMI 22.5 kg/m2 10/06/2024 Encounters Encounter Location Date Provider Diagnosis Dinesh Hernandez III, MD [address] [place] [address] [address] [place], [place] [id number] 10/06/2024 Dinesh Soaresrne Asthma J45.909 ; Colonoscopy refused Z53.20 ; Former smoker Z87.891 ; Multiple environmental allergies Z91.09 ; Hearing loss H91.90 and BPH (benign prostatic hyperplasia) N40.0 Assessments Encounter Date Diagnosis (ICD Code) Assessment Notes Treat ment Notes Treatment Clinical Notes 10/06/2024 Asthma (ICD-10 - J45.909) He has had no wheezing since his last visit. He denies any recent allergies. 10/06/2024 Colonoscopy refused (ICD-10 - Z53.20) In the past he did not want to have a colonoscopy. After we discussed it again today he did agree to the procedure and he was referred to gastroenterology. 10/06/2024 Former smoker (ICD-10 - Z87.891) He is strongly motivated not to smoke. He has a plan to prevent relapse in times of stress. 10/06/2024 Multiple environmental allergies (ICD-10 - Z91.09) He will use antihistamines as needed as well as fluticasone. He will call me if he needs prescription medication. 10/06/2024 Hearing loss (ICD-10 - H91.90) He has made an appointment to go to an [facility] to get hearing aids. Examination of his ears today was unremarkable 10/06/2024 BPH (benign prostatic hyperplasia) (ICD-10 - N40.0) He rises from sleep at most once a night to urinate. We have discussed lifestyle modifications he can make to reduce nocturia. He denies dysuria or hematuria. Plan Of Treatment Medication Medication Name Sig Start Date Stop Date Notes Albuterol Sulfate HFA 108 (9 0 Base) MCG/ACT 1 puff as needed Inhalation every 4 hrs Pending Test Test Name Order Date PROFILE, FASTING (COMPREHENSIVE METABOLI C) 10/06/2024 PSA, TOTAL 10/06/2024 CBC w DIFF 10/06/2024 Lipid Panel 10/06/2024 Next Appt Details Follow Up: As Scheduled, Alesha son: Annual Exam Provider Name:Dinesh Hernandez , 03/28/2025 09:30:00 AM, [address] [place] [address] [address], [place], [phone], Progress Notes * ASHLEY HERRERA LDOB: [birth year] (53 yo M)Acc No.[id number]:10/06/2024 Progress Notes Patient: ASHLEY SHARMA Provider: Shamir Hernandez MD :1970 A ge:53 Y S ex:Male Date:10/06/2024 Address:[address] [place] [address], [id number] Subjective: * Chief Complaints: * H earing lossKnee painAllergiesAsthma * HPI: C OVID-19 Screening: He returns for his 6 month scheduled visit. He did well during the recent pollen season with only minimal allergies he took medication a couple of days. His bilateral knee pain has resolved. He is experiencing nocturia usually once a night.? He has had no chest pain or shortness of breath or bleeding. He has had no recent asthma. His hearing loss is the same. He says he feels healthy and well. Questions H ave you had any new onset fever, chills, cough, congestion, sore throat, shortness of breath, muscle aches? N o * ROS: G eneral/Constitutional: pain o nly normal aches and pains. C hills d enies.?Fatigue a dmits. F ever d enies. E [...] enies. S kin: Itching d enies. R lyndno d enies. S kin lesion(s)?denies. N eurologic: [...] Social History: T obacco Use: T obacco Control (Standard) T obacco use: F ormer smoker H ow long has it been since you last smoked??Greater than 10 years A dditional Findings: Tobacco non-user E x-cigarette smoker Reyna caballero was born in [place], [place]. He has been to [place] for 20 years. He has 2 healthy children. 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 * Medications: T akingAlbuterol Sulfate HFA 108 [...] Objective: * Vitals: H t: 68, Wt: 148, BMI:22.5, BP: 135/76, HR: 78, Temp: 98.2, Wt-k.13. * Examination: G eneral Examination: GENERAL APPEARANCE: p leasant, well nourished, well developed, in no acute distress, calm and relaxed, man. HEAD: a traumatic, normocephalic. EYES: e alysha, perrla, anicteric, conjugate. EARS: n ormal. NOSE: s eptum intact. ORAL CAVITY: n ormal, unremarkable. NECK/THYROID: n o jugular venous distention, no carotid bruit, thyroid normal. LYMPH NODES: n o enlarged lymph nodes,spleen normal. SKIN: n o suspicious lesions, anicteric. HEART: n o clicks, gallops, murmurs, or rubs, regular rhythm, S1, S2 normal, no s3, or vascular bruits. LUNGS: c lear to auscultation, good air movement, no wheezes, rales, rhonchi. BREASTS: no masses palpable bilaterally. ABDOMEN: b owel sounds normal, no ascites, no organomegaly, no mass. RECTAL EXAM: n ot examined. MUSCULOSKELETAL: e xtremities unremarkable, no clubbing, cyanosis or edema, Range of motion is normal. PERIPHERAL PULSES: n ormal. NEUROLOGIC: a lert and oriented, cranial nerves 2-12 grossly intact, deep tendon reflexes 2+ symmetrical, motor strength normal upper and lower extremities, sensory exam intact. PSYCH: a lert, oriented. Assessment: * Assessment: 1. A sthma - J45.909 (Primary) N otes :He has had no wheezing since his last visit. He denies any recent allergies. 2 . C olonoscopy refused - Z53.20 N otes :In the past he did not want to have a colonoscopy. After we discussed it again today he did agree to the procedure and he was referred to gastroenterology. 3 . F ormer smoker - Z87.891 N otes :He is strongly motivated not to smoke. He has a plan to prevent relapse in times of stress. 4 . M ultiple environmental allergies - Z91.09 N otes :He will use antihistamines as needed as well as fluticasone. He will call me if he needs prescription medication. 5 . H earing loss - H91.90 N otes :He has made an appointment to go to an [facility] to get hearing aids. Examination of his ears today was unremarkable 6 . B PH (benign prostatic hyperplasia) - N40.0 N otes :He rises from sleep at most once a night to urinate. We have discussed lifestyle modifications he can make to reduce nocturia. He denies dysuria or hematuria. Plan: * Treatment: 2. B PH (benign prostatic hyperplasia) L AB: PROFILE, FASTING (COMPREHENSIVE METABOLIC) L AB: PSA, TOTAL L AB: CBC w DIFF L AB: Lipid Panel 3. O thers Continue Albuterol Sulfate HFA Aerosol Solution, 108 (90 Base) MCG/ACT, 1 puff as needed, Inhalation, every 4 hrs. * Procedure Codes: * Preventive Medicine: Counseling: S moking/Tobacco Use Patient counseled on the dangers of tobacco use and urged to quit. 0 10/05/2024 * Follow Up: A s Scheduled (Reason: Annual Exam) * Images: * Sign off status: Completed true * Provider: Shamir Hernandez MD Date: 0 10/06/2024 Generated for Magnolia meyers/Mendy/eTkaylynsmitting on: 04/16/2024 02:51 PM EST History and Physical Notes * HPI (History of Present Illness) Category Sub-Category Detail Notes COVID-19 Screening Questions Have you had any new onset fever, chills, cough, congestion, sore throat, shortness of breath, muscle aches?: No Examination Category Sub-Category Detail Notes General Examination GENERAL APPEARANCE: pleasant , well nourished, well developed, in no acute distress, calm and relaxed, man HEAD: atraumatic, normocep halic EYES: eomi, perrla, anicte cindy, conjugate EARS: normal NOSE: septum intact NECK/THYROID: no jugular venous di stention, no carotid bruit, thyroid normal HEART: no clicks, gallops, murmurs, or rubs, regular rhythm, S1, S2 normal, no s3, or vascular bruits LUNGS: clear to auscultatio n, good air movement, no wheezes, rales, rhonchi ABDOMEN: bowel sounds normal, no ascites, no organomegaly, no mass NEUROLOGIC: alert and oriented, cranial nerves 2-12 grossly intact, deep tendon reflexes 2+ symmetrical, motor strength normal upper and lower extremities, sensory exam intact SKIN: no suspicious lesion s, anicteric PERIPHERAL PULSES: normal BREASTS: no masses palpable b ilaterally MUSCULOSKELETAL: extremities unremark able, no clubbing, cyanosis or edema, Range of motion is normal LYMPH NODES: no enlarged lymph no eduardo,spleen normal RECTAL EXAM: not examined PSYCH: alert, oriented ORAL CAVITY: normal, unremarkable
--- OUTSIDE RECORDS SUMMARY | 2025-02-14 14:51 | XMS_ITS | Patient Health Record ---
Author Organization Dinesh Hernandez III, MD Address [address] [place] [address] [place] [address] Care Team Providers Care Section Gang Worker Name Role Phone Dr. Dinesh Hernandez III Primary Care Provider [phone] Allergies Allergen (clinical drug ingredient) Drug/Non Drug [...] 0.2 - 1.3 BLD 50 Negative - Complete Blood Count Auto Di ff Reviewed date:01/30/2025 04:43:16 AM Interpretation: Performing Lab:[facility], [address] [place] [phone] Notes/Report: White Blood Count 6.3 4.8-10.8 X10*3/uL Red Blood Count 5.19 4.60-5.80 X10*6/uL Hemoglobin 16.0 14.0-18.0 g/dl Hematocrit 46.8 42.0-52.0 % Mean Corpuscular Volume 90.2 80.0-98.0 fL Mean Corpuscular Hemoglobin 30.8 27.0-33.0 pg Mean Corpuscular HGB Conc 34.2 31.0-36.0 g/dl Red Cell Distribution Width 12.0 11.0-16.0 % Platelet Count 191 160-400 X10*3/uL Mean Platelet Volume 10.8 9.4-12.4 fL Neutrophils Percent Auto 53.4 45-73 % Imm Gran Pct Auto 0.3 0.0-0.4 % Lymphocytes Percent Auto 30.1 20-40 % Monocytes Percent Auto 7.4 2-11 % Eosinophils Percent Auto 7.8 0-4 % Basophils Percent Auto 1.0 0-2 % NRBC Pct Auto 0.0 0.0-0.2 /100WBC Neutrophils Absolute Auto 3.3 2.0-8.3 x10*3/u L Imm Gran Abs Auto 0.02 0.00-0.03 X10*3/uL Lymphocytes Absolute Auto 1.9 1.2-4.9 X10*3/u L Monocytes Absolute Auto 0.5 0.1-1.2 X10*3/uL Eosinophils Absolute Auto 0.5 0.0-0.4 X10*3/u L Basophils Absolute Auto 0.1 0.0-0.2 X10*3/uL NRBC Abs Auto 0.000 0.0-0.012 X10*3/uL Comprehensive Acton. Panel Fa st Reviewed date:01/30/2025 04:43:16 AM Interpretation: Performing Lab:[facility], [address] [place] [phone] Notes/Report: Sodium 140 135-145 mmol/L Potassium 4.1 3.3-5.1 mmol/L Chloride 107 96-108 mmol/L Carbon Dioxide 28 22-29 mmol/L Anion Gap 9 12-20 Blood Urea Nitrogen 12 9-16 mg/dL Creatinine 0.80 0.5-1.4 mg/dL Estimated Glomerular Filt Rate > 60 Chronic Kidney Disease: Estimated GFR < 60 mL/min/1.73m2 Severe Kidney Disease: Estimated GFR < 15 mL/min/1.73m2 Glucose Fasting 99 60-99 mg/dL Calcium 9.4 8.4-10.2 mg/dL Bilirubin Total 0.5 0.0-1.0 mg/dL Aspartate Amino Transferase 30 5-37 U/L Alanine Aminotransferase 38 0-40 U/L Total Protein 7.2 6.5-8.0 g/dL Albumin Level 4.4 3.5-5.0 g/dL Alkaline Phosphatase 56 39-117 U/L Lipid Panel Reviewed date:01/30/2025 04:43:16 AM Interpretation: Performing Lab:[facility], [address] [place] [phone] Notes/Report: Triglycerides 64 <150 mg/dL Desirable Triglyceride: less than 150 mg/dL Borderline High Triglyceride 150-199 mg/dL High Triglyceride: 200-499 mg/dL Very High Triglyceride: greater than or equal to 5OO mg/dL Cholesterol 228 <200 mg/dL Desirable Cholesterol: less than 200 mg/dL Borderline High Cholesterol: 200-239 mg/dL High Cholesterol: greater than 239 mg/dL LDL Cholesterol Calculated 151 <100 mg/dL Desirable LDL: less than 100 mg/dL Near Optimal/Above Optimal LDL: 110-129 mg/dL Borderline High LDL: 130-159 mg/dL High LDL: 160-189 mg/dL Very High LDL: greater than or equal to 190 mg/dL HDL Cholesterol 65 >40 mg/dL Desirable HDL: greater than 40 mg/dL Note: This HDL assay may give artificially low results in patients with liver disease. Prostate Specific Antigen Reviewed date:01/30/2025 04:43:16 AM Interpretation: Performing Lab:[facility], [address] [place] [phone] Notes/Report: Prostate Specific Antigen 3.42 <0.05-4.0 ng/mL PSA methodology: Amos Alinity i Chemiluminescent Microparticle Immunoassay (CMIA) Reason For Referral Reason Evaluate and Treat Diagnosis 1 Hearing loss (H91.90 ) Referral Organization Dinesh Hernandez III, MD Referring Provider First Name Dinesh Referring Provider Last Name Mary Referring Provider Speciality Internal M edicine Referred Provider Center Hearing, a [facility] Referred Provider Specialty Audiologists General Notes D, [...] Problem Status W/U Status Risk Notes Problem 4932611 Former smoker (Z87.891) Active confirmed He is strongly motivated not to smoke. He has a plan to prevent relapse in times of stress. Problem 149334620 Asthma (J45.909) Active confirmed He has had no wheezing since his last visit. He denies any recent allergies. Problem Benign prostatic hyperplasia (214460020) BPH (benign prostatic hyperplasia) (N40.0) Active confirmed He rises from sleep at most once a night to urinate. We have discussed lifestyle modifications he can make to reduce nocturia. He denies dysuria or hematuria. Problem 10968837 Allergic rhinitis (J30.9) Active confirmed He had only a few sniffles during pollen season this spring. He usually experiences rhinitis, more in the fall and we discussed various therapies. He could pursue. Problem 20330150 Hearing loss (H91.90) Active confirmed He has made an appointment to go to an roads supervisor to get hearing aids. Examination of his ears today was unremarkable Problem 480105363 Multiple environmental allergies (Z91.09) Active confirmed He will use antihistamines as needed as well as fluticasone. He will call me if he needs prescription medication. Problem 949983402018569 Colonoscopy refused (Z53.20) Active confirmed In the past he did not want to have a colonoscopy. After we discussed it again today he did agree to the procedure and he was referred to gastroenterolog y. Vital Signs Heart Rate 78 /min 10/06/2024 Temperature 98.2 degrees Fahrenheit 10/06/2024 Blood pressure diastolic 76 mm Hg 10/06/2024 Height 68 in 10/06/2024 Blood pressure systolic 135 mm Hg 10/06/2024 Weight 148 lbs 10/06/2024 BMI 22.5 kg/m2 10/06/2024 Encounters Encounter Location Date Provider Diagnosis MD Gerald Simpson III [place] [address] 03/24/2024 Dinesh Hernandez BPH (benign prostati c hyperplasia) N40.0 ; Hearing loss H91.90 ; Asthma J45.909 ; Former smoker Z87.891 ; Multiple environmental allergies Z91.09 ; Allergic rhinitis J30.9 and Colonoscopy refused Z53.20 Dinesh Hernandez III, MD [address] [place] [address] [place] [address] 10/06/2024 Dinesh Hernandez Asthma J45.909 ; Colonoscopy refused Z53.20 ; Former smoker Z87.891 ; Multiple environmental allergies Z91.09 ; Hearing loss H91.90 and BPH (benign prostatic hyperplasia) N40.0 MD Gerald Simpson III [place] [address] 03/15/2024 Dinesh Hernandez Assessments Encounter Date Diagnosis (ICD [...] made an appointment to go to an roads supervisor to get hearing aids. Examination of his ears today was unremarkable 10/06/2024 Asthma (ICD-10 - J45.909) He has had no wheezing since his last visit. He denies any recent allergies. 10/06/2024 Colonoscopy refused (ICD-10 - Z53.20) In the past he did not want to have a colonoscopy. After we discussed it again today he did agree to the procedure and he was referred to gastroenterology. 03/24/2024 Asthma (ICD-10 - J45.909) He has had no wheezing since his last visit. He denies any recent allergies. 10/06/2024 Former smoker (ICD-10 - Z87.891) He is strongly motivated not to smoke. He has a plan to prevent relapse in times of stress. 03/24/2024 Former smoker (ICD-10 - Z87.891) He is strongly motivated not to smoke. He has a plan to prevent relapse in times of stress. 10/06/2024 Multiple environmental allergies (ICD-10 - Z91.09) He will use antihistamines as needed as well as fluticasone. He will call me if he needs prescription medication. 03/24/2024 Multiple environmental allergies (ICD-10 - Z91.09) He will use antihistamines as needed as well as fluticasone. He will call me if he needs prescription medication. 10/06/2024 Hearing loss (ICD-10 - H91.90) He has made an appointment to go to an roads supervisor to get hearing aids. Examination of his ears today was unremarkable 03/24/2024 Allergic rhinitis (ICD-10 - J30.9) He had only a few sniffles during pollen season this spring. He usually experiences rhinitis, more in the fall and we discussed various therapies. He could pursue. 10/06/2024 BPH (benign prostatic hyperplasia) (ICD-10 - N40.0) He rises from sleep at most once a night to urinate. We have discussed lifestyle modifications he can make to reduce nocturia. He denies dysuria or hematuria. 03/24/2024 Colonoscopy refused (ICD-10 - Z53.20) In the past he did not want to have a colonoscopy. After we discussed it again today he did agree to the procedure and he was referred to gastroenterology. Plan Of Treatment Pending Test Test Name Order Date PROFILE, FASTING (COMPREHENSIVE METABOLI C) 11/07/2022 PROFILE, FASTING (COMPREHENSIVE METABOLI C) 07/24/2016 PROFILE, FASTING (COMPREHENSIVE METABOLI C) 10/06/2024 PROFILE, FASTING (COMPREHENSIVE METABOLI C) 08/29/2021 PROFILE, FASTING (COMPREHENSIVE METABOLI C) 03/24/2024 PROFILE, FASTING (COMPREHENSIVE METABOLI C) 09/25/2016 LIPID PANEL 09/25/2016 LIPID PANEL 07/24/2016 FREE T4 (FT4) 08/29/2021 TSH (THYROID STIMULATING HORMONE) 2021 PSA, TOTAL 11/07/2022 PSA, TOTAL 08/29/2021 PSA, TOTAL 09/25/2016 PSA, TOTAL 07/24/2016 PSA, TOTAL 10/06/2024 PSA, TOTAL 03/24/2024 CBC w DIFF 03/24/2024 CBC w DIFF 11/07/2022 CBC w DIFF 08/29/2021 CBC w DIFF 09/25/2016 CBC w DIFF 07/24/2016 CBC w DIFF 10/06/2024 VITAMIN D 25-OH TOTAL 08/29/2021 Lipid Panel 10/06/2024 Lipid Panel 03/24/2024 Lipid Panel 11/07/2022 Lipid Panel 08/29/2021 Next Appt Details Provider Name:Dinesh Hernandez , 03/28/2025 09:30:00 AM, [address] [place] [address] [address], [address], [place], [address], Insurance Providers Payer Name Payer Address Payer Phone Subscriber Number Group Number Insured Name Patient Relationship to Insured Coverage Start Date Coverage End Date [facility] [address] [facility] [address] [facility] [phone] [id number] ASHLEY CONTRERAS Self - patient is the insured Medical (General) History Medical History History ICD Code Allergic rhinitis J30.9 Asthma J45.909 Multiple environmental allergies Z91.09 hearing loss injury to tip of right fourth finger wit h skin graft age 9 former smoker Surgical History Surgery Date(Month/Year) No history age 9 left breast skin donor scar laceration tip right fourth finger requi ring skin graft 1980 Hospitalization History Reason Date(Month/Year) No history
== END 2025-02-14 12:05 | disposition home or self-care (01) ==
LOC: HO.HAP 12:04
PROVIDERS: Visit Provider Internal Medicine Medical Oncology
DX: Z46.1 Encounter for fitting and adjustment of hearing aid (principal); H90.3 Sensorineural hearing loss, bilateral
CPT/HCPCS: 92593

== ENCOUNTER 2025-03-14 10:22 | Outpatient (REF) | payer OTHER, SELFPAY ==
[2025-03-14 10:34] LABS: MANUAL DIFF FLAG NO
[2025-03-14 11:02] LABS: Hematocrit 49.0 % (42.0-52.0); Hemoglobin 16.3 g/dl (14.0-18.0); Imm Gran Abs Auto 0.02 X10*3/uL (0.00-0.03); Imm Gran Pct Auto 0.3 % (0.0-0.4); Lymphocytes Absolute Auto 2.4 X10*3/uL (1.2-4.9); Mean Corpuscular HGB Conc 33.3 g/dl (31.0-36.0); Mean Corpuscular Hemoglobin 30.1 pg (27.0-33.0); Mean Corpuscular Volume 90.6 fL (80.0-98.0); NRBC Abs Auto 0.000 X10*3/uL (0.0-0.012); NRBC Pct Auto 0.0 /100WBC (0.0-0.2); Platelet Count 182 X10*3/uL (160-400); Red Blood Count 5.41 X10*6/uL (4.60-5.80); White Blood Count 6.7 X10*3/uL (4.8-10.8)
[2025-03-14 11:58] LABS: Alanine Aminotransferase 28 U/L (0-40); Albumin Level 4.8 g/dL (3.5-5.0); Alkaline Phosphatase 61 U/L (39-117); Anion Gap 16 (12-20); Aspartate Amino Transferase 27 U/L (5-37); Blood Urea Nitrogen 12 mg/dL (9-16); Calcium 9.2 mg/dL (8.4-10.2); Carbon Dioxide 24 mmol/L (22-29); Chloride 107 mmol/L (96-108); Cholesterol 236 mg/dL (<200); Estimated Glomerular Filt Rate > 60; HDL Cholesterol 70 mg/dL (>40); Potassium 3.9 mmol/L (3.3-5.1); Sodium 143 mmol/L (135-145); Total Protein 7.6 g/dL (6.5-8.0); Triglycerides 59 mg/dL (<150)
[2025-03-14 12:14] LABS: Prostate Specific Antigen 2.89 ng/mL (<0.05-4.0)
== END 2025-03-14 10:23 | disposition home or self-care (01) ==
LOC: HO.LAB 10:22
PROVIDERS: PCP Internal Medicine Medical Oncology; Visit Provider Internal Medicine Medical Oncology
DX: Z13.6 Encounter for screening for cardiovascular disorders (principal); Z12.5 Encounter for screening for malignant neoplasm of prostate; N40.0 Benign prostatic hyperplasia without lower urinary tract symptoms; J45.909 Unspecified asthma, uncomplicated
CPT/HCPCS: 36415; 80053; 80061; 84153; 85025

== ENCOUNTER 2025-03-23 08:20 | Outpatient (REF) | payer SELFPAY | END 2025-03-23 08:21 | disposition home or self-care (01) | LOC: HO.HAP 08:20 | PROVIDERS: Visit Provider Internal Medicine Medical Oncology | DX: H90.3 Sensorineural hearing loss, bilateral (principal) | CPT/HCPCS: 92700; V5264 ==